=== PATIENT | male | born 1945 | race Caucasian/White ===

== ENCOUNTER 2017-07-20 17:23 | Inpatient (IN) ==
[2017-07-20 17:53] LABS: Hematocrit 38.8 % (37.5-50.1); Hemoglobin 13.5 g/dL (12.9-16.9); Lymphocytes # 0.9 K/mcL (0.6-4.6); Mean Corpuscular HGB Conc 34.8 g/dL (31.6-35.5); Mean Corpuscular Hemoglobin 33.2 pg (28.0-33.3); Mean Corpuscular Volume 95.3 fL (83.0-100.0); Mean Platelet Volume 10.9 fL (9.4-12.4); Platelet Count 260 K/mcL (140-400); Red Blood Count 4.07 M/mcL (4.19-5.50); Red Cell Distribution Width 14.1 % (11.5-14.5)
[2017-07-20 18:00] LABS: INR 1.2; Prothrombin Time 13.1 Seconds (9.4-12.1)
--- NOTE | 2017-07-20 18:00 | Emergency Department Note ---
Disposition Clinical Impression: Pleural effusion, Generalized weakness Altered mental status Qualifiers: Altered mental status type: unspecified Qualified Code(s): R41.82 - Altered mental status, unspecified Dyspnea Qualifiers: Dyspnea type: unspecified Qualified Code(s): R06.00 - Dyspnea, unspecified Metastatic lung cancer (metastasis from lung to other site) Qualifiers: Laterality: right Qualified Code(s): C34.91 - Malignant neoplasm of unspecified part of right bronchus or lung Disposition: Admitted As Inpatient Condition: Fair Time of Disposition: 22:16 Altered Mental Status HPI - General Chief Complaint: ED Fall Stated Complaint: fall, AMS Time Seen by Provider: 07/20/17 17:29 Source: EMS Mode of arrival: EMS Limitations: altered mental status Nursing Notes Reviewed: Yes Vital Signs Reviewed: Yes - History of Present Illness HPI Narrative: Patient is a 71-year-old male who presents to [facility] ED with concern for altered mental status and hypoxia. Family called EMS due to worsening altered mental status. They state he has been talking out of his head for the last 2 days. He is also been found after a fall down on the ground. Unknown how long QT was down for. His son and [id number] state that they check on him periodically but he lives at home by himself. Patient was diagnosed with lung cancer approximately one month ago and has underwent gamma knife radiation to the brain as well as started his first chemotherapy treatment on 07/16/2017. Patient is followed by the cancer center here Dr. Regalado. Patient continues to smoke every day. He is not on any home oxygen. Per EMS, upon their arrival, he was 71% on room air. They placed him on a nonrebreather. MD complaint: altered mental status, weakness Onset (ago): day(s) Timing confirmed by: family member Consistency of Symptoms: getting worse Context: cancer Associated symptoms: Reports: shortness of breath, other (weakness). Denies: chest pain, cough, fever, chills, nausea/vomiting, weakness - Related Data Home Medications Medication Instructions Recorded Confirmed Albuterol Sulfate [Proair Hfa] 2 puff IH QID 03/25/17 07/16/17 Aspirin Enteric Coated [Aspirin EC] 81 mg PO DAILY 03/25/17 07/16/17 Citalopram Hydrobromide [Celexa] 20 mg PO DAILY 03/25/17 07/16/17 Gabapentin [Neurontin] 300 mg PO TID 03/25/17 07/16/17 Insulin ASPART [Novolog Flexpen] 6 unit SQ AD PRN 03/25/17 07/16/17 Lisinopril [Zestril] 10 mg PO DAILY 03/25/17 07/16/17 Metformin HCl [Glucophage] 1,000 mg PO BID 03/25/17 07/16/17 Tiotropium [Spiriva] 18 mcg IH DAILY 03/25/17 07/16/17 Atorvastatin [Lipitor] 40 mg PO HS 05/08/17 07/16/17 Famotidine [Pepcid] 40 mg PO DAILY 05/08/17 07/16/17 Tramadol HCl [Ultram] 50 mg PO QID PRN 07/08/17 07/16/17 Previous Rx's Medication Instructions Recorded Dexamethasone [Decadron] 4 mg PO BID #36 tab 06/07/17 Ondansetron HCl [Zofran] 4 mg PO Q6H PRN #30 tablet 06/07/17 Prochlorperazine Maleate 10 mg PO Q6HR PRN #90 tablet 06/07/17 [Compazine] Megestrol Acetate [Megace] 800 mg PO DAILY #400 mls 07/08/17 Tetrahydrozoline HCl [Eye Drops] 15 ml OP BID #1 bottle 07/08/17 Allergies Allergy/AdvReac Type Severity Reaction Status Date / Time No Known Allergies Allergy Verified 07/16/17 11:03 All systems ED: reviewed and negative except as stated. Past Medical History - Past Medical History Attestation: Yes The following information was validated with the patient. Source: patient Medical history: Reports: cancer, diabetes, hyperlipidemia, hypertension Surgical history: Reports: orthopedic, other Psychiatric history: Reports: anxiety, depression - Social History Smoking Status: Current every day smoker Smokeless Tobacco Status: No Alcohol use: Reports: none Drug use: Reports: none Physical Exam - General Limitations: altered mental status General appearance: alert - Head Head exam: atraumatic, normocephalic, normal inspection - Eye Eye exam: Present: normal appearance, PERRL, EOMI - ENT ENT exam: normal exam, normal oropharynx, mucous membranes moist - Neck Neck exam: Present: normal inspection, full ROM, trachea midline - Chest Chest inspection: Present: normal inspection, symmetric chest wall rise - Respiratory Respiratory exam: Present: other (Wheezes present on the left lung; no breath sounds heard over the right lung) - Cardiovascular Cardiovascular exam: Present: normal rhythm, tachycardia, normal heart sounds - Abdominal Exam Abdominal exam: Present: soft, Non-Tender, other (Livedo reticularis present). Absent: tenderness, distention, guarding, rebound, rigidity - Extremities Exam Extremities exam: Present: normal inspection, full ROM, normal capillary refill. Absent: tenderness, pedal edema - Neurological Exam Neurological exam: Present: alert, other (Confused to date) - Psychiatric Psychiatric exam: Present: normal affect, normal mood - Skin Skin exam: Present: warm, dry, intact Course Course Narrative: Patient seen and examined. Complaint of altered mental status and report of hypoxemia with a pulse ox of 71% per EMS. Upon his arrival, we had difficulty obtaining an oxygen saturation. An ABG was obtained which was normal. Patient is on a nonrebreather. Denying any symptoms at this time. I discussed with the family who state he is a full code at this time. Critical care workup initiated. - Reevaluation(s) Reevaluation #1: Patient's lab work showed a mild leukocytosis. CT scans showed no acute traumatic injury. However he does have signs of metastatic disease in the retroperitoneal area as well as the adrenal glands. The chest x-ray showed white out of the right lung with mild midline shift of the mediastinal structures.. A thoracentesis was done with 2.5 L of fluid drained. There was more fluid that could have been drained. However, the catheter was removed to prevent possible reexpansion pulmonary edema. The fluid drained with serosanguineous appearing. Repeat chest x-ray showed improved aeration in the upper right lung frey. There was improvement in the mediastinal shift. Patient's blood pressure did drop to a systolic of 80s. 25 mg of albumin ordered to see if this would help his pressure since patient is likely protein calorie malnourished. I discussed with hospitalist Dr. Jackman who accepted patient for admission. Time: 22:15 Vital Signs Temperature 97.5 F L 07/20/17 17:25 Pulse Rate 99 07/20/17 17:25 Respiratory Rate 24 07/20/17 17:25 Blood Pressure 113/92 07/20/17 17:25 O2 Sat by Pulse Oximetry 0 07/20/17 17:25 Temperature 97.5 F L 07/20/17 17:25 Pulse Rate 97 07/20/17 21:28 Respiratory Rate 20 07/20/17 21:28 Blood Pressure 95/61 07/20/17 21:28 O2 Sat by Pulse Oximetry 99 07/20/17 21:28 Oxygen Delivery Oxygen Delivery Nasal Cannula Altered Mental Status - Medical Records Medical records reviewed: Yes I reviewed the patient's medical records. - Lab Data Lab results reviewed: Yes I reviewed the patient's lab results. Result diagrams: 07/20/17 17:43 07/20/17 17:43 Lab Results 07/20/17 07/20/17 07/20/17 Range/Units 17:43 17:43 17:43 WBC 14.5 H (4.3-11.1) K/mcL RBC 4.07 L (4.19-5.50) M/mcL Hgb 13.5 (12.9-16.9) g/dL Hct 38.8 (37.5-50.1) % MCV 95.3 (83.0-100.0) fL MCH 33.2 (28.0-33.3) pg MCHC 34.8 (31.6-35.5) g/dL RDW 14.1 (11.5-14.5) % Plt Count 260 (140-400) K/mcL MPV 10.9 (9.4-12.4) fL Seg Neutrophils % 82.0 % Lymphocytes % 6.0 % Monocytes % 10.0 % Eosinophils % 2.0 % Neutrophils # 11.9 H (1.6-8.9) K/mcL Lymphocytes # 0.9 (0.6-4.6) K/mcL Monocytes # 1.5 H (0.0-1.3) K/mcL Eosinophils # 0.3 (0.0-0.6) K/mcL Platelet Estimate Normal (Normal) Poikilocytosis 1+ A (Not Present) Anisocytosis 1+ A (Not Present) Daniel Cells 1+ A (Not Present) PT 13.1 H (9.4-12.1) Seconds INR 1.2 APTT 34.6 (26.0-36.0) Seconds Sample Site ABG pH (7.32-7.45) pH Units ABG pCO2 (35-45) mmHg ABG pO2 (85-104) mmHg ABG HCO3 (21-27) mEq/L ABG Total CO2 (20-26) mEq/L ABG O2 Saturation (95-98) % ABG Base Excess (-2 to 3) mEq/L Serafin Test Carboxyhemoglobin (0-5) % O2 Delivery Device Inspired O2 (1-15=lpm [id number]=%) Sodium 138 (136-145) mEq/L Potassium 4.5 (3.5-5.1) mEq/L Chloride 105 (98-107) mEq/L Carbon Dioxide 22 L (23-29) mEq/L BUN 36 H (8-23) mg/dL Creatinine 1.12 (0.70-1.30) mg/dL Est GFR ( Amer) > 60 (> 60) Est GFR (Non-Af Amer) > 60 (> 60) BUN/Creatinine Ratio 32 H (6-26) Glucose 237 H (70-105) mg/dL POC Glucose (70-99) mg/dL Calculated Osmolality 302 H (280-300) Calcium 8.6 (8.6-10.3) mg/dL Total Bilirubin 1.0 (0.3-1.0) mg/dL Direct Bilirubin 0.3 H (0.0-0.2) mg/dL Indirect Bilirubin 0.7 (0.0-1.2) mg/dL AST 10 L (13-39) Units/L ALT 18 (7-52) Units/L Alkaline Phosphatase 93 (34-104) Units/L Ammonia (16-53) mcmol/L Creatine Kinase 38 (30-223) Units/L Troponin I < 0.03 (< 0.04) ng/mL Serum Total Protein 5.5 L (6.4-8.9) g/dL Albumin 2.9 L (3.5-5.7) g/dL Globulin 2.6 (2.4-3.5) g/dL Albumin/Globulin Ratio 1.1 (1.1-2.2) TSH 1.648 (0.340-5.600) mcIU/mL Urine Color (Yellow) Urine Clarity (Clear) Urine pH (5.0-8.0) pH Units Ur Specific [place] (1.010-1.025) Urine Protein (Neg-Trace) mg/dL Urine Glucose (UA) (Normal) mg/dL Urine Ketones (Negative) mg/dL Urine Blood (Negative) Urine Nitrite (Negative) Urine Bilirubin (Negative) Urine Urobilinogen (Normal) mg/dL Ur Leukocyte Esterase (Negative) Ur Culture Indicated? (NO) Urine Opiates Screen (Hecmsc=176) ng/mL Ur Barbiturates Screen (Dhkkom=470) ng/mL Ur Phencyclidine Scrn (Cutoff=25) ng/mL Ur Amphetamines Screen (Vskerw=5678) ng/mL U Benzodiazepines Scrn (Mkfixi=771) ng/mL Urine Cocaine Screen (Cutoff= 300) ng/mL U Marijuana (THC) Screen (Cutoff = 50) ng/mL Ethyl Alcohol < 10 (Less than 10) mg/dL 07/20/17 07/20/17 07/20/17 Range/Units 17:43 17:52 17:53 WBC (4.3-11.1) K/mcL RBC (4.19-5.50) M/mcL Hgb (12.9-16.9) g/dL Hct (37.5-50.1) % MCV (83.0-100.0) fL MCH (28.0-33.3) pg MCHC (31.6-35.5) g/dL RDW (11.5-14.5) % Plt Count (140-400) K/mcL MPV (9.4-12.4) fL Seg Neutrophils % % Lymphocytes % % Monocytes % % Eosinophils % % Neutrophils # (1.6-8.9) K/mcL Lymphocytes # (0.6-4.6) K/mcL Monocytes # (0.0-1.3) K/mcL Eosinophils # (0.0-0.6) K/mcL Platelet Estimate (Normal) Poikilocytosis (Not Present) Anisocytosis (Not Present) Daniel Cells (Not Present) PT (9.4-12.1) Seconds INR APTT (26.0-36.0) Seconds Sample Site ABG pH (7.32-7.45) pH Units ABG pCO2 (35-45) mmHg ABG pO2 (85-104) mmHg ABG HCO3 (21-27) mEq/L ABG Total CO2 (20-26) mEq/L ABG O2 Saturation (95-98) % ABG Base Excess (-2 to 3) mEq/L Serafin Test Carboxyhemoglobin 4.6 (0-5) % O2 Delivery Device Inspired O2 (1-15=lpm [id number]=%) Sodium (136-145) mEq/L Potassium (3.5-5.1) mEq/L Chloride (98-107) mEq/L Carbon Dioxide (23-29) mEq/L BUN (8-23) mg/dL Creatinine (0.70-1.30) mg/dL Est GFR ( Amer) (> 60) Est GFR (Non-Af Amer) (> 60) BUN/Creatinine Ratio (6-26) Glucose (70-105) mg/dL POC Glucose 112 H (70-99) mg/dL Calculated Osmolality (280-300) Calcium (8.6-10.3) mg/dL Total Bilirubin (0.3-1.0) mg/dL Direct Bilirubin (0.0-0.2) mg/dL Indirect Bilirubin (0.0-1.2) mg/dL AST (13-39) Units/L ALT (7-52) Units/L Alkaline Phosphatase (34-104) Units/L Ammonia 31 (16-53) mcmol/L Creatine Kinase (30-223) Units/L Troponin I (< 0.04) ng/mL Serum Total Protein (6.4-8.9) g/dL Albumin (3.5-5.7) g/dL Globulin (2.4-3.5) g/dL Albumin/Globulin Ratio (1.1-2.2) TSH (0.340-5.600) mcIU/mL Urine Color (Yellow) Urine Clarity (Clear) Urine pH (5.0-8.0) pH Units Ur Specific [place] (1.010-1.025) Urine Protein (Neg-Trace) mg/dL Urine Glucose (UA) (Normal) mg/dL Urine Ketones (Negative) mg/dL Urine Blood (Negative) Urine Nitrite (Negative) Urine Bilirubin (Negative) Urine Urobilinogen (Normal) mg/dL Ur Leukocyte Esterase (Negative) Ur Culture Indicated? (NO) Urine Opiates Screen (Wkvewo=972) ng/mL Ur Barbiturates Screen (Qketaw=688) ng/mL Ur Phencyclidine Scrn (Cutoff=25) ng/mL Ur Amphetamines Screen (Whuhsa=4059) ng/mL U Benzodiazepines Scrn (Bylynb=878) ng/mL Urine Cocaine Screen (Cutoff= 300) ng/mL U Marijuana (THC) Screen (Cutoff = 50) ng/mL Ethyl Alcohol (Less than 10) mg/dL 07/20/17 07/20/17 07/20/17 Range/Units 17:57 18:02 18:02 WBC (4.3-11.1) K/mcL RBC (4.19-5.50) M/mcL Hgb (12.9-16.9) g/dL Hct (37.5-50.1) % MCV (83.0-100.0) fL MCH (28.0-33.3) pg MCHC (31.6-35.5) g/dL RDW (11.5-14.5) % Plt Count (140-400) K/mcL MPV (9.4-12.4) fL Seg Neutrophils % % Lymphocytes % % Monocytes % % Eosinophils % % Neutrophils # (1.6-8.9) K/mcL Lymphocytes # (0.6-4.6) K/mcL Monocytes # (0.0-1.3) K/mcL Eosinophils # (0.0-0.6) K/mcL Platelet Estimate (Normal) Poikilocytosis (Not Present) Anisocytosis (Not Present) Daniel Cells (Not Present) PT (9.4-12.1) Seconds INR APTT (26.0-36.0) Seconds Sample Site R Radial ABG pH 7.38 (7.32-7.45) pH Units ABG pCO2 40 (35-45) mmHg ABG pO2 372 H (85-104) mmHg ABG HCO3 24 (21-27) mEq/L ABG Total CO2 25 (20-26) mEq/L ABG O2 Saturation 100 H (95-98) % ABG Base Excess -1 (-2 to 3) mEq/L Serafin Test N/A Carboxyhemoglobin (0-5) % O2 Delivery Device NRB Inspired O2 15.0 (1-15=lpm [id number]=%) Sodium (136-145) mEq/L Potassium (3.5-5.1) mEq/L Chloride (98-107) mEq/L Carbon Dioxide (23-29) mEq/L BUN (8-23) mg/dL Creatinine (0.70-1.30) mg/dL Est GFR ( Amer) (> 60) Est GFR (Non-Af Amer) (> 60) BUN/Creatinine Ratio (6-26) Glucose (70-105) mg/dL POC Glucose (70-99) mg/dL Calculated Osmolality (280-300) Calcium (8.6-10.3) mg/dL Total Bilirubin (0.3-1.0) mg/dL Direct Bilirubin (0.0-0.2) mg/dL Indirect Bilirubin (0.0-1.2) mg/dL AST (13-39) Units/L ALT (7-52) Units/L Alkaline Phosphatase (34-104) Units/L Ammonia (16-53) mcmol/L Creatine Kinase (30-223) Units/L Troponin I (< 0.04) ng/mL Serum Total Protein (6.4-8.9) g/dL Albumin (3.5-5.7) g/dL Globulin (2.4-3.5) g/dL Albumin/Globulin Ratio (1.1-2.2) TSH (0.340-5.600) mcIU/mL Urine Color Dark Yellow (Yellow) Urine Clarity Clear (Clear) Urine pH 5.0 (5.0-8.0) pH Units Ur Specific [place] 1.027 H (1.010-1.025) Urine Protein Negative (Neg-Trace) mg/dL Urine Glucose (UA) Normal (Normal) mg/dL Urine Ketones Negative (Negative) mg/dL Urine Blood Negative (Negative) Urine Nitrite Negative (Negative) Urine Bilirubin Negative (Negative) Urine Urobilinogen Normal (Normal) mg/dL Ur Leukocyte Esterase Negative (Negative) Ur Culture Indicated? NO (NO) Urine Opiates Screen Negative (Gjytam=438) ng/mL Ur Barbiturates Screen Negative (Mrahju=129) ng/mL Ur Phencyclidine Scrn Negative (Cutoff=25) ng/mL Ur Amphetamines Screen Negative (Vhjipn=6025) ng/mL U Benzodiazepines Scrn Negative (Jaultk=747) ng/mL Urine Cocaine Screen Negative (Cutoff= 300) ng/mL U Marijuana (THC) Screen Negative (Cutoff = 50) ng/mL Ethyl Alcohol (Less than 10) mg/dL - Radiology Data Radiology results reviewed: Yes I reviewed the patient's radiology results. Chest X-Ray 07/20/17 17:29 IMPRESSION: 1. Interval development of complete white out right hemithorax presumably related to pleural effusion and consolidation. Underlying neoplasia cannot be excluded. 2. Underaeration left parahilar lung presumably related to expiratory phase of respiration during the radiograph. 3. No pneumothorax following right IJ catheter placement. D/ / Douglas Chamberlain / Douglas Chamberlain Interpreting Provider: Douglas Chamberlain - EKG Data EKG attestation: Yes I reviewed and interpreted this EKG. EKG results narrative: EKG done at 1743 shows normal sinus rhythm with a rate of [address] elevation. Mild depression noted in leads V 5 and V6. Normal axis. TPA Checklist - LKW: 3-4.5 hrs Add. Warnings/Precautions Patient/family understanding: The patient/family members have been counseled and understood the risk, benefit , and alternatives of treatment.
[2017-07-20 18:02] LABS: Activated Partial Thrombo Time 34.6 Seconds (26.0-36.0)
[2017-07-20 18:03] LABS: ABG Base Excess -1 mEq/L (-2 to 3); ABG HCO3 24 mEq/L (21-27); ABG Oxygen Saturation 100 % (95-98); ABG PCO2 40 mmHg (35-45); ABG PH 7.38 pH Units (7.32-7.45); ABG PO2 372 mmHg (85-104); ABG TCO2 25 mEq/L (20-26)
[2017-07-20] MEDS ORDERED: Ipratropium/Albuterol Neb 3 ML IH ONE (18:11)
[2017-07-20 18:17] LABS: Alanine Aminotransferase 18 Units/L (7-52); Albumin 2.9 g/dL (3.5-5.7); Albumin/Globulin Ratio 1.1 (1.1-2.2); Alkaline Phosphatase 93 Units/L (34-104); Aspartate Amino Transferase 10 Units/L (13-39); BUN/Creatinine Ratio 32 (6-26); Bilirubin,Direct 0.3 mg/dL (0.0-0.2); Bilirubin,Indirect 0.7 mg/dL (0.0-1.2); Blood Urea Nitrogen 36 mg/dL (8-23); Calcium 8.6 mg/dL (8.6-10.3); Carbon Dioxide 22 mEq/L (23-29); Chloride 105 mEq/L (98-107); Creatine Kinase 38 Units/L (30-223); Ethanol < 10 mg/dL (Less than 10); Globulin 2.6 g/dL (2.4-3.5); Glucose 237 mg/dL (70-105); Osmolality,Calculated 302 (280-300); Potassium 4.5 mEq/L (3.5-5.1); Sodium 138 mEq/L (136-145); Total Protein 5.5 g/dL (6.4-8.9); Troponin I < 0.03 ng/mL (< 0.04); eGFR For African Americans > 60 (> 60); eGFR For Non-African Americans > 60 (> 60)
[2017-07-20 18:17] LABS: Bilirubin,Urine Negative (Negative); Blood,Urine Negative (Negative); Clarity,Urine Clear (Clear); Color,Urine Dark Yellow (Yellow); Glucose,Urine (UA) Normal (Normal); Ketones,Urine Negative (Negative); Leukocyte Esterase,Urine Negative (Negative); Nitrite,Urine Negative (Negative); Protein,Urine Negative (Neg-Trace); Specific Gravity,Urine 1.027 (1.010-1.025); Urobilinogen,Urine Normal (Normal)
[2017-07-20 18:22] LABS: Eosinophils # 0.3 K/mcL (0.0-0.6); Monocytes # 1.5 K/mcL (0.0-1.3); Neutrophils # 11.9 K/mcL (1.6-8.9)
[2017-07-20 18:23] LABS: Anisocytosis 1+ (Not Present); Burr Cells 1+ (Not Present); Platelet Estimate Normal (Normal); Poikilocytosis 1+ (Not Present)
[2017-07-20 18:24] LABS: Amphetamine Screen,Urine Negative ng/mL (Cutoff=1000); Barbiturate Screen,Urine Negative ng/mL (Cutoff=200); Benzodiazepines Screen,Urine Negative ng/mL (Cutoff=200); Cannabinoid Screen,Urine Negative ng/mL (Cutoff = 50); Cocaine Screen,Urine Negative ng/mL (Cutoff= 300); Opiate Screen,Urine Negative ng/mL (Cutoff=300); Phencyclidine Screen,Urine Negative ng/mL (Cutoff=25)
[2017-07-20 18:29] LABS: Thyroid Stimulating Hormone 1.648 mcIU/mL (0.340-5.600)
[2017-07-20] MEDS ORDERED: Albumin 25% 25gram/100mL 25 GM/100 ML IV.SOLN IVPB ONE (20:56)
[2017-07-20] MEDS ORDERED: *HR* HYDROcodone/Acet 5/325 mg TABLET PO PRN (22:00)
[2017-07-20] MEDS ORDERED: Naloxone 0.4 MG/ML INJ IVP PRN (22:00)
[2017-07-20] MEDS ORDERED: D5% in Water 1,000 ML IVC PRN (22:05)
[2017-07-20] MEDS ORDERED: Dextrose Gel 15 GM/37.5 ML TUBE PO PRN ×2 (22:05)
[2017-07-20] MEDS ORDERED: *HR* Dextrose 50 % in Water (Syg) 50 ML SYRINGE IVP PRN (22:05)
[2017-07-20] MEDS ORDERED: Ondansetron ODT 4 MG TAB.RAPDIS PO PRN (22:09)
--- NOTE | 2017-07-20 22:09 | Internal Med History&Physical ---
<Jorge Sherwood - Last Filed: 07/20/17 23:18> Date of Encounter: 07/20/17 Time of Encounter: 22:09 Internal Medicine - H&P: HPI Chief complaint: AMS Admitted From: Home History of present illness: Mr. Izquierdo is a 71 year old male with past medical history of prostate cancer, type 2 diabetes, hypertension, prior CVA, recently diagnosed metastatic lung cancer presents to emergency room from home with complaint of altered mental status. At time of interview, patient does respond to questions however he he does appear confused and is not oriented to self, place or time. He is no family present at bedside and majority of history of present illness is obtained through chart review. Per chart review, family called EMS due to altered mental status for the last 2 days. He also reportedly experienced a fall with unknown down time. He reportedly lives at home by himself with his son and [id number] checking on him periodically. He had chemotherapy on 07/16/17 as well as gamma knife radiation to the brain for his metastatic lung cancer on 06/27/17. He also had a thoracentesis performed on 07/05 with 1.5L of fluid drained in [place] ED. Upon presentation to the emergency room, patient was reportedly hypoxic with oxygen saturation of 71% on room air. Respirations 24, pulse of 99. Labs were significant for a WBC of 14.5 ABG shows no evidence of hypoxia or hypercarbia. Remainder of labs significant only for a glucose of 237. Urine drug screen and urinalysis within normal limits. Imaging performed in the emergency room demonstrated right hemithorax filled pleural effusion and consolidation with heart and mediastinal shift, metastatic disease of the right adrenal gland and retroperitoneum, inferior right-sided prostate gland prominence likely malignancy, no evidence of acute trauma. Thoracentesis was performed emergency department with 2.5 L fluid obtained. His hypoxia did improve with this and oxygen administration, however his blood pressure did drop to a systolics of 80s. He was started on albumin in the emergency department. During time of this physicians interview, patient had no complaints and will was unsure of what brought him to the emergency department stating that "I just got here." Denies any symptoms shortness breath, chest pain, recent illness. Past Med Surg Social Fam HX - Past Medical History Medical history: cancer, diabetes, hyperlipidemia, hypertension Psychiatric history: anxiety, depression - Past Surgical History Surgical History: orthopedic, other - Social History Smoking Status: Current every day smoker Smokeless Tobacco Status: No Alcohol use: none Drug use: none Internal Medicine - H&P: Meds Albuterol Sulfate [Proair Hfa] 2 puff IH QID 03/25/17 [History] Aspirin Enteric Coated [Aspirin EC] 81 mg PO DAILY 03/25/17 [History] Citalopram Hydrobromide [Celexa] 20 mg PO DAILY 03/25/17 [History] Gabapentin [Neurontin] 300 mg PO TID 03/25/17 [History] Insulin ASPART [Novolog Flexpen] 6 unit SQ AD PRN 03/25/17 [History] Lisinopril [Zestril] 10 mg PO DAILY 03/25/17 [History] Metformin HCl [Glucophage] 1,000 mg PO BID 03/25/17 [History] Tiotropium [Spiriva] 18 mcg IH DAILY 03/25/17 [History] Atorvastatin [Lipitor] 40 mg PO HS 05/08/17 [History] Famotidine [Pepcid] 40 mg PO DAILY 05/08/17 [History] Dexamethasone [Decadron] 4 mg PO BID #36 tab 06/07/17 [Rx] Ondansetron HCl [Zofran] 4 mg PO Q6H PRN #30 tablet 06/07/17 [Rx] Prochlorperazine Maleate [Compazine] 10 mg PO Q6HR PRN #90 tablet 06/07/17 [Rx] Megestrol Acetate [Megace] 800 mg PO DAILY #400 mls 07/08/17 [Rx] Tetrahydrozoline HCl [Eye Drops] 15 ml OP BID #1 bottle 07/08/17 [Rx] Tramadol HCl [Ultram] 50 mg PO QID PRN 07/08/17 [History] 3 Allergy/AdvReac Type Severity Reaction Status Date / Time No Known Allergies Allergy Verified 07/16/17 11:03 ROS unobtainable: due to mental status All Systems PM: A 10-system review of systems was performed and is negative for pertinent findings except as documented above in the HPI. - Constitutional Vitals: Temp Pulse Resp BP Pulse Ox 97.5 F L 97 20 95/61 99 07/20/17 17:25 07/20/17 21:28 04/07/18 21:28 07/20/17 21:28 07/20/17 21:28 Exam: Gen.: Vitals noted. No acute distress. AAOx0. Resting comfortably in bed, no respiratory distress HEENT: PERRL/EOMI, oropharynx clear, Normocephalic, atraumatic. Dry mucous membranes Cardiac: Mildly tachycardic RRR, no murmur, +S1/S2 Pulmonary: Decreased breath sounds right greater than left, no wheezes, rales or rhonchi, equal chest expansion Abdomen: soft, nontender, BS noted, no guarding MSK: ROM intact, no joint swelling noted Extremities: no BLE edema, nontender calf, no cyanosis or clubbing. Abrasion on left pretibial region, well healing Neuro: Unable to assess secondary to mental status. No focal deficits noted during interview Internal Med - H&P Results - Labs CBC & Chem 7: 07/20/17 17:43 07/20/17 17:43 - Assessment and plan (1) Altered mental status Current Visit: Yes Status: Acute Assessment and plan: - Altered mental status per family possibly secondary to hypoxia versus metabolic - During time of interview, patient is alert and oriented 0 - Resting calmly as this time, will treat underlying illnesses as below Qualifiers: Altered mental status type: disorientation Qualified Code(s): R41.0 - Disorientation, unspecified (2) Pleural effusion Current Visit: Yes Status: Acute Assessment and plan: - Profusion demonstrated on both chest x-ray and chest CT performed emergency department - Status post thoracentesis with 2.5 L of fluid removed, serosanguineous in appearance - First episode of pleural effusion - Etiology is likely secondary to known malignancy. - Patient currently tolerating 2 L of oxygen via nasal cannula with saturation in the high 90s Plan - Status post thoracentesis with good oxygenation at this time - We will send fluid for analysis - Continue monitor for respiratory status (3) Metastatic lung cancer (metastasis from lung to other site) Current Visit: Yes Status: Acute Assessment and plan: Known history of right lung cancer, stage IV - Also with Dr. Lindsay at [facility] - Metastatic disease to right pelvic sidewall, bladder, right parietal region - On chemotherapy with last dose of taxotere on 4/3/18, [employer] - Likely contributing to complaints of weakness with possible altered mental status from drug side effects - We will continue treatment as outpatient Qualifiers: Laterality: right Qualified Code(s): C34.91 - Malignant neoplasm of unspecified part of right bronchus or lung (4) Prostate CA Current Visit: Yes Status: Chronic Assessment and plan: Known history of prostate cancer, demonstrated on abdominal CT Continue management as outpatient (5) Dyspnea Current Visit: Yes Status: Acute Assessment and plan: Secondary to pleural effusion as above Supplemental oxygen as needed Treat underlying illnesses as above Qualifiers: Dyspnea type: shortness of breath Qualified Code(s): R06.02 - Shortness of breath; R06.00 - Dyspnea, unspecified; R06.01 - Orthopnea (6) Diabetes Current Visit: Yes Status: Chronic Assessment and plan: - Type II DM - No A1c on record - BS in ED of 237 - SSI and A1c with morning labs. Qualifiers: Diabetes mellitus type: type 2 Diabetes mellitus terminal operator insulin use: unspecified halfway insulin use status Diabetes mellitus complication status : with unspecified complications Qualified Code(s): E11.8 - Type 2 diabetes mellitus with unspecified complications (7) Osteoarthritis Current Visit: Yes Status: Chronic Assessment and plan: - Pain management as needed. Qualifiers: Osteoarthritis location: unspecified site Osteoarthritis type: unspecified Qualified Code(s): M19.90 - Unspecified osteoarthritis, unspecified site (8) Hypertension Current Visit: Yes Status: Chronic Assessment and plan: -Borderline hypotension emergency room following thoracentesis - Currently receiving albumin infusions - We will continue to monitor closely and hold home medications as needed Qualifiers: Hypertension type: essential hypertension Qualified Code(s): I10 - Essential (primary) hypertension (9) Generalized weakness Current Visit: Yes Status: Acute Assessment and plan: - Likely related to known metastatic cancer, deconditioning, inadequate nutrition - Continue albumin, treat underlying illnesses - Reportedly lives at home and able to complete ADLs by himself - Would likely benefit from PT/OT while inpatient (10) Goals of care, counseling/discussion Current Visit: Yes Status: Acute Assessment and plan: Per ED documentation and they are discussion with patient's family, full CODE STATUS is desired. Family was not present at bedside during time of my interview. We will respect the family's wishes as patient is not capable of making his own decisions at this time. (11) DVT prophylaxis Current Visit: Yes Status: Acute Assessment and plan: Lovenox 40 mg Qday - Time Spent With Patient Total time spent is greater than 50% in coordination of care (as documented) at patient's floor/unit and/or counseling patient: less than 15 minutes <Phani Jackman - Last Filed: 07/21/17 02:10> Date of Encounter: 07/20/17 Internal Medicine - H&P: HPI History of present illness: Mr. Izquierdo is a 71 year old male All Systems PM: A 10-system review of systems was performed and is negative for pertinent findings except as documented above in the HPI. - Constitutional Vitals: Temp Pulse Resp BP Pulse Ox 100 F H 88 22 121/73 100 07/20/17 22:57 07/21/17 00:35 07/21/17 00:35 07/20/17 22:57 07/21/17 00:35 Internal Med - H&P Results - Labs CBC & Chem 7: 07/20/17 17:43 07/20/17 17:43 - Attending Attestation I examined this patient and my medical decision-making was reviewed with the Resident Physician. I agree with the documented findings, disposition and treatment plan as described except to the extent set forth below. Mr. Izquierdo is a 71 year old male with past medical history of prostate cancer, type 2 diabetes, hypertension, prior CVA, recently diagnosed metastatic lung cancer presents to emergency room from home with complaint of altered mental status. Pt is alert, awake and disoriented. Unable to provide me any history. Gen: A, A, Disoriented Chest : Diminishes BS b/l, more diminishes on Rt side.. mild wheezing. No crackles Heart: S1S2+ a/p 1. Acute hypoxic resp failure 2. Severe Rt pleural effusion 3. Metastatic lung cancer s/p thoracocentesis removed 2.5 lit fluid in the ER Pulm consult in AM cont close monitoring If BP allows will start him on Lasix 2 D Echo 4. SIRS - pt does meet SIRS criteria with fever 100,.0, mild tachycardia and source of inf as PNA 5. Rt side PNA reviewed CXR - diffuse pleural effuision on Rt side with possible infiltrates started on empirical abx Zosyn - Time Spent With Patient Total time spent is greater than 50% in coordination of care (as documented) at patient's floor/unit and/or counseling patient:
--- NOTE | 2017-07-20 22:19 | Emergency Department Note ---
Disposition Clinical Impression: Pleural effusion, Generalized weakness Altered mental status Qualifiers: Altered mental status type: unspecified Qualified Code(s): R41.82 - Altered mental status, unspecified Dyspnea Qualifiers: Dyspnea type: unspecified Qualified Code(s): R06.00 - Dyspnea, unspecified Disposition: Admitted As Inpatient Condition: Fair General Adult HPI - General Chief complaint: ED Fall Stated complaint: fall, AMS Time Seen by Provider: 07/20/17 17:29 Source: EMS Mode of arrival: EMS Limitations: altered mental status Nursing Notes Reviewed: Yes Vital Signs Reviewed: Yes - History of Present Illness Pain Scale: 0 - Related Data Home Medications Medication Instructions Recorded Confirmed Albuterol Sulfate [Proair Hfa] 2 puff IH QID 03/25/17 07/16/17 Aspirin Enteric Coated [Aspirin EC] 81 mg PO DAILY 03/25/17 07/16/17 Citalopram Hydrobromide [Celexa] 20 mg PO DAILY 03/25/17 07/16/17 Gabapentin [Neurontin] 300 mg PO TID 03/25/17 07/16/17 Insulin ASPART [Novolog Flexpen] 6 unit SQ AD PRN 03/25/17 07/16/17 Lisinopril [Zestril] 10 mg PO DAILY 03/25/17 07/16/17 Metformin HCl [Glucophage] 1,000 mg PO BID 03/25/17 07/16/17 Tiotropium [Spiriva] 18 mcg IH DAILY 03/25/17 07/16/17 Atorvastatin [Lipitor] 40 mg PO HS 05/08/17 07/16/17 Famotidine [Pepcid] 40 mg PO DAILY 05/08/17 07/16/17 Tramadol HCl [Ultram] 50 mg PO QID PRN 07/08/17 07/16/17 Previous Rx's Medication Instructions Recorded Dexamethasone [Decadron] 4 mg PO BID #36 tab 06/07/17 Ondansetron HCl [Zofran] 4 mg PO Q6H PRN #30 tablet 06/07/17 Prochlorperazine Maleate 10 mg PO Q6HR PRN #90 tablet 06/07/17 [Compazine] Megestrol Acetate [Megace] 800 mg PO DAILY #400 mls 07/08/17 Tetrahydrozoline HCl [Eye Drops] 15 ml OP BID #1 bottle 07/08/17 Allergies Allergy/AdvReac Type Severity Reaction Status Date / Time No Known Allergies Allergy Verified 07/16/17 11:03 Past Medical History - Past Medical History Medical history: Reports: cancer, diabetes, hyperlipidemia, hypertension Surgical history: Reports: orthopedic, other Psychiatric history: Reports: anxiety, depression - Social History Smoking Status: Current every day smoker Smokeless Tobacco Status: No Alcohol use: Reports: none Drug use: Reports: none Physical Exam - General Limitations: altered mental status General appearance: alert Course Vital Signs Temperature 97.5 F L 07/20/17 17:25 Pulse Rate 99 07/20/17 17:25 Respiratory Rate 24 07/20/17 17:25 Blood Pressure 113/92 07/20/17 17:25 O2 Sat by Pulse Oximetry 0 07/20/17 17:25 Temperature 97.5 F L 07/20/17 17:25 Pulse Rate 101 07/20/17 22:10 Respiratory Rate 20 07/20/17 21:28 Blood Pressure 100/56 07/20/17 22:10 O2 Sat by Pulse Oximetry 99 07/20/17 21:28 Oxygen Delivery Oxygen Delivery Nasal Cannula Medical Decision Making - Lab Data Result diagrams: 07/20/17 17:43 07/20/17 17:43 Lab Results 07/20/17 07/20/17 07/20/17 Range/Units 17:43 17:43 17:43 WBC 14.5 H (4.3-11.1) K/mcL RBC 4.07 L (4.19-5.50) M/mcL Hgb 13.5 (12.9-16.9) g/dL Hct 38.8 (37.5-50.1) % MCV 95.3 (83.0-100.0) fL MCH 33.2 (28.0-33.3) pg MCHC 34.8 (31.6-35.5) g/dL RDW 14.1 (11.5-14.5) % Plt Count 260 (140-400) K/mcL MPV 10.9 (9.4-12.4) fL Seg Neutrophils % 82.0 % Lymphocytes % 6.0 % Monocytes % 10.0 % Eosinophils % 2.0 % Neutrophils # 11.9 H (1.6-8.9) K/mcL Lymphocytes # 0.9 (0.6-4.6) K/mcL Monocytes # 1.5 H (0.0-1.3) K/mcL Eosinophils # 0.3 (0.0-0.6) K/mcL Platelet Estimate Normal (Normal) Poikilocytosis 1+ A (Not Present) Anisocytosis 1+ A (Not Present) Cromwell Cells 1+ A (Not Present) PT 13.1 H (9.4-12.1) Seconds INR 1.2 APTT 34.6 (26.0-36.0) Seconds Sample Site ABG pH (7.32-7.45) pH Units ABG pCO2 (35-45) mmHg ABG pO2 (85-104) mmHg ABG HCO3 (21-27) mEq/L ABG Total CO2 (20-26) mEq/L ABG O2 Saturation (95-98) % ABG Base Excess (-2 to 3) mEq/L Serafin Test Carboxyhemoglobin (0-5) % O2 Delivery Device Inspired O2 (1-15=lpm [id number]=%) Sodium 138 (136-145) mEq/L Potassium 4.5 (3.5-5.1) mEq/L Chloride 105 (98-107) mEq/L Carbon Dioxide 22 L (23-29) mEq/L BUN 36 H (8-23) mg/dL Creatinine 1.12 (0.70-1.30) mg/dL Est GFR ( Amer) > 60 (> 60) Est GFR (Non-Af Amer) > 60 (> 60) BUN/Creatinine Ratio 32 H (6-26) Glucose 237 H (70-105) mg/dL POC Glucose (70-99) mg/dL Calculated Osmolality 302 H (280-300) Calcium 8.6 (8.6-10.3) mg/dL Total Bilirubin 1.0 (0.3-1.0) mg/dL Direct Bilirubin 0.3 H (0.0-0.2) mg/dL Indirect Bilirubin 0.7 (0.0-1.2) mg/dL AST 10 L (13-39) Units/L ALT 18 (7-52) Units/L Alkaline Phosphatase 93 (34-104) Units/L Ammonia (16-53) mcmol/L Creatine Kinase 38 (30-223) Units/L Troponin I < 0.03 (< 0.04) ng/mL Serum Total Protein 5.5 L (6.4-8.9) g/dL Albumin 2.9 L (3.5-5.7) g/dL Globulin 2.6 (2.4-3.5) g/dL Albumin/Globulin Ratio 1.1 (1.1-2.2) TSH 1.648 (0.340-5.600) mcIU/mL Urine Color (Yellow) Urine Clarity (Clear) Urine pH (5.0-8.0) pH Units Ur Specific [place] (1.010-1.025) Urine Protein (Neg-Trace) mg/dL Urine Glucose (UA) (Normal) mg/dL Urine Ketones (Negative) mg/dL Urine Blood (Negative) Urine Nitrite (Negative) Urine Bilirubin (Negative) Urine Urobilinogen (Normal) mg/dL Ur Leukocyte Esterase (Negative) Ur Culture Indicated? (NO) Urine Opiates Screen (Zuxnbr=385) ng/mL Ur Barbiturates Screen (Pzincq=007) ng/mL Ur Phencyclidine Scrn (Cutoff=25) ng/mL Ur Amphetamines Screen (Nvsoom=7157) ng/mL U Benzodiazepines Scrn (Aiepuu=726) ng/mL Urine Cocaine Screen (Cutoff= 300) ng/mL U Marijuana (THC) Screen (Cutoff = 50) ng/mL Ethyl Alcohol < 10 (Less than 10) mg/dL 07/20/17 07/20/17 07/20/17 Range/Units 17:43 17:52 17:53 WBC (4.3-11.1) K/mcL RBC (4.19-5.50) M/mcL Hgb (12.9-16.9) g/dL Hct (37.5-50.1) % MCV (83.0-100.0) fL MCH (28.0-33.3) pg MCHC (31.6-35.5) g/dL RDW (11.5-14.5) % Plt Count (140-400) K/mcL MPV (9.4-12.4) fL Seg Neutrophils % % Lymphocytes % % Monocytes % % Eosinophils % % Neutrophils # (1.6-8.9) K/mcL Lymphocytes # (0.6-4.6) K/mcL Monocytes # (0.0-1.3) K/mcL Eosinophils # (0.0-0.6) K/mcL Platelet Estimate (Normal) Poikilocytosis (Not Present) Anisocytosis (Not Present) Cromwell Cells (Not Present) PT (9.4-12.1) Seconds INR APTT (26.0-36.0) Seconds Sample Site ABG pH (7.32-7.45) pH Units ABG pCO2 (35-45) mmHg ABG pO2 (85-104) mmHg ABG HCO3 (21-27) mEq/L ABG Total CO2 (20-26) mEq/L ABG O2 Saturation (95-98) % ABG Base Excess (-2 to 3) mEq/L Serafin Test Carboxyhemoglobin 4.6 (0-5) % O2 Delivery Device Inspired O2 (1-15=lpm [id number]=%) Sodium (136-145) mEq/L Potassium (3.5-5.1) mEq/L Chloride (98-107) mEq/L Carbon Dioxide (23-29) mEq/L BUN (8-23) mg/dL Creatinine (0.70-1.30) mg/dL Est GFR ( Amer) (> 60) Est GFR (Non-Af Amer) (> 60) BUN/Creatinine Ratio (6-26) Glucose (70-105) mg/dL POC Glucose 112 H (70-99) mg/dL Calculated Osmolality (280-300) Calcium (8.6-10.3) mg/dL Total Bilirubin (0.3-1.0) mg/dL Direct Bilirubin (0.0-0.2) mg/dL Indirect Bilirubin (0.0-1.2) mg/dL AST (13-39) Units/L ALT (7-52) Units/L Alkaline Phosphatase (34-104) Units/L Ammonia 31 (16-53) mcmol/L Creatine Kinase (30-223) Units/L Troponin I (< 0.04) ng/mL Serum Total Protein (6.4-8.9) g/dL Albumin (3.5-5.7) g/dL Globulin (2.4-3.5) g/dL Albumin/Globulin Ratio (1.1-2.2) TSH (0.340-5.600) mcIU/mL Urine Color (Yellow) Urine Clarity (Clear) Urine pH (5.0-8.0) pH Units Ur Specific [place] (1.010-1.025) Urine Protein (Neg-Trace) mg/dL Urine Glucose (UA) (Normal) mg/dL Urine Ketones (Negative) mg/dL Urine Blood (Negative) Urine Nitrite (Negative) Urine Bilirubin (Negative) Urine Urobilinogen (Normal) mg/dL Ur Leukocyte Esterase (Negative) Ur Culture Indicated? (NO) Urine Opiates Screen (Nzxsyi=875) ng/mL Ur Barbiturates Screen (Ygkqve=987) ng/mL Ur Phencyclidine Scrn (Cutoff=25) ng/mL Ur Amphetamines Screen ([place]=2173) ng/mL U Benzodiazepines Scrn (Onercg=763) ng/mL Urine Cocaine Screen (Cutoff= 300) ng/mL U Marijuana (THC) Screen (Cutoff = 50) ng/mL Ethyl Alcohol (Less than 10) mg/dL 07/20/17 07/20/17 07/20/17 Range/Units 17:57 18:02 18:02 WBC (4.3-11.1) K/mcL RBC (4.19-5.50) M/mcL Hgb (12.9-16.9) g/dL Hct (37.5-50.1) % MCV (83.0-100.0) fL MCH (28.0-33.3) pg MCHC (31.6-35.5) g/dL RDW (11.5-14.5) % Plt Count (140-400) K/mcL MPV (9.4-12.4) fL Seg Neutrophils % % Lymphocytes % % Monocytes % % Eosinophils % % Neutrophils # (1.6-8.9) K/mcL Lymphocytes # (0.6-4.6) K/mcL Monocytes # (0.0-1.3) K/mcL Eosinophils # (0.0-0.6) K/mcL Platelet Estimate (Normal) Poikilocytosis (Not Present) Anisocytosis (Not Present) Cromwell Cells (Not Present) PT (9.4-12.1) Seconds INR APTT (26.0-36.0) Seconds Sample Site R Radial ABG pH 7.38 (7.32-7.45) pH Units ABG pCO2 40 (35-45) mmHg ABG pO2 372 H (85-104) mmHg ABG HCO3 24 (21-27) mEq/L ABG Total CO2 25 (20-26) mEq/L ABG O2 Saturation 100 H (95-98) % ABG Base Excess -1 (-2 to 3) mEq/L Serafin Test N/A Carboxyhemoglobin (0-5) % O2 Delivery Device NRB Inspired O2 15.0 (1-15=lpm [id number]=%) Sodium (136-145) mEq/L Potassium (3.5-5.1) mEq/L Chloride (98-107) mEq/L Carbon Dioxide (23-29) mEq/L BUN (8-23) mg/dL Creatinine (0.70-1.30) mg/dL Est GFR ( Amer) (> 60) Est GFR (Non-Af Amer) (> 60) BUN/Creatinine Ratio (6-26) Glucose (70-105) mg/dL POC Glucose (70-99) mg/dL Calculated Osmolality (280-300) Calcium (8.6-10.3) mg/dL Total Bilirubin (0.3-1.0) mg/dL Direct Bilirubin (0.0-0.2) mg/dL Indirect Bilirubin (0.0-1.2) mg/dL AST (13-39) Units/L ALT (7-52) Units/L Alkaline Phosphatase (34-104) Units/L Ammonia (16-53) mcmol/L Creatine Kinase (30-223) Units/L Troponin I (< 0.04) ng/mL Serum Total Protein (6.4-8.9) g/dL Albumin (3.5-5.7) g/dL Globulin (2.4-3.5) g/dL Albumin/Globulin Ratio (1.1-2.2) TSH (0.340-5.600) mcIU/mL Urine Color Dark Yellow (Yellow) Urine Clarity Clear (Clear) Urine pH 5.0 (5.0-8.0) pH Units Ur Specific [place] 1.027 H (1.010-1.025) Urine Protein Negative (Neg-Trace) mg/dL Urine Glucose (UA) Normal (Normal) mg/dL Urine Ketones Negative (Negative) mg/dL Urine Blood Negative (Negative) Urine Nitrite Negative (Negative) Urine Bilirubin Negative (Negative) Urine Urobilinogen Normal (Normal) mg/dL Ur Leukocyte Esterase Negative (Negative) Ur Culture Indicated? NO (NO) Urine Opiates Screen Negative (Micicx=445) ng/mL Ur Barbiturates Screen Negative (Nnbwzs=920) ng/mL Ur Phencyclidine Scrn Negative (Cutoff=25) ng/mL Ur Amphetamines Screen Negative (Htcppt=4918) ng/mL U Benzodiazepines Scrn Negative (Huwbey=416) ng/mL Urine Cocaine Screen Negative (Cutoff= 300) ng/mL U Marijuana (THC) Screen Negative (Cutoff = 50) ng/mL Ethyl Alcohol (Less than 10) mg/dL Attestation Statement - Attestation Attestation: I examined this patient and my medical decision-making was reviewed with the Resident Physician. I agree with the documented findings, disposition and treatment plan as described except to the extent set forth below. Patient has history of lung cancer presents with dyspnea and reported hypoxia. Blood gas was obtained by the resident using ultrasound guidance. This shows no significant pH derangement. No evidence of hypoxia. Normal SaO2. Patient was of sclerae found to have large pleural effusion with some mediastinal compression. In an attempt to not enter the spiculated apical lesion we opted to do posterior right-sided thoracentesis and did perform this without difficulty removing approximately 2000 mL's of fluid. The patient tolerated the procedure without difficulty. I would expect that he would need further thoracentesis at some point however in the event to not compromise hemodynamics or causes too much reexpansion pain or edema we deferred further drainage inpatient management. Mediastinal shift was resolved. I spent greater than 35 minutes of critical care time resuscitating this acutely ill patient suffering from respiratory failure from large pleural effusion. Critical care time was excluding billable procedures.
[2017-07-20] MEDS: Acetaminophen 325 MG TABLET PO PRN (23:44)
[2017-07-21] MEDS ORDERED: Ipratropium/Albuterol Neb 3 ML IH PRN (01:55)
[2017-07-21] MEDS: Piperacillin/Tazobactam 3.375 GM in 0.9 % Sodium Chloride Mini Bag 100 ML IVPB SCH ×3 (02:42→19:54)
[2017-07-21 03:02] LABS: Hematocrit 33.9 % (37.5-50.1); Mean Corpuscular HGB Conc 34.8 g/dL (31.6-35.5); Mean Corpuscular Volume 94.7 fL (83.0-100.0); Mean Platelet Volume 11.5 fL (9.4-12.4); Platelet Count 227 K/mcL (140-400); Red Blood Count 3.58 M/mcL (4.19-5.50); Red Cell Distribution Width 14.2 % (11.5-14.5)
[2017-07-21 03:07] LABS: Hemoglobin 11.8 g/dL (12.9-16.9)
[2017-07-21 03:09] LABS: INR 1.3; Prothrombin Time 14.2 Seconds (9.4-12.1)
[2017-07-21 03:12] LABS: Activated Partial Thrombo Time 32.4 Seconds (26.0-36.0)
[2017-07-21 03:17] LABS: Alanine Aminotransferase 15 Units/L (7-52); Albumin 3.2 g/dL (3.5-5.7); Albumin/Globulin Ratio 1.5 (1.1-2.2); Alkaline Phosphatase 76 Units/L (34-104); Aspartate Amino Transferase 8 Units/L (13-39); BUN/Creatinine Ratio 30 (6-26); Bilirubin,Total 1.1 mg/dL (0.3-1.0); Blood Urea Nitrogen 42 mg/dL (8-23); Calcium 8.6 mg/dL (8.6-10.3); Carbon Dioxide 25 mEq/L (23-29); Chloride 104 mEq/L (98-107); Globulin 2.2 g/dL (2.4-3.5); Glucose 170 mg/dL (70-105); Lactate Dehydrogenase 152 Units/L (140-271); Magnesium 1.5 mg/dL (1.6-2.6); Osmolality,Calculated 296 (280-300); Potassium 4.3 mEq/L (3.5-5.1); Sodium 136 mEq/L (136-145); Total Protein 5.4 g/dL (6.4-8.9); eGFR For African Americans > 60 (> 60); eGFR For Non-African Americans 50 (> 60)
[2017-07-21 03:19] LABS: Lymphocytes # 1.9 K/mcL (0.6-4.6); Neutrophils # 6.4 K/mcL (1.6-8.9); Platelet Estimate Normal (Normal)
[2017-07-21 03:52] LABS: Adenovirus Not Detected (Not Detect); Bordetella Pertussis Not Detected (Not Detect); Chlamydophila pneumoniae Not Detected (Not Detect); Coronavirus 229E Not Detected (Not Detect); Coronavirus HKU1 Not Detected (Not Detect); Coronavirus NL63 Not Detected (Not Detect); Coronavirus OC43 Not Detected (Not Detect); Human Metapneumovirus Not Detected (Not Detect); Human Rhinovirus/Enterovirus Not Detected (Not Detect); Influenza A Subtype 2009 H1 Not Detected (Not Detect); Influenza A Untypeable Not Detected (Not Detect); Influenza B Not Detected (Not Detect); Mycoplasma pneumoniae Not Detected (Not Detect); Parainfluenza Virus 1 Not Detected (Not Detect); Parainfluenza Virus 2 Not Detected (Not Detect); Parainfluenza Virus 3 Not Detected (Not Detect); Parainfluenza Virus 4 Not Detected (Not Detect); Respiratory Syncytial Virus Not Detected (Not Detect)
[2017-07-21] MEDS: *HR* Enoxaparin 40 MG/0.4 ML SYRINGE SQ SCH (06:15)
--- NOTE | 2017-07-21 06:42 | Pulmonology Consult Note ---
Date of Encounter: 07/21/17 Time of Encounter: 06:41 Assessment and Plan (1) Sepsis Current Visit: Yes Status: Acute Sepsis of unclear etiology but concerning for pneumonia given altered mental status and possibility of aspiration although CT scan is not confirmatory of this it is not fully excluded. Recommend broadly culturing the patient if not already obtained he is on broad-spectrum antimicrobials ago for hospital associated organisms. With planned to de-escalate over the next 24-48 hours based on culture and sensitivities. Blood pressure has been low normal for which I recommend consideration of use of colloid such as 5% albumin for volume expansion if needed Qualifiers: Sepsis type: sepsis due to unspecified organism Qualified Code(s): A41.9 - Sepsis, unspecified organism (2) Altered mental status Current Visit: Yes Status: Acute This is multifactorial including advanced malignancy likely acute sepsis metabolic derangements etc. ABG performed last night was not show evidence of hypercarbia it would be reasonable to repeat ABG to make sure there is no worsening in PCO2 given hypoventilation related to both mental status as well as shortness of lung physiology from pleural effusion Qualifiers: Altered mental status type: disorientation Qualified Code(s): R41.0 - Disorientation, unspecified (3) Pleural effusion Current Visit: Yes Status: Acute This is likely malignant patient saturating well on 2 L) does not appear to be in any respiratory distress and do not think that urgent thoracentesis is necessary. I did discuss with the patient's POA his son regarding possible placement of Pleurx catheter for this which would ultimately be in the patient' s best interest even in a hospice type of situation and the family so they wanted take a watch and waiting attitude right now which I said is reasonable and I will have Dr Sanders follow-up over the next 24-48 hours to schedule this as necessary. (4) Metastatic lung cancer (metastasis from lung to other site) Current Visit: Yes Status: Acute Overall externally poor prognosis palliative care is following which is reasonable CODE STATUS is been changed from full to DNAR are with patient being okay for "short-term intubation" Qualifiers: Laterality: right Qualified Code(s): C34.91 - Malignant neoplasm of unspecified part of right bronchus or lung History of Present Illness Consult date: 07/21/17 Requesting physician: Phani Jackman Reason for consult: pleural effusion Chief complaint: Difficulty in Breathing History of present illness: This is a 71-year-old gentleman with a history of prostate cancer and now metastatic lung cancer who presented with altered mental status. The history was obtained entirely from the bedside nurse the medical record as the patient is delirious however the information was corroborated by the healthcare power of assistant city attorney his son Harrison. Family: EMS due to altered mental status and he reportedly had a fall he does live by himself but has not son and [id number] checking on him frequently chemotherapy was started for lung cancer on the third he also had gamma knife radiation to the brain for metastatic lung cancer on 06/27/17. He had a history of malignant pleural effusion and thoracentesis was last done on 323. Upon presentation to the emergency room was reportedly hypoxic with oxygen saturation of 71% however ABG was not consistent with any abnormality. He had extensive imaging of the head chest and spine which was negative for traumatic sequelae however he was noted to have a large right-sided pleural effusion which essentially encompassed the entire right hemithorax with mediastinal shift to the left. This led to performing a thoracentesis with 2.5 L of fluid removed. He said evidence of sepsis of unclear etiology and has been started on broad-spectrum antimicrobials blood pressure has been for the most part stable but on the lower side he continues to be delirious. Pulmonary was consulted to evaluate the patient for this large right-sided pleural effusion Past Med Surg Social Fam HX - Past Medical History Medical history: cancer, diabetes, hyperlipidemia, hypertension Psychiatric history: anxiety, depression - Past Surgical History Surgical History: orthopedic, other - Social History Smoking Status: Current every day smoker Smokeless Tobacco Status: No Alcohol use: none Drug use: none Medications and Allergies Albuterol Sulfate [Proair Hfa] 2 puff IH QID 03/25/17 [History] Aspirin Enteric Coated [Aspirin EC] 81 mg PO DAILY 03/25/17 [History] Citalopram Hydrobromide [Celexa] 20 mg PO DAILY 03/25/17 [History] Gabapentin [Neurontin] 300 mg PO TID 03/25/17 [History] Insulin ASPART [Novolog Flexpen] 6 unit SQ AD PRN 03/25/17 [History] Lisinopril [Zestril] 10 mg PO DAILY 03/25/17 [History] Metformin HCl [Glucophage] 1,000 mg PO BID 03/25/17 [History] Tiotropium [Spiriva] 18 mcg IH DAILY 03/25/17 [History] Atorvastatin [Lipitor] 40 mg PO HS 05/08/17 [History] Famotidine [Pepcid] 40 mg PO DAILY 05/08/17 [History] Dexamethasone [Decadron] 4 mg PO BID #36 tab 06/07/17 [Rx] Ondansetron HCl [Zofran] 4 mg PO Q6H PRN #30 tablet 06/07/17 [Rx] Prochlorperazine Maleate [Compazine] 10 mg PO Q6HR PRN #90 tablet 06/07/17 [Rx] Megestrol Acetate [Megace] 800 mg PO DAILY #400 mls 07/08/17 [Rx] Tetrahydrozoline HCl [Eye Drops] 15 ml OP BID #1 bottle 07/08/17 [Rx] Tramadol HCl [Ultram] 50 mg PO QID PRN 07/08/17 [History] 3 Allergy/AdvReac Type Severity Reaction Status Date / Time No Known Allergies Allergy Verified 07/16/17 11:03 All Systems: The remainder of the systems were reviewed and are negative Physical Examination Vital Signs: Vital Signs, Last 4 Hours Temp Pulse Resp BP Pulse Ox 07/21/17 05:05 93 24 99 07/21/17 04:47 20 100 07/21/17 04:20 100.4 F H 93 24 97/71 99 General appearance: no acute distress, other (Patient is confused unable to answer questions consistently or follow commands consistently) Eyes: nonicteric ENT: oropharynx moist Neck: supple Effort: normal Auscultation: left: rales, right: diminished breath sounds Cardiovascular: regular rate and rhythm Gastrointestinal: normoactive bowel sounds, soft, non-tender Integumentary: normal Extremities: edema (Trisler show any pitting edema) Musculoskeletal: no deformities pupils equal and round, other (Patient noted to move all extremities spontaneously without evidence of deficit however he is unable to follow my commands to test is motor and sensory strength) other (Delirious) Results - Laboratory Findings CBC and BMP: 07/21/17 02:47 07/21/17 02:47 ABG ABG pH 7.38 pH Units (7.32-7.45) 07/20/17 17:57 ABG pCO2 40 mmHg (35-45) 07/20/17 17:57 ABG pO2 372 mmHg (85-104) H 07/20/17 17:57 ABG O2 Saturation 100 % (95-98) H 07/20/17 17:57 PT/INR, D-dimer PT 14.2 Seconds (9.4-12.1) H 07/21/17 02:47 Abnormal lab findings: Abnormal lab results RBC 3.58 M/mcL (4.19-5.50) L 07/21/17 02:47 Hgb 11.8 g/dL (12.9-16.9) L D 07/21/17 02:47 Hct 33.9 % (37.5-50.1) L 07/21/17 02:47 Metamyelocytes % 4.0 % (0) H 07/21/17 02:47 Monocytes # 1.5 K/mcL (0.0-1.3) H 07/20/17 17:43 Poikilocytosis 1+ (Not Present) A 07/20/17 17:43 Anisocytosis 1+ (Not Present) A 07/20/17 17:43 Daniel Cells 1+ (Not Present) A 07/20/17 17:43 PT 14.2 Seconds (9.4-12.1) H 07/21/17 02:47 ABG pO2 372 mmHg (85-104) H 07/20/17 17:57 ABG O2 Saturation 100 % (95-98) H 07/20/17 17:57 BUN 42 mg/dL (8-23) H 07/21/17 02:47 Creatinine 1.40 mg/dL (0.70-1.30) H 07/21/17 02:47 Est GFR (Non-Af Amer) 50 (> 60) L 07/21/17 02:47 BUN/Creatinine Ratio 30 (6-26) H 07/21/17 02:47 Glucose 170 mg/dL (70-105) H 07/21/17 02:47 POC Glucose 100 mg/dL (70-99) H 07/21/17 00:31 Magnesium 1.5 mg/dL (1.6-2.6) L 07/21/17 02:47 Total Bilirubin 1.1 mg/dL (0.3-1.0) H 07/21/17 02:47 Direct Bilirubin 0.3 mg/dL (0.0-0.2) H 07/20/17 17:43 AST 8 Units/L (13-39) L 07/21/17 02:47 Serum Total Protein 5.4 g/dL (6.4-8.9) L 07/21/17 02:47 Albumin 3.2 g/dL (3.5-5.7) L 07/21/17 02:47 Globulin 2.2 g/dL (2.4-3.5) L 07/21/17 02:47 Ur Specific [place] 1.027 (1.010-1.025) H 07/20/17 18:02 - Diagnostic Findings Chest x-ray: report reviewed, image reviewed CT scan - chest: report reviewed, image reviewed - Clinical Findings Intake & Output: Intake & Output 07/20/17 07/20/17 07/21/17 15:59 23:59 07:59 Weight 82.5 kg Consult Discharge Plan - Plan Referrals: Andres Arevalo, FOOD STAND MANAGER [Primary Care Provider] -
--- NOTE | 2017-07-21 07:27 | Palliative - Consult Note ---
<Sergei Romo - Last Filed: 07/21/17 07:47> Date of Encounter: 07/21/17 Time of Encounter: 07:21 - Assessment and Plan (1) Goals of care, counseling/discussion Current Visit: Yes Status: Acute Assessment and plan: Had extensive conversation with patient's medical power of cement mason helper, which is his son Harrison Izquierdo. , Home: he was educated on patient's overall poor prognosis and metastatic cancer. Code status changed to DNR [id number] intubation is okay. Will continue to have goals of care conversations with family and keep them updated on patient's status. (2) Altered mental status Current Visit: Yes Status: Acute Qualifiers: Altered mental status type: disorientation Qualified Code(s): R41.0 - Disorientation, unspecified (3) Pleural effusion Current Visit: Yes Status: Acute Assessment and plan: Chest CT showed right ellie thorax filled with pleural effusion consolidation, presumably malignant with shift of mediastinal sructures, interval progression of metastatic disease (4) Prostate CA Current Visit: Yes Status: Chronic (5) Dyspnea Current Visit: Yes Status: Acute Qualifiers: Dyspnea type: shortness of breath Qualified Code(s): R06.02 - Shortness of breath; R06.00 - Dyspnea, unspecified; R06.01 - Orthopnea (6) Diabetes Current Visit: Yes Status: Chronic Qualifiers: Diabetes mellitus type: type 2 Diabetes mellitus snf insulin use: unspecified ferry terminal agent insulin use status Diabetes mellitus complication status : with unspecified complications Qualified Code(s): E11.8 - Type 2 diabetes mellitus with unspecified complications (7) Osteoarthritis Current Visit: Yes Status: Chronic Qualifiers: Osteoarthritis location: unspecified site Osteoarthritis type: unspecified Qualified Code(s): M19.90 - Unspecified osteoarthritis, unspecified site (8) Hypertension Current Visit: Yes Status: Chronic Qualifiers: Hypertension type: essential hypertension Qualified Code(s): I10 - Essential (primary) hypertension (9) Generalized weakness Current Visit: Yes Status: Acute (10) Metastatic lung cancer (metastasis from lung to other site) Current Visit: Yes Status: Acute Assessment and plan: Lung cancer with metastasis to the right adrenal gland and retroperitoneal, new metastasis to the soft tissues of the interior lower pelvis. management per primary service and oncology. Qualifiers: Laterality: right Qualified Code(s): C34.91 - Malignant neoplasm of unspecified part of right bronchus or lung Palliative-CN HPI - Data of Consult Patient: new to practice Consult date: 07/21/17 Requesting Physician: Harrison Olson Primary Care Provider: Andres Arevalo CNP - Consult Narrative Palliative Care/Comfort Measures: Palliative care Reason for consult: discuss goals of care History of present illness: Mr. Izquierdo is a 71 year old male with past medical history of stage IV prostate cancer, metastatic lung cancer, diabetes, frequent falls, lower extremity ulcers , dyslipidemia, hypertension, prior CVA. He arrived to the ED from home due to altered mental status. Family had called EMS due to altered mental status for 2 days. He had chemotherapy on 07/16/17 and gamma knife radiation to the brain on 06/27/17. He also had a thoracentesis on 07/05 with 1.5 L of fluid taken out at [facility]. she is laying a bet today and unable to answer any questions due to altered mental status. CC: Harrison Olson Past Med Surg Social Fam HX - Past Medical History Medical history: cancer, diabetes, hyperlipidemia, hypertension Psychiatric history: anxiety, depression - Past Surgical History Surgical History: orthopedic, other - Social History Smoking Status: Current every day smoker Smokeless Tobacco Status: No Alcohol use: none Drug use: none Medications and Allergies Albuterol Sulfate [Proair Hfa] 2 puff IH QID 03/25/17 [History] Aspirin Enteric Coated [Aspirin EC] 81 mg PO DAILY 03/25/17 [History] Citalopram Hydrobromide [Celexa] 20 mg PO DAILY 03/25/17 [History] Gabapentin [Neurontin] 300 mg PO TID 03/25/17 [History] Insulin ASPART [Novolog Flexpen] 6 unit SQ AD PRN 03/25/17 [History] Lisinopril [Zestril] 10 mg PO DAILY 03/25/17 [History] Metformin HCl [Glucophage] 1,000 mg PO BID 03/25/17 [History] Tiotropium [Spiriva] 18 mcg IH DAILY 03/25/17 [History] Atorvastatin [Lipitor] 40 mg PO HS 05/08/17 [History] Famotidine [Pepcid] 40 mg PO DAILY 05/08/17 [History] Dexamethasone [Decadron] 4 mg PO BID #36 tab 06/07/17 [Rx] Ondansetron HCl [Zofran] 4 mg PO Q6H PRN #30 tablet 06/07/17 [Rx] Prochlorperazine Maleate [Compazine] 10 mg PO Q6HR PRN #90 tablet 06/07/17 [Rx] Megestrol Acetate [Megace] 800 mg PO DAILY #400 mls 07/08/17 [Rx] Tetrahydrozoline HCl [Eye Drops] 15 ml OP BID #1 bottle 07/08/17 [Rx] Tramadol HCl [Ultram] 50 mg PO QID PRN 07/08/17 [History] 3 Allergy/AdvReac Type Severity Reaction Status Date / Time No Known Allergies Allergy Verified 07/16/17 11:03 ROS unobtainable: due to mental status Palliative Care-Exam - Constitutional Vitals: Temp Pulse Resp BP Pulse Ox 100.1 F H 93 25 95/61 100 07/21/17 06:51 07/21/17 06:51 07/21/17 06:51 07/21/17 06:51 07/21/17 06:51 General appearance: Present: average body habitus, no acute distress - Head Head Exam: Present: atraumatic, normocephalic - Respiratory Additional comments: Diminished breath sounds in right lung - Cardiovascular Cardiovascular exam: Present: RRR, +S1, +S2 - GI/Abdominal Exam GI/Abdominal exam: Present: diminished bowel sounds, distended, tenderness ( Tenderness present in the lower abdomen.). Absent: guarding - Extremities Exam Extremities exam: Present: normal inspection. Absent: pedal edema Internal Medicine - CN: Reslt - Labs CBC & Chem 7: 07/21/17 02:47 07/21/17 02:47 Labs: Short CBC 07/21/17 Range/Units 02:47 WBC 8.6 (4.3-11.1) K/mcL Hgb 11.8 L D (12.9-16.9) g/dL Hct 33.9 L (37.5-50.1) % Plt Count 227 (140-400) K/mcL Neutrophils # 6.4 (1.6-8.9) K/mcL BMP 07/21/17 02:47 Sodium 136 Potassium 4.3 Chloride 104 Carbon Dioxide 25 BUN 42 H Creatinine 1.40 H Glucose 170 H Calcium 8.6 Liver Function 07/21/17 Range/Units 02:47 Total Bilirubin 1.1 H (0.3-1.0) mg/dL AST 8 L (13-39) Units/L ALT 15 (7-52) Units/L Alkaline Phosphatase 76 (34-104) Units/L Albumin 3.2 L (3.5-5.7) g/dL - ABG Interpretation ABG results: ABG ABG pH 7.38 pH Units (7.32-7.45) 07/20/17 17:57 ABG pCO2 40 mmHg (35-45) 07/20/17 17:57 ABG pO2 372 mmHg (85-104) H 07/20/17 17:57 ABG O2 Saturation 100 % (95-98) H 07/20/17 17:57 PT/INR, D-dimer PT 14.2 Seconds (9.4-12.1) H 07/21/17 02:47 Consult Discharge Plan - Plan Referrals: Andres Arevalo CNP [Primary Care Provider] - Palliative Quality Palliative Quality: Screen for Code Status: Yes, Screen for Goals of Care: Yes, Screen for Pain: Yes, Screen for Nausea/Vomitting: Yes <Baljit Holbrook - Last Filed: 07/21/17 08:16> Date of Encounter: 07/21/17 Palliative-CN HPI - Data of Consult Requesting Physician: Harrison Olson Primary Care Provider: Andres Arevalo CNP - Consult Narrative History of present illness: Mr. Izquierdo is a 71 year old male CC: Harrison Olson Palliative Care-Exam - Constitutional Vitals: Temp Pulse Resp BP Pulse Ox 100.1 F H 93 25 95/61 100 07/21/17 06:51 07/21/17 06:51 07/21/17 06:51 07/21/17 06:51 07/21/17 06:51 Internal Medicine - CN: Reslt - Labs CBC & Chem 7: 07/21/17 02:47 07/21/17 02:47 Labs: Short CBC 07/21/17 Range/Units 02:47 WBC 8.6 (4.3-11.1) K/mcL Hgb 11.8 L D (12.9-16.9) g/dL Hct 33.9 L (37.5-50.1) % Plt Count 227 (140-400) K/mcL Neutrophils # 6.4 (1.6-8.9) K/mcL BMP 07/21/17 02:47 Sodium 136 Potassium 4.3 Chloride 104 Carbon Dioxide 25 BUN 42 H Creatinine 1.40 H Glucose 170 H Calcium 8.6 Liver Function 07/21/17 Range/Units 02:47 Total Bilirubin 1.1 H (0.3-1.0) mg/dL AST 8 L (13-39) Units/L ALT 15 (7-52) Units/L Alkaline Phosphatase 76 (34-104) Units/L Albumin 3.2 L (3.5-5.7) g/dL - ABG Interpretation ABG results: ABG ABG pH 7.38 pH Units (7.32-7.45) 07/20/17 17:57 ABG pCO2 40 mmHg (35-45) 07/20/17 17:57 ABG pO2 372 mmHg (85-104) H 07/20/17 17:57 ABG O2 Saturation 100 % (95-98) H 07/20/17 17:57 PT/INR, D-dimer PT 14.2 Seconds (9.4-12.1) H 07/21/17 02:47 - Attending Attestation I examined this patient and my medical decision-making was reviewed with the Resident Physician. I agree with the documented findings, disposition and treatment plan as described except to the extent set forth below. Palliative Quality Code Status: 07/21/17 08:03 DNR [Resuscitation Status: Active] [RES] Routine Comment: Resuscitation Status: DNR-Comfort Care-Arrest
[2017-07-21] MEDS: Gabapentin 300 MG CAPSULE PO SCH ×3 (08:22→17:49)
[2017-07-21] MEDS: Aspirin Enteric Coated 81 MG Tablet PO SCH (08:22)
[2017-07-21] MEDS: Acetaminophen 325 MG TABLET PO PRN (08:23)
[2017-07-21] MEDS: Insulin LISPRO 300 UNITS/3 ML VIAL SQ SCH ×3 (08:23→17:49)
[2017-07-21] MEDS: Megestrol Acetate 400 MG/10 ML UDC PO SCH (08:23)
[2017-07-21] MEDS: Famotidine 20 MG TABLET PO SCH (08:23)
[2017-07-21 08:29] LABS: Estimated Average Glucose 189 mg/dl; Hemoglobin A1C 8.2 %
[2017-07-21] MEDS ORDERED: Tiotropium 18 MCG inhalation IH SCH (10:00)
[2017-07-21] MEDS: Ipratropium/Albuterol Neb 3 ML IH SCH ×3 (10:14→23:12)
--- NOTE | 2017-07-21 17:41 | Internal Med Progress Note ---
Date of Encounter: 07/21/17 Time of Encounter: 17:35 - Time Spent With Patient - Assessment and plan (1) Altered mental status Current Visit: Yes Status: Acute Assessment and plan: - Altered mental status per family possibly secondary to hypoxia versus metabolic - During time of interview, patient is alert and oriented 0 - Resting calmly as this time, will treat underlying illnesses as below. 07/21: Family at bedside. minimal improvement. Overall prognosis poor. Qualifiers: Altered mental status type: disorientation Qualified Code(s): R41.0 - Disorientation, unspecified (2) Pleural effusion Current Visit: Yes Status: Acute Assessment and plan: - Profusion demonstrated on both chest x-ray and chest CT performed emergency department - Status post thoracentesis with 2.5 L of fluid removed, serosanguineous in appearance - First episode of pleural effusion - Etiology is likely secondary to known malignancy. - Patient currently tolerating 2 L of oxygen via nasal cannula with saturation in the high 90s Plan - Status post thoracentesis with good oxygenation at this time - We will send fluid for analysis - Continue monitor for respiratory status (3) Metastatic lung cancer (metastasis from lung to other site) Current Visit: Yes Status: Acute Assessment and plan: Known history of right lung cancer, stage IV - Also with Dr. Lindsay at [facility] - Metastatic disease to right pelvic sidewall, bladder, right parietal region - On chemotherapy with last dose of taxotere on 07/16/17, [employer] - Likely contributing to complaints of weakness with possible altered mental status from drug side effects - We will continue treatment as outpatient 07/21: Pt seen by palliative care, refer to consult. Code status changed to DNR CCA and family stated to palliative that short term intubation ok. Over all prognosis poor. Qualifiers: Laterality: right Qualified Code(s): C34.91 - Malignant neoplasm of unspecified part of right bronchus or lung (4) Prostate CA Current Visit: Yes Status: Chronic Assessment and plan: Known history of prostate cancer, demonstrated on abdominal CT Continue management as outpatient 07/21: Pt having some urinary retention today do [place] cath placed. Urine turbid and sent f or analysis. (5) Dyspnea Current Visit: Yes Status: Acute Assessment and plan: Secondary to pleural effusion as above Supplemental oxygen as needed Treat underlying illnesses as above Qualifiers: Dyspnea type: shortness of breath Qualified Code(s): R06.02 - Shortness of breath; R06.00 - Dyspnea, unspecified; R06.01 - Orthopnea (6) Diabetes Current Visit: Yes Status: Chronic Assessment and plan: - Type II DM - No A1c on record - BS in ED of 237 - SSI and A1c with morning labs. Qualifiers: Diabetes mellitus type: type 2 Diabetes mellitus [facility] insulin use: unspecified machine stemmer insulin use status Diabetes mellitus complication status : with unspecified complications Qualified Code(s): E11.8 - Type 2 diabetes mellitus with unspecified complications (7) Osteoarthritis Current Visit: Yes Status: Chronic Assessment and plan: - Pain management as needed. Qualifiers: Osteoarthritis location: unspecified site Osteoarthritis type: unspecified Qualified Code(s): M19.90 - Unspecified osteoarthritis, unspecified site (8) Hypertension Current Visit: Yes Status: Chronic Assessment and plan: -Borderline hypotension emergency room following thoracentesis - Currently receiving albumin infusions - We will continue to monitor closely and hold home medications as needed Qualifiers: Hypertension type: essential hypertension Qualified Code(s): I10 - Essential (primary) hypertension (9) Generalized weakness Current Visit: Yes Status: Acute Assessment and plan: - Likely related to known metastatic cancer, deconditioning, inadequate nutrition - Continue albumin, treat underlying illnesses - Reportedly lives at home and able to complete ADLs by himself - Would likely benefit from PT/OT while inpatient (10) Goals of care, counseling/discussion Current Visit: Yes Status: Acute Assessment and plan: Per ED documentation and they are discussion with patient's family, was full CODE STATUS, however family changed that to DNR CCa after discussin pt current status with palliative care service. (11) DVT prophylaxis Current Visit: Yes Status: Acute Assessment and plan: Lovenox 40 mg Qday - Time Spent With Patient Total time spent is greater than 50% in coordination of care (as documented) at patient's floor/unit and/or counseling patient: less than 15 minutes less than 15 minutes - Subjective Interval history: Son and daughter in law at bed side. Pt resting. Denies any pain at this time. Positive SOb but tolerating nasal cannula oxygen - Constitutional Vitals: Temp Pulse Resp BP Pulse Ox 99.5 F 88 15 90/34 94 07/21/17 16:58 07/21/17 16:58 04/08/18 16:58 07/21/17 17:33 07/21/17 16:58 - Head Head exam: Present: atraumatic, normocephalic - Eye Eye exam: Present: PERRL, conjuntiva pink, sclera anicteric Pupils: Present: PERRL - Neck Neck exam general surgery: Present: supple, trachea midline. Absent: lymphadenopathy - Respiratory Respiratory exam: Present: rhonchi. Absent: accessory muscle use, CTAB, rales, wheezes Additional comments: scattered rhonci B/L - Cardiovascular Cardiovascular exam: Present: RRR, +S1, +S2. Absent: diastolic murmur, gallop, rubs, systolic murmur - GI/Abdominal GI/Abdominal exam: Present: normal bowel sounds, soft, no peritoneal signs. Absent: distended, tenderness - Extremities Exam Extremities exam: Present: warm, radial pulses palpable and symmetrical. Absent : calf tenderness, cyanotic, pedal edema - Psychiatric Psychiatric exam: Present: flat affect - Skin Skin exam: Present: dry, intact Internal Medicine: Result - Labs CBC & Chem 7: 07/21/17 02:47 07/21/17 02:47 Labs: Short CBC 07/21/17 Range/Units 02:47 WBC 8.6 (4.3-11.1) K/mcL Hgb 11.8 L D (12.9-16.9) g/dL Hct 33.9 L (37.5-50.1) % Plt Count 227 (140-400) K/mcL Neutrophils # 6.4 (1.6-8.9) K/mcL BMP 07/21/17 02:47 Sodium 136 Potassium 4.3 Chloride 104 Carbon Dioxide 25 BUN 42 H Creatinine 1.40 H Glucose 170 H Calcium 8.6 Liver Function 07/21/17 Range/Units 02:47 Total Bilirubin 1.1 H (0.3-1.0) mg/dL AST 8 L (13-39) Units/L ALT 15 (7-52) Units/L Alkaline Phosphatase 76 (34-104) Units/L Albumin 3.2 L (3.5-5.7) g/dL - ABG Interpretation ABG results: ABG ABG pH 7.38 pH Units (7.32-7.45) 07/20/17 17:57 ABG pCO2 40 mmHg (35-45) 07/20/17 17:57 ABG pO2 372 mmHg (85-104) H 07/20/17 17:57 ABG O2 Saturation 100 % (95-98) H 07/20/17 17:57 PT/INR, D-dimer PT 14.2 Seconds (9.4-12.1) H 07/21/17 02:47 Consult Discharge Plan - Plan Referrals: Andres Arevalo, SENIOR INSPECTOR [Primary Care Provider] -
[2017-07-22] MEDS ORDERED: Piperacillin/Tazobactam 3.375 GM in 0.9 % Sodium Chloride Mini Bag 100 ML IVPB SCH (04:00)
[2017-07-22] MEDS: Ipratropium/Albuterol Neb 3 ML IH SCH ×4 (04:25→23:31)
[2017-07-22] MEDS: *HR* Enoxaparin 40 MG/0.4 ML SYRINGE SQ SCH (06:26)
[2017-07-22] MEDS: Piperacillin/Tazobactam 3.375 GM in 0.9 % Sodium Chloride Mini Bag 100 ML IVPB SCH ×3 (06:26→20:53)
[2017-07-22] MEDS: Insulin LISPRO 300 UNITS/3 ML VIAL SQ SCH ×3 (08:32→16:56)
--- NOTE | 2017-07-22 08:33 | Pulmonology Progress Note ---
Date of Encounter: 07/22/17 Time of Encounter: 08:00 Assessment and Plan (1) Pleural effusion Current Visit: Yes Status: Chronic Patient is not in any acute distress at this time and he might benefit from Pleurx pleural catheter which can even be done as outpatient. Patient has some mental status change which is difficult to explain to him the procedure and power of activities manager when his available will discuss procedure if they agree to have it done. Please call for any questions. (2) Altered mental status Current Visit: Yes Status: Acute There is some improvement patient is oriented to place and partially to time. Qualifiers: Altered mental status type: disorientation Qualified Code(s): R41.0 - Disorientation, unspecified (3) Metastatic lung cancer (metastasis from lung to other site) Current Visit: Yes Status: Chronic Qualifiers: Laterality: right Qualified Code(s): C34.91 - Malignant neoplasm of unspecified part of right bronchus or lung Subjective Principal diagnosis: Pleural effusion and altered mental status Interval history: Patient denies any complain and no respiratory distress Objective PUL Vital signs: Last Vital Signs Temp 97.5 F L 07/22/17 08:27 Pulse 93 07/22/17 08:27 Resp 20 07/22/17 08:27 BP 93/55 07/22/17 08:27 Pulse Ox 98 07/22/17 06:28 General appearance: no acute distress Eyes: nonicteric Neck: supple Effort: normal Auscultation: left: clear, right: diminished breath sounds Percussion: left: not dull, right: dull Cardiovascular: regular rate and rhythm Gastrointestinal: normoactive bowel sounds Extremities: no cyanosis non-focal exam Results - Laboratory Findings CBC and BMP: 07/21/17 02:47 07/21/17 02:47 ABG ABG pH 7.38 pH Units (7.32-7.45) 07/20/17 17:57 ABG pCO2 40 mmHg (35-45) 07/20/17 17:57 ABG pO2 372 mmHg (85-104) H 07/20/17 17:57 ABG O2 Saturation 100 % (95-98) H 07/20/17 17:57 PT/INR, D-dimer PT 14.2 Seconds (9.4-12.1) H 07/21/17 02:47 Abnormal lab findings: Abnormal lab results RBC 3.58 M/mcL (4.19-5.50) L 07/21/17 02:47 Hgb 11.8 g/dL (12.9-16.9) L D 07/21/17 02:47 Hct 33.9 % (37.5-50.1) L 07/21/17 02:47 Metamyelocytes % 4.0 % (0) H 07/21/17 02:47 Monocytes # 1.5 K/mcL (0.0-1.3) H 07/20/17 17:43 Poikilocytosis 1+ (Not Present) A 07/20/17 17:43 Anisocytosis 1+ (Not Present) A 07/20/17 17:43 [place] Cells 1+ (Not Present) A 07/20/17 17:43 PT 14.2 Seconds (9.4-12.1) H 07/21/17 02:47 ABG pO2 372 mmHg (85-104) H 07/20/17 17:57 ABG O2 Saturation 100 % (95-98) H 07/20/17 17:57 BUN 42 mg/dL (8-23) H 07/21/17 02:47 Creatinine 1.40 mg/dL (0.70-1.30) H 07/21/17 02:47 Est GFR (Non-Af Amer) 50 (> 60) L 07/21/17 02:47 BUN/Creatinine Ratio 30 (6-26) H 07/21/17 02:47 Glucose 170 mg/dL (70-105) H 07/21/17 02:47 POC Glucose 211 mg/dL (70-99) H 07/21/17 20:29 Hemoglobin A1c 8.2 % (-5.6) H 07/20/17 17:43 Magnesium 1.5 mg/dL (1.6-2.6) L 07/21/17 02:47 Total Bilirubin 1.1 mg/dL (0.3-1.0) H 07/21/17 02:47 Direct Bilirubin 0.3 mg/dL (0.0-0.2) H 07/20/17 17:43 AST 8 Units/L (13-39) L 07/21/17 02:47 Serum Total Protein 5.4 g/dL (6.4-8.9) L 07/21/17 02:47 Albumin 3.2 g/dL (3.5-5.7) L 07/21/17 02:47 Globulin 2.2 g/dL (2.4-3.5) L 07/21/17 02:47 Ur Specific [place] 1.027 (1.010-1.025) H 07/20/17 18:02 - Microbiology Findings Microbiology Findings: Microbiology, Last 48 Hours 07/21/17 12:46 Legionella Antigen - Final Urine,Clean Catch Streptococcus pneumoniae Antigen (M - Final - Diagnostic Findings Chest x-ray: report reviewed, image reviewed - Clinical Findings Intake & Output: Intake & Output 07/21/17 07/22/17 07/22/17 23:59 07:59 15:59 Intake Total 0 / 0 Output Total 450 / 450 400 / 400 Balance -450 / -450 -400 / -400 Weight 82.7 kg - VTE Documentation of Mechanical Device: Intermittent pneumatic compression device Consult Discharge Plan - Plan Referrals: Andres Arevalo, [employer] MARKET[employer] ANALYST [Primary Care Provider] -
--- NOTE | 2017-07-22 09:18 | Palliative Progress Note ---
Date of Encounter: 07/22/17 Time of Encounter: 08:45 - Assessment and plan (1) Prostate CA Current Visit: Yes Status: Chronic Assessment and plan: Patient of Dr. Mike. Continue to follow treatment plan per [facility]. (2) Altered mental status Current Visit: Yes Status: Acute Assessment and plan: Patient continues to be Alert to person only. Unsure of patient's baseline, no family present. Continue to treat underlying infection with IV antibiotics, will convene with family to evaluation for patient's normal mentation baseline. Qualifiers: Altered mental status type: disorientation Qualified Code(s): R41.0 - Disorientation, unspecified (3) Dyspnea Current Visit: Yes Status: Acute Assessment and plan: Patient's Oxygen 98% on 2L this am. Not wearing oxygen during assessment, reapplied and reinforced to patient the need for continued oxygen therapy. Continue Oxygen and Duonebs. Qualifiers: Dyspnea type: shortness of breath Qualified Code(s): R06.02 - Shortness of breath; R06.00 - Dyspnea, unspecified; R06.01 - Orthopnea (4) Pleural effusion Current Visit: Yes Status: Chronic Assessment and plan: Pulmonary following. Per Pulmonary note patient is a candidate for Pleural drain outpatient, family to be notified. (5) Generalized weakness Current Visit: Yes Status: Acute Assessment and plan: Patient has equal strength of arms and legs during assessment. Patient brought in for a fall. Will order PT/OT for consultation for recommendations at discharge. (6) Metastatic lung cancer (metastasis from lung to other site) Current Visit: Yes Status: Chronic Qualifiers: Laterality: right Qualified Code(s): C34.91 - Malignant neoplasm of unspecified part of right bronchus or lung (7) Goals of care, counseling/discussion Current Visit: Yes Status: Acute Assessment and plan: No family present at bedside. Will attempt to meet with them later today to evaluate for continue plans of care and discharge planning conversation. SW following. (8) Sepsis Current Visit: Yes Status: Acute Assessment and plan: Continue IV Zosyn to treat infection. WBC improved to 8.6. Vital signs stable. Qualifiers: Sepsis type: sepsis due to unspecified organism Qualified Code(s): A41.9 - Sepsis, unspecified organism (9) Dysphagia Current Visit: Yes Status: Acute Assessment and plan: Per notes and MAR, patient is having difficulty swallowing/choking with PO intake. Patient has been made NPO. Will order ST to evaluate and treat. Qualifiers: Dysphagia type: unspecified Qualified Code(s): R13.10 - Dysphagia, unspecified - Time Spent With Patient Total time spent is greater than 50% in coordination of care (as documented) at patient's floor/unit and/or counseling patient: - Subjective Interval history: Patient resting quietly in bed with no s/s of acute distress noted; no family at bedside. Patient easily awakens when spoken to. Patient is alert to person, disoriented to time at place. Patient reports being in "this building to pick someone up and leaving." Denies pain and anxiety during time of assessment. Reports some nausea, but feels it would improve "if you people would just let me eat, your starving me." Explained risk of aspiration as patient had difficulty swallowing yesterday evening, needs reinforcement. Reports feeling dry, oral mucous membrane quite dry. Patient has taken 0 doses of Zofran or [place] in the last 24 hours; 1 dose of Tylenol. Upon assessment, patient noted to have removed oxygen nasal cannula, assisted with reapplication and encouraged patient to leave in nose. Patient able to follow simple commands and assist some with turning. Brownish red urine noted to be in catheter bag. - Constitutional Vitals: Abnormal lab results RBC 3.58 M/mcL (4.19-5.50) L 07/21/17 02:47 Hgb 11.8 g/dL (12.9-16.9) L D 07/21/17 02:47 Hct 33.9 % (37.5-50.1) L 07/21/17 02:47 Metamyelocytes % 4.0 % (0) H 07/21/17 02:47 Monocytes # 1.5 K/mcL (0.0-1.3) H 07/20/17 17:43 Poikilocytosis 1+ (Not Present) A 07/20/17 17:43 Anisocytosis 1+ (Not Present) A 07/20/17 17:43 [place] Cells 1+ (Not Present) A 07/20/17 17:43 PT 14.2 Seconds (9.4-12.1) H 07/21/17 02:47 ABG pO2 372 mmHg (85-104) H 07/20/17 17:57 ABG O2 Saturation 100 % (95-98) H 07/20/17 17:57 BUN 42 mg/dL (8-23) H 07/21/17 02:47 Creatinine 1.40 mg/dL (0.70-1.30) H 07/21/17 02:47 Est GFR (Non-Af Amer) 50 (> 60) L 07/21/17 02:47 BUN/Creatinine Ratio 30 (6-26) H 07/21/17 02:47 Glucose 170 mg/dL (70-105) H 07/21/17 02:47 POC Glucose 211 mg/dL (70-99) H 07/21/17 20:29 Hemoglobin A1c 8.2 % (-5.6) H 07/20/17 17:43 Magnesium 1.5 mg/dL (1.6-2.6) L 07/21/17 02:47 Total Bilirubin 1.1 mg/dL (0.3-1.0) H 07/21/17 02:47 Direct Bilirubin 0.3 mg/dL (0.0-0.2) H 07/20/17 17:43 AST 8 Units/L (13-39) L 07/21/17 02:47 Serum Total Protein 5.4 g/dL (6.4-8.9) L 07/21/17 02:47 Albumin 3.2 g/dL (3.5-5.7) L 07/21/17 02:47 Globulin 2.2 g/dL (2.4-3.5) L 07/21/17 02:47 Ur Specific [place] 1.027 (1.010-1.025) H 07/20/17 18:02 General appearance: Present: cooperative, no acute distress - Head Head exam: Present: atraumatic, normal inspection - Eye Eye exam: Present: normal appearance, PERRL, conjuntiva pink. Absent: nystagmus , periorbital swelling, periorbital tenderness Pupils: Present: normal accommodation, PERRL - Expanded Eye Exam Eyelids: bilateral: normal inspection Pupils: reactive: Bilateral, regular, round: Bilateral - ENT ENT exam: Present: mucous membranes dry, normal external ear exam. Absent: normal oropharynx Additional comments: Oral mucosa is dry with dryed food noted to tongue. - Expanded ENT Exam Ear exam: Absent: external canal tenderness Mouth exam: Present: dry mucosa, normal external inspection. Absent: drooling, tongue normal Throat exam: Present: normal inspection - Neck Neck exam: Present: full ROM, normal inspection. Absent: tenderness - Respiratory Respiratory exam: Present: CTAB, wheezes. Absent: accessory muscle use Additional comments: to left lung - Expanded Respiratory Exam Location: wheezes: Right, Upper, Lower - Cardiovascular Cardiovascular exam: Present: +S1, +S2. Absent: irregular rhythm - GI/Abdominal GI/Abdominal exam: Present: hyperactive bowel sounds, soft. Absent: guarding, tenderness - Rectal Rectal exam: Present: deferred - Extremities Exam Extremities exam: Present: full ROM, normal inspection. Absent: calf tenderness , pedal edema - Expanded Lower Extremity Exam Lower leg exam: Present: abrasion, full ROM. Absent: swelling, tenderness Ankle exam: Absent: swelling - Back Exam Back exam: Present: normal inspection. Absent: tenderness - Neurological Exam Neurological exam: Present: alert, altered, strengths equal and symetr throughout. Absent: facial droop - Psychiatric Psychiatric exam: Present: normal affect, normal mood - Skin Skin exam: Present: dry, warm Palliative Quality Palliative Quality: Screen for Code Status: Yes, Screen for Goals of Care: Yes, Screen for Pain: Yes, If Pain Regimen Started, Initiate Bowel Regimen: NA, Screen for Nausea/Vomitting: Yes Code Status: 07/21/17 08:03 DNR [Resuscitation Status: Active] [RES] Routine Comment: Resuscitation Status: DNR-Comfort Care-Arrest - Labs CBC & Chem 7: 07/21/17 02:47 07/21/17 02:47 Labs: Laboratory Results - last 24 hr 07/21/17 07/21/17 07/21/17 06:56 11:59 17:07 POC Glucose 138 H 211 H 210 H 07/21/17 20:29 POC Glucose 211 H - ABG Interpretation ABG results: ABG ABG pH 7.38 pH Units (7.32-7.45) 07/20/17 17:57 ABG pCO2 40 mmHg (35-45) 07/20/17 17:57 ABG pO2 372 mmHg (85-104) H 07/20/17 17:57 ABG O2 Saturation 100 % (95-98) H 07/20/17 17:57 PT/INR, D-dimer PT 14.2 Seconds (9.4-12.1) H 07/21/17 02:47 Consult Discharge Plan - Plan Referrals: Andres Arevalo CNP [Primary Care Provider] - 07/30/17 11:00 am
[2017-07-22] MEDS: Gabapentin 300 MG CAPSULE PO SCH ×3 (09:53→20:52)
[2017-07-22] MEDS: Aspirin Enteric Coated 81 MG Tablet PO SCH (09:53)
[2017-07-22] MEDS: Famotidine 20 MG TABLET PO SCH (09:54)
[2017-07-22] MEDS: Megestrol Acetate 400 MG/10 ML UDC PO SCH (09:58)
[2017-07-22] MEDS: Nicotine 21 MG PATCH.TD24 TD SCH (09:59)
--- NOTE | 2017-07-22 16:18 | Internal Med Progress Note ---
Date of Encounter: 07/22/17 Time of Encounter: 09:40 - Assessment and plan (1) Pleural effusion Current Visit: Yes Status: Chronic Assessment and plan: Massive right-sided pleural effusion status post thoracentesis in the emergency room with 1 L of serosanguineous fluid aspiration. Fluid analysis was not sent , but effusion likely thought to be malignant. Pulmonology was consulted, patient may require Pleurx catheter in the future for recurrent pleural effusion with lung malignancy. Continue supportive care and supplemental oxygen. (2) Pneumonia Current Visit: Yes Status: Suspected Assessment and plan: Imaging not clear but antibiotics recommended per Pulmonology for suspected aspiration; Continue IV Zosyn. 2 sets of blood cultures remain negative. Respiratory infection panel, urine Legionella and strep pneumoniae antigens negative. Continue supportive care and supplemental oxygen. Speech Therapy was consulted, bedside swallow evaluation completed, patient cleared for soft diet and thin liquids. Qualifiers: Pneumonia type: aspiration pneumonia Aspiration pneumonia type: unspecified Laterality: right Lung location: lower lobe of lung Qualified Code(s): J69.0 - Pneumonitis due to inhalation of food and vomit (3) Sepsis Current Visit: Yes Status: Acute Assessment and plan: Presented with leukocytosis and tachycardia, likely due to pneumonia. Plan as above. Qualifiers: Sepsis type: sepsis due to unspecified organism Qualified Code(s): A41.9 - Sepsis, unspecified organism (4) Dysphagia Current Visit: Yes Status: Resolved Assessment and plan: Mental status improved, speech therapy evaluation as above. Qualifiers: Dysphagia type: unspecified Qualified Code(s): R13.10 - Dysphagia, unspecified (5) Generalized weakness Current Visit: Yes Status: Chronic Assessment and plan: Likely due to underlying medical problems. Physical and occupational therapy evaluation requested. (6) Goals of care, counseling/discussion Current Visit: Yes Status: Chronic Assessment and plan: Patient has DPOA-his son. Discussed with patient's son at bedside, confirmed patient's CODE STATUS as DNR comfort care arrest, patient is agreeable to short- term intubation. (7) Diabetes Current Visit: Yes Status: Chronic Assessment and plan: Blood sugars noted to be somewhat elevated. Continue Accu-Chek blood glucose monitoring with sliding scale insulin. Diabetic diet. 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 We will hold lisinopril for now. Qualifiers: Hypertension type: essential hypertension Qualified Code(s): I10 - Essential (primary) hypertension (9) Metastatic lung cancer (metastasis from lung to other site) Current Visit: Yes Status: Chronic Assessment and plan: Follows with oncology as outpatient. Recently started on chemotherapy per his son. Continue outpatient follow-up. Qualifiers: Laterality: right Qualified Code(s): C34.91 - Malignant neoplasm of unspecified part of right bronchus or lung (10) Prostate CA Current Visit: Yes Status: Chronic - Time Spent With Patient Total time spent is greater than 50% in coordination of care (as documented) at patient's floor/unit and/or counseling patient: - Subjective Interval history: Unable to provide any history; he answers his name but does not know where he is or why he is here; denies chest pain, dyspnea, vomiting, diarrhea, abdominal pain; - Constitutional Vitals: Temp Pulse Resp BP Pulse Ox 98.9 F 86 18 93/55 96 07/22/17 11:39 07/22/17 11:39 07/22/17 11:39 07/22/17 08:27 07/22/17 10:04 General appearance: Present: A&O X 3, answers questions appropriately - Respiratory Respiratory exam: Present: decreased breath sounds (at right base), CTAB. Absent: accessory muscle use, rales, rhonchi, wheezes - Cardiovascular Cardiovascular exam: Present: RRR, +S1, +S2. Absent: diastolic murmur, gallop, rubs, systolic murmur - GI/Abdominal GI/Abdominal exam: Present: normal bowel sounds, soft, no peritoneal signs. Absent: distended, tenderness - Extremities Exam Extremities exam: Present: warm, radial pulses palpable and symmetrical. Absent : calf tenderness, cyanotic, pedal edema - Neurological Exam Neurological exam: Present: altered, CN II-XII intact, no focal deficits. Absent: pronater drift, facial droop, speech deficit Internal Medicine: Result - Labs CBC & Chem 7: 07/21/17 02:47 07/21/17 02:47 - ABG Interpretation ABG results: ABG ABG pH 7.38 pH Units (7.32-7.45) 07/20/17 17:57 ABG pCO2 40 mmHg (35-45) 07/20/17 17:57 ABG pO2 372 mmHg (85-104) H 07/20/17 17:57 ABG O2 Saturation 100 % (95-98) H 07/20/17 17:57 PT/INR, D-dimer PT 14.2 Seconds (9.4-12.1) H 07/21/17 02:47 - VTE Documentation of Mechanical Device: Intermittent pneumatic compression device Consult Discharge Plan - Plan Referrals: Andres Arevalo CNP [Primary Care Provider] - 07/30/17 11:00 am
[2017-07-22] MEDS ORDERED: 0.9 % Sodium Chloride 250 ML IVC PRN (17:08)
[2017-07-23] MEDS: Ipratropium/Albuterol Neb 3 ML IH SCH ×4 (04:13→22:22)
[2017-07-23] MEDS: *HR* Enoxaparin 40 MG/0.4 ML SYRINGE SQ SCH (05:18)
[2017-07-23] MEDS: Piperacillin/Tazobactam 3.375 GM in 0.9 % Sodium Chloride Mini Bag 100 ML IVPB SCH ×3 (05:18→20:41)
[2017-07-23 06:06] LABS: Eosinophils % 0.5 %; Hematocrit 32.4 % (37.5-50.1); Hemoglobin 10.9 g/dL (12.9-16.9); Immature Granulocytes % 8.4 % (0-4); Immature Platelets 6.3 % (1.1-6.1); Lymphocytes # 0.6 K/mcL (0.6-4.6); Lymphocytes % 15.2 %; Mean Corpuscular HGB Conc 33.6 g/dL (31.6-35.5); Mean Corpuscular Hemoglobin 32.3 pg (28.0-33.3); Mean Corpuscular Volume 96.1 fL (83.0-100.0); Mean Platelet Volume 11.7 fL (9.4-12.4); Monocytes # 0.3 K/mcL (0.0-1.3); Monocytes % 7.4 %; Platelet Count 201 K/mcL (140-400); Red Blood Count 3.37 M/mcL (4.19-5.50); Red Cell Distribution Width 14.3 % (11.5-14.5); Segmented Neutrophils % 67.5 %
[2017-07-23 06:11] LABS: Neutrophils # 2.6 K/mcL (1.6-8.9)
[2017-07-23 06:50] LABS: Large Platelets Present (Not Present); Platelet Estimate Normal (Normal); Reactive Lymphocytes Present (Not Present); Toxic Granulation Present (Not Present)
[2017-07-23 06:51] LABS: BUN/Creatinine Ratio 41 (6-26); Blood Urea Nitrogen 43 mg/dL (8-23); Calcium 8.5 mg/dL (8.6-10.3); Carbon Dioxide 25 mEq/L (23-29); Chloride 112 mEq/L (98-107); Glucose 195 mg/dL (70-105); Magnesium 2.2 mg/dL (1.6-2.6); Osmolality,Calculated 316 (280-300); Potassium 3.9 mEq/L (3.5-5.1); Sodium 145 mEq/L (136-145); eGFR For African Americans > 60 (> 60); eGFR For Non-African Americans > 60 (> 60)
[2017-07-23] MEDS: Insulin LISPRO 300 UNITS/3 ML VIAL SQ SCH ×3 (07:45→16:54)
[2017-07-23] MEDS: Megestrol Acetate 400 MG/10 ML UDC PO SCH (08:53)
[2017-07-23] MEDS: Gabapentin 300 MG CAPSULE PO SCH ×2 (08:54→20:41)
[2017-07-23] MEDS: Nicotine 21 MG PATCH.TD24 TD SCH (08:54)
[2017-07-23] MEDS: Aspirin Enteric Coated 81 MG Tablet PO SCH (08:54)
[2017-07-23] MEDS: Famotidine 20 MG TABLET PO SCH (08:54)
[2017-07-23] MEDS: Acetaminophen 325 MG TABLET PO PRN (10:14)
--- NOTE | 2017-07-23 10:46 | Palliative Progress Note ---
Date of Encounter: 07/23/17 Time of Encounter: 10:00 - Assessment and plan (1) Prostate CA Current Visit: Yes Status: Chronic Assessment and plan: Go receiving chemotherapy per oncology, patient and son his medical power of trust and estates attorney continue to receive chemotherapy for his long as it is available to them. (2) Altered mental status Current Visit: Yes Status: Acute Assessment and plan: This appears to be clearing very well. Patient is awake and alert this morning has no recall of having seen me on Saturday, however this is not surprising. He is much improved since Saturday Qualifiers: Altered mental status type: disorientation Qualified Code(s): R41.0 - Disorientation, unspecified (3) Dyspnea Current Visit: Yes Status: Acute Assessment and plan: Much improved Qualifiers: Dyspnea type: shortness of breath Qualified Code(s): R06.02 - Shortness of breath; R06.00 - Dyspnea, unspecified; R06.01 - Orthopnea (4) Metastatic lung cancer (metastasis from lung to other site) Current Visit: Yes Status: Chronic Qualifiers: Laterality: right Qualified Code(s): C34.91 - Malignant neoplasm of unspecified part of right bronchus or lung (5) Goals of care, counseling/discussion Current Visit: Yes Status: Chronic Assessment and plan: CODE STATUS has been established and confirmed by the patient and the patient's son who is his medical power of trust and estates attorney is DNR CCA the patient is okay. Goals are to go out and get rehabilitation and then return home and continue getting chemotherapy. He does understand Cynthia as does his family that since the chemotherapy appears to be palliative in nature hospice is available whenever they wish to have it. - Time Spent With Patient Total time spent is greater than 50% in coordination of care (as documented) at patient's floor/unit and/or counseling patient: - Subjective Interval history: Awake alert and eating breakfast without any difficulty. States his breathing is better and no pain. He has no recall of having seen me or my team over the weekend. - Constitutional Vitals: Abnormal lab results WBC 3.9 K/mcL (4.3-11.1) L D 07/23/17 05:23 RBC 3.37 M/mcL (4.19-5.50) L 07/23/17 05:23 Hgb 10.9 g/dL (12.9-16.9) L 07/23/17 05:23 Hct 32.4 % (37.5-50.1) L 07/23/17 05:23 Immature Gran % 8.4 % (0-4) H 07/23/17 05:23 Metamyelocytes % 4.0 % (0) H 07/21/17 02:47 Reactive Lymphocytes Present (Not Present) A 07/23/17 05:23 Toxic Granulation Present (Not Present) A 07/23/17 05:23 Large Platelets Present (Not Present) A 07/23/17 05:23 Immature Plt Fraction 6.3 % (1.1-6.1) H 07/23/17 05:23 Poikilocytosis 1+ (Not Present) A 07/20/17 17:43 Anisocytosis 1+ (Not Present) A 07/20/17 17:43 Daniel Cells 1+ (Not Present) A 07/20/17 17:43 PT 14.2 Seconds (9.4-12.1) H 07/21/17 02:47 ABG pO2 372 mmHg (85-104) H 07/20/17 17:57 ABG O2 Saturation 100 % (95-98) H 07/20/17 17:57 Chloride 112 mEq/L (98-107) H 07/23/17 05:20 BUN 43 mg/dL (8-23) H 07/23/17 05:20 BUN/Creatinine Ratio 41 (6-26) H 07/23/17 05:20 Glucose 195 mg/dL (70-105) H 07/23/17 05:20 POC Glucose 204 mg/dL (70-99) H 07/23/17 07:29 Hemoglobin A1c 8.2 % (-5.6) H 07/20/17 17:43 Calculated Osmolality 316 (280-300) H 07/23/17 05:20 Calcium 8.5 mg/dL (8.6-10.3) L 07/23/17 05:20 Total Bilirubin 1.1 mg/dL (0.3-1.0) H 07/21/17 02:47 Direct Bilirubin 0.3 mg/dL (0.0-0.2) H 07/20/17 17:43 AST 8 Units/L (13-39) L 07/21/17 02:47 Serum Total Protein 5.4 g/dL (6.4-8.9) L 07/21/17 02:47 Albumin 3.2 g/dL (3.5-5.7) L 07/21/17 02:47 Globulin 2.2 g/dL (2.4-3.5) L 07/21/17 02:47 Ur Specific [place] 1.027 (1.010-1.025) H 07/20/17 18:02 General appearance: Present: no acute distress - Head Head exam: Present: atraumatic, normal inspection - ENT ENT exam: Present: mucous membranes moist - Respiratory Respiratory exam: Present: decreased breath sounds - Cardiovascular Cardiovascular exam: Present: RRR - GI/Abdominal GI/Abdominal exam: Present: normal bowel sounds, soft. Absent: tenderness - Extremities Exam Extremities exam: Absent: tenderness - Neurological Exam Neurological exam: Present: alert, oriented X3 - Psychiatric Psychiatric exam: Absent: agitated, anxious - Skin Skin exam: Present: dry, warm Palliative Quality Palliative Quality: Screen for Code Status: Yes, Screen for Goals of Care: Yes, Screen for Pain: Yes, If Pain Regimen Started, Initiate Bowel Regimen: NA, Screen for Nausea/Vomitting: Yes Code Status: 07/21/17 08:03 DNR [Resuscitation Status: Active] [RES] Routine Comment: Resuscitation Status: DNR-Comfort Care-Arrest - Labs CBC & Chem 7: 07/23/17 05:23 07/23/17 05:20 Labs: Laboratory Results - last 24 hr 07/22/17 07/22/17 07/22/17 08:02 11:35 16:46 WBC RBC Hgb Hct MCV MCH MCHC RDW Plt Count MPV Immature Gran % Seg Neutrophils % Lymphocytes % Monocytes % Eosinophils % Basophils % Neutrophils # Lymphocytes # Monocytes # Eosinophils # Basophils # Reactive Lymphocytes Toxic Granulation Platelet Estimate Large Platelets Immature Plt Fraction Sodium Potassium Chloride Carbon Dioxide BUN Creatinine Est GFR ( Amer) Est GFR (Non-Af Amer) BUN/Creatinine Ratio Glucose POC Glucose 136 H 231 H 260 H Calculated Osmolality Calcium Magnesium 07/22/17 07/23/17 07/23/17 21:30 05:20 05:23 WBC 3.9 L D RBC 3.37 L Hgb 10.9 L Hct 32.4 L MCV 96.1 MCH 32.3 MCHC 33.6 RDW 14.3 Plt Count 201 MPV 11.7 Immature Gran % 8.4 H Seg Neutrophils % 67.5 Lymphocytes % 15.2 Monocytes % 7.4 Eosinophils % 0.5 Basophils % 1.0 Neutrophils # 2.6 Lymphocytes # 0.6 Monocytes # 0.3 Eosinophils # 0.0 Basophils # 0.0 Reactive Lymphocytes Present A Toxic Granulation Present A Platelet Estimate Normal Large Platelets Present A Immature Plt Fraction 6.3 H Sodium 145 Potassium 3.9 Chloride 112 H Carbon Dioxide 25 BUN 43 H Creatinine 1.05 Est GFR ( Amer) > 60 Est GFR (Non-Af Amer) > 60 BUN/Creatinine Ratio 41 H Glucose 195 H POC Glucose 321 H Calculated Osmolality 316 H Calcium 8.5 L Magnesium 2.2 07/23/17 07:29 WBC RBC Hgb Hct MCV MCH MCHC RDW Plt Count MPV Immature Gran % Seg Neutrophils % Lymphocytes % Monocytes % Eosinophils % Basophils % Neutrophils # Lymphocytes # Monocytes # Eosinophils # Basophils # Reactive Lymphocytes Toxic Granulation Platelet Estimate Large Platelets Immature Plt Fraction Sodium Potassium Chloride Carbon Dioxide BUN Creatinine Est GFR ( Amer) Est GFR (Non-Af Amer) BUN/Creatinine Ratio Glucose POC Glucose 204 H Calculated Osmolality Calcium Magnesium - ABG Interpretation ABG results: ABG ABG pH 7.38 pH Units (7.32-7.45) 07/20/17 17:57 ABG pCO2 40 mmHg (35-45) 07/20/17 17:57 ABG pO2 372 mmHg (85-104) H 07/20/17 17:57 ABG O2 Saturation 100 % (95-98) H 07/20/17 17:57 PT/INR, D-dimer PT 14.2 Seconds (9.4-12.1) H 07/21/17 02:47 Consult Discharge Plan - Plan Referrals: Andres Arevalo CNP [Primary Care Provider] - 07/30/17 11:00 am
[2017-07-23] MEDS ORDERED: 0.9 % Sodium Chloride 1,000 ML ONE (16:58)
--- NOTE | 2017-07-23 17:54 | Internal Med Progress Note ---
Date of Encounter: 07/23/17 Time of Encounter: 17:54 - Assessment and plan (1) Hypotension Current Visit: Yes Status: Acute Assessment and plan: Continues to have baseline low blood pressure, noted to have severe hypertension with systolic in 70s this evening, associated with lethargy. Lactic acid noted to be slightly elevated. Will give 250 mL normal saline bolus , continue maintenance fluids. Urine is noted to be concentrated, check urine dipstick and culture. Blood cultures during this admission remained negative. TSH noted to be normal. Check random cortisol level. High risk for complications, monitor vital signs closely; Qualifiers: Hypotension type: idiopathic hypotension Qualified Code(s): I95.0 - Idiopathic hypotension (2) Generalized weakness Current Visit: Yes Status: Chronic Assessment and plan: Likely due to underlying medical problems. Physical and occupational therapy evaluation noted, recommend ECF placement. rehab services aide on board, discussing with family. (3) Pleural effusion Current Visit: Yes Status: Chronic Assessment and plan: Massive right-sided pleural effusion status post thoracentesis in the emergency room with 1 L of serosanguineous fluid aspiration. Fluid analysis was not sent , but effusion likely thought to be malignant. Pulmonology was consulted, patient may require Pleurx catheter in the future for recurrent pleural effusion with lung malignancy. patient's family has declined this at this time. Continue supportive care and supplemental oxygen. Repeat chest x-ray today. (4) Pneumonia Current Visit: Yes Status: Suspected Assessment and plan: Imaging not clear but antibiotics recommended per Pulmonology for suspected aspiration; Continue IV Zosyn. 2 sets of blood cultures remain negative. Respiratory infection panel, urine Legionella and strep pneumoniae antigens negative. Continue supportive care and supplemental oxygen. Speech Therapy was consulted, bedside swallow evaluation completed, patient cleared for soft diet and thin liquids. Qualifiers: Pneumonia type: aspiration pneumonia Aspiration pneumonia type: unspecified Laterality: right Lung location: lower lobe of lung Qualified Code(s): J69.0 - Pneumonitis due to inhalation of food and vomit (5) Sepsis Current Visit: Yes Status: Acute Assessment and plan: Presented with leukocytosis and tachycardia, likely due to pneumonia. Plan as above. Blood pressure continues to be low, unlikely related to sepsis. Continue IV fluids as above; Qualifiers: Sepsis type: sepsis due to unspecified organism Qualified Code(s): A41.9 - Sepsis, unspecified organism (6) Dysphagia Current Visit: Yes Status: Resolved Qualifiers: Dysphagia type: unspecified Qualified Code(s): R13.10 - Dysphagia, unspecified (7) Goals of care, counseling/discussion Current Visit: Yes Status: Chronic Assessment and plan: Patient has DPOA-his son. Discussed with patient's son at bedside, confirmed patient's CODE STATUS as DNR comfort care arrest, patient is agreeable to short- term intubation. (8) Diabetes Current Visit: Yes Status: Chronic Assessment and plan: Blood sugars better controlled. Continue Accu-Chek blood glucose monitoring with sliding scale insulin. Diabetic diet. Qualifiers: Diabetes mellitus type: type 2 Diabetes mellitus rn long term care insulin use: with longterm use Diabetes mellitus complication status: with unspecified complications Qualified Code(s): E11.8 - Type 2 diabetes mellitus with unspecified complications; Z79.4 - half-way (current) use of insulin; Z79.4 - supervisor intermediates (current) use of insulin; Z79.4 - half-way (current) use of insulin; Z79.4 - supervisor intermediates (current) use of insulin (9) Hypertension Current Visit: Yes Status: Chronic Qualifiers: Hypertension type: essential hypertension Qualified Code(s): I10 - Essential (primary) hypertension (10) Metastatic lung cancer (metastasis from lung to other site) Current Visit: Yes Status: Chronic Assessment and plan: Follows with oncology as outpatient. Recently started on chemotherapy. Continue outpatient follow-up. Qualifiers: Laterality: right Qualified Code(s): C34.91 - Malignant neoplasm of unspecified part of right bronchus or lung (11) Prostate CA Current Visit: Yes Status: Chronic Assessment and plan: Follows with oncology as outpatient, on Lupron. - Time Spent With Patient Total time spent is greater than 50% in coordination of care (as documented) at patient's floor/unit and/or counseling patient: - Subjective Interval history: Noted to be alert in the morning, but got drowsy and lethargic towards evening; has poor oral intake and poor appetite; BP continues to be low normal with episodes of very low readings plan of care d/w family at beside; awaiting rehab placement; - Constitutional Vitals: Temp Pulse Resp BP Pulse Ox 97.4 F L 76 16 72/51 98 07/23/17 15:00 07/23/17 15:00 07/23/17 16:31 07/23/17 15:00 07/23/17 16:31 General appearance: Present: A&O X 3, answers questions appropriately - Respiratory Respiratory exam: Present: decreased breath sounds (on the right side), CTAB. Absent: accessory muscle use, rales, rhonchi, wheezes - Cardiovascular Cardiovascular exam: Present: RRR, +S1, +S2. Absent: diastolic murmur, gallop, rubs, systolic murmur - GI/Abdominal GI/Abdominal exam: Present: normal bowel sounds, soft, no peritoneal signs. Absent: distended, tenderness - Extremities Exam Extremities exam: Present: full ROM, pedal edema (trace), warm, radial pulses palpable and symmetrical. Absent: calf tenderness, cyanotic - Neurological Exam Neurological exam: Present: altered (poor cognition and poor insight into current medical condition), CN II-XII intact, no focal deficits. Absent: pronater drift, facial droop, speech deficit Internal Medicine: Result - Labs CBC & Chem 7: 07/24/17 04:00 07/24/17 04:00 Labs: Short CBC 07/23/17 Range/Units 05:23 WBC 3.9 L D (4.3-11.1) K/mcL Hgb 10.9 L (12.9-16.9) g/dL Hct 32.4 L (37.5-50.1) % Plt Count 201 (140-400) K/mcL Neutrophils # 2.6 (1.6-8.9) K/mcL BMP 07/23/17 05:20 Sodium 145 Potassium 3.9 Chloride 112 H Carbon Dioxide 25 BUN 43 H Creatinine 1.05 Glucose 195 H Calcium 8.5 L - ABG Interpretation ABG results: ABG ABG pH 7.38 pH Units (7.32-7.45) 07/20/17 17:57 ABG pCO2 40 mmHg (35-45) 07/20/17 17:57 ABG pO2 372 mmHg (85-104) H 07/20/17 17:57 ABG O2 Saturation 100 % (95-98) H 07/20/17 17:57 PT/INR, D-dimer PT 14.2 Seconds (9.4-12.1) H 07/21/17 02:47 - VTE Documentation of Mechanical Device: Intermittent pneumatic compression device Consult Discharge Plan - Plan Referrals: Andres Arevalo CNP [Primary Care Provider] - 07/30/17 11:00 am
[2017-07-23] MEDS: 0.9 % Sodium Chloride 1,000 ML IVC SCH (19:51)
--- NOTE | 2017-07-24 00:27 | Electrocardiograph Report ---
[place] [id number] Test Date: 2017-07-20 Pat Name: Harrison Izquierdo Department: 103 Room: 05 Gender: M Tamper Operator: EKP : [id number] Requested By: Ángel Pisano Order Number: [id number] Reading MD: Sun Soni Measurements Intervals Lawson Rate: 98 P: 164 GA: 161 QRS: 42 QRSD: 79 T: 70 QT: 346 QTc: 401 Interpretive Statements SINUS RHYTHM Electronically Signed On 07-24-2017 0:25:46 EDT by Sun Soni
[2017-07-24] MEDS: Piperacillin/Tazobactam 3.375 GM in 0.9 % Sodium Chloride Mini Bag 100 ML IVPB SCH ×3 (04:23→20:49)
[2017-07-24] MEDS: *HR* Enoxaparin 40 MG/0.4 ML SYRINGE SQ SCH (04:25)
[2017-07-24 04:46] LABS: Basophils % 0.6 %; Eosinophils # 0.2 K/mcL (0.0-0.6); Eosinophils % 3.8 %; Hematocrit 31.1 % (37.5-50.1); Hemoglobin 10.3 g/dL (12.9-16.9); Immature Granulocytes % 1.3 % (0-4); Lymphocytes # 1.1 K/mcL (0.6-4.6); Lymphocytes % 22.7 %; Mean Corpuscular HGB Conc 33.1 g/dL (31.6-35.5); Mean Corpuscular Volume 96.6 fL (83.0-100.0); Mean Platelet Volume 11.7 fL (9.4-12.4); Monocytes # 0.4 K/mcL (0.0-1.3); Monocytes % 8.9 %; Platelet Count 209 K/mcL (140-400); Red Blood Count 3.22 M/mcL (4.19-5.50); Red Cell Distribution Width 14.6 % (11.5-14.5); Segmented Neutrophils % 62.7 %
[2017-07-24] MEDS: Ipratropium/Albuterol Neb 3 ML IH SCH ×4 (04:53→22:52)
[2017-07-24 05:04] LABS: BUN/Creatinine Ratio 41 (6-26); Blood Urea Nitrogen 46 mg/dL (8-23); Calcium 8.1 mg/dL (8.6-10.3); Carbon Dioxide 25 mEq/L (23-29); Chloride 115 mEq/L (98-107); Glucose 142 mg/dL (70-105); Osmolality,Calculated 314 (280-300); Potassium 3.6 mEq/L (3.5-5.1); Sodium 145 mEq/L (136-145); eGFR For African Americans > 60 (> 60); eGFR For Non-African Americans > 60 (> 60)
[2017-07-24 05:35] LABS: Platelet Estimate Normal (Normal); Reactive Lymphocytes Present (Not Present)
[2017-07-24] MEDS: 0.9 % Sodium Chloride 1,000 ML IVC SCH (07:17)
--- NOTE | 2017-07-24 08:14 | Palliative Progress Note ---
Date of Encounter: 07/24/17 Time of Encounter: 07:10 - Assessment and plan (1) Prostate CA Current Visit: Yes Status: Chronic Assessment and plan: Go receiving chemotherapy per oncology, patient and son his medical power of deputy attorney general continue to receive chemotherapy for his long as it is available to them. No changes today (2) Altered mental status Current Visit: Yes Status: Acute Assessment and plan: This appears to be clearing very well. Patient is awake and alert this morning has no recall of having seen me on Saturday, however this is not surprising. He is much improved since Saturday Awake and alert this morning, did have a rough night with low blood pressures. In being "out of it" per the nursing staff. Qualifiers: Altered mental status type: disorientation Qualified Code(s): R41.0 - Disorientation, unspecified (3) Dyspnea Current Visit: Yes Status: Acute Assessment and plan: Much improved No complaints of this morning per the patient. Qualifiers: Dyspnea type: shortness of breath Qualified Code(s): R06.02 - Shortness of breath; R06.00 - Dyspnea, unspecified; R06.01 - Orthopnea (4) Metastatic lung cancer (metastasis from lung to other site) Current Visit: Yes Status: Chronic Assessment and plan: Still interested in pursuing aggressive treatment per discussion with patient and son yesterday. We did not discussed today. Qualifiers: Laterality: right Qualified Code(s): C34.91 - Malignant neoplasm of unspecified part of right bronchus or lung (5) Goals of care, counseling/discussion Current Visit: Yes Status: Chronic Assessment and plan: CODE STATUS has been established and confirmed by the patient and the patient's son who is his medical power of deputy attorney general is DNR CCA the patient is okay. Goals are to go out and get rehabilitation and then return home and continue getting chemotherapy. He does understand Cynthia as does his family that since the chemotherapy appears to be palliative in nature hospice is available whenever they wish to have it. No changes this morning. The patient has no symptoms the palliative is currently working on, patient states his breathing is doing fairly well, no pain in his bowels are moving. Goals of care are well-established in that the patient wishes to continue to get aggressive chemotherapy if this is available to him and his CODE STATUS has been well defined and DNR CCA with short-term intubation okay. When following at a distance to the fact the patient is having periods of hypotension will not completely sign off. - Time Spent With Patient Total time spent is greater than 50% in coordination of care (as documented) at patient's floor/unit and/or counseling patient: - Subjective Interval history: Awake alert he has no complaints of at this time, however discussing acing staff overnight the patient had several episodes of retention and altered mental status. This appears largely resolved at least in terms of his altered mental status, his blood pressure does remain on the low side - Constitutional Vitals: Abnormal lab results RBC 3.22 M/mcL (4.19-5.50) L 07/24/17 04:00 Hgb 10.3 g/dL (12.9-16.9) L 07/24/17 04:00 Hct 31.1 % (37.5-50.1) L 07/24/17 04:00 RDW 14.6 % (11.5-14.5) H 07/24/17 04:00 Metamyelocytes % 4.0 % (0) H 07/21/17 02:47 Reactive Lymphocytes Present (Not Present) A 07/24/17 04:00 Toxic Granulation Present (Not Present) A 07/23/17 05:23 Large Platelets Present (Not Present) A 07/23/17 05:23 Immature Plt Fraction 6.3 % (1.1-6.1) H 07/23/17 05:23 Poikilocytosis 1+ (Not Present) A 07/20/17 17:43 Anisocytosis 1+ (Not Present) A 07/20/17 17:43 [place] Cells 1+ (Not Present) A 07/20/17 17:43 PT 14.2 Seconds (9.4-12.1) H 07/21/17 02:47 ABG pO2 372 mmHg (85-104) H 07/20/17 17:57 ABG O2 Saturation 100 % (95-98) H 07/20/17 17:57 Chloride 115 mEq/L (98-107) H 07/24/17 04:00 BUN 46 mg/dL (8-23) H 07/24/17 04:00 BUN/Creatinine Ratio 41 (6-26) H 07/24/17 04:00 Glucose 142 mg/dL (70-105) H 07/24/17 04:00 POC Glucose 139 mg/dL (70-99) H 07/23/17 19:24 Hemoglobin A1c 8.2 % (-5.6) H 07/20/17 17:43 Calculated Osmolality 314 (280-300) H 07/24/17 04:00 Calcium 8.1 mg/dL (8.6-10.3) L 07/24/17 04:00 Total Bilirubin 1.1 mg/dL (0.3-1.0) H 07/21/17 02:47 Direct Bilirubin 0.3 mg/dL (0.0-0.2) H 07/20/17 17:43 AST 8 Units/L (13-39) L 07/21/17 02:47 Serum Total Protein 5.4 g/dL (6.4-8.9) L 07/21/17 02:47 Albumin 3.2 g/dL (3.5-5.7) L 07/21/17 02:47 Globulin 2.2 g/dL (2.4-3.5) L 07/21/17 02:47 Ur Specific [place] 1.027 (1.010-1.025) H 07/20/17 18:02 General appearance: Present: no acute distress - Eye Eye exam: Present: normal appearance - Neck Neck exam: Present: normal inspection - Respiratory Respiratory exam: Present: decreased breath sounds - Cardiovascular Cardiovascular exam: Present: RRR - GI/Abdominal GI/Abdominal exam: Present: normal bowel sounds, soft. Absent: tenderness - Extremities Exam Extremities exam: Absent: tenderness - Neurological Exam Neurological exam: Present: alert - Psychiatric Psychiatric exam: Absent: agitated, anxious - Skin Skin exam: Present: dry, warm Palliative Quality Palliative Quality: Screen for Code Status: Yes, Screen for Goals of Care: Yes, Screen for Pain: Yes, If Pain Regimen Started, Initiate Bowel Regimen: NA, Screen for Nausea/Vomitting: Yes Code Status: 07/21/17 08:03 DNR [Resuscitation Status: Active] [RES] Routine Comment: Resuscitation Status: DNR-Comfort Care-Arrest - Labs CBC & Chem 7: 07/24/17 04:00 07/24/17 04:00 Labs: Laboratory Results - last 24 hr 07/23/17 07/23/17 07/23/17 07:29 10:51 10:55 WBC RBC Hgb Hct MCV MCH MCHC RDW Plt Count MPV Immature Gran % Seg Neutrophils % Lymphocytes % Monocytes % Eosinophils % Basophils % Neutrophils # Lymphocytes # Monocytes # Eosinophils # Basophils # Reactive Lymphocytes Platelet Estimate Sodium Potassium Chloride Carbon Dioxide BUN Creatinine Est GFR ( Amer) Est GFR (Non-Af Amer) BUN/Creatinine Ratio Glucose POC Glucose 204 H 268 H Calculated Osmolality Lactic Acid 3.8 H Calcium Magnesium 07/23/17 07/23/17 07/24/17 15:32 19:24 04:00 WBC 4.7 RBC 3.22 L Hgb 10.3 L Hct 31.1 L MCV 96.6 MCH 32.0 MCHC 33.1 RDW 14.6 H Plt Count 209 MPV 11.7 Immature Gran % 1.3 Seg Neutrophils % 62.7 Lymphocytes % 22.7 Monocytes % 8.9 Eosinophils % 3.8 Basophils % 0.6 Neutrophils # 3.0 Lymphocytes # 1.1 Monocytes # 0.4 Eosinophils # 0.2 Basophils # 0.0 Reactive Lymphocytes Present A Platelet Estimate Normal Sodium Potassium Chloride Carbon Dioxide BUN Creatinine Est GFR ( Amer) Est GFR (Non-Af Amer) BUN/Creatinine Ratio Glucose POC Glucose 177 H 139 H Calculated Osmolality Lactic Acid Calcium Magnesium 07/24/17 07/24/17 04:00 04:08 WBC RBC Hgb Hct MCV MCH MCHC RDW Plt Count MPV Immature Gran % Seg Neutrophils % Lymphocytes % Monocytes % Eosinophils % Basophils % Neutrophils # Lymphocytes # Monocytes # Eosinophils # Basophils # Reactive Lymphocytes Platelet Estimate Sodium 145 Potassium 3.6 Chloride 115 H Carbon Dioxide 25 BUN 46 H Creatinine 1.11 Est GFR ( Amer) > 60 Est GFR (Non-Af Amer) > 60 BUN/Creatinine Ratio 41 H Glucose 142 H POC Glucose Calculated Osmolality 314 H Lactic Acid 1.0 Calcium 8.1 L Magnesium 2.0 - Impressions Impressions Chest X-Ray 07/23/17 17:20 IMPRESSION: Large right pleural effusion with right lung airspace disease, atelectasis or pneumonia. The effusion has slightly increased in size since prior study D/ / Eula Mello Cha, MD / Eula Mello Cha, MD Interpreting Provider: Eula Mello Cha, MD - ABG Interpretation ABG results: ABG ABG pH 7.38 pH Units (7.32-7.45) 07/20/17 17:57 ABG pCO2 40 mmHg (35-45) 07/20/17 17:57 ABG pO2 372 mmHg (85-104) H 07/20/17 17:57 ABG O2 Saturation 100 % (95-98) H 07/20/17 17:57 PT/INR, D-dimer PT 14.2 Seconds (9.4-12.1) H 07/21/17 02:47 Consult Discharge Plan - Plan Referrals: Andres Arevalo CNP [Primary Care Provider] - 07/30/17 11:00 am
[2017-07-24] MEDS: Insulin LISPRO 300 UNITS/3 ML VIAL SQ SCH ×3 (08:35→17:42)
[2017-07-24] MEDS: Aspirin Enteric Coated 81 MG Tablet PO SCH (08:48)
[2017-07-24] MEDS: Megestrol Acetate 400 MG/10 ML UDC PO SCH (08:48)
[2017-07-24] MEDS: Famotidine 20 MG TABLET PO SCH (08:48)
[2017-07-24] MEDS: Gabapentin 300 MG CAPSULE PO SCH ×2 (08:48→20:49)
[2017-07-24] MEDS: Nicotine 21 MG PATCH.TD24 TD SCH (08:48)
--- NOTE | 2017-07-24 18:11 | Internal Med Progress Note ---
Date of Encounter: 07/24/17 Time of Encounter: 11:00 - Assessment and plan (1) Hypotension Current Visit: Yes Status: Acute Assessment and plan: Continues to have baseline low blood pressure, but blood pressure is improving better than yesterday. Lactic acid normalized. Continue maintenance IV hydration. High risk for complications, monitor vital signs closely; Qualifiers: Hypotension type: idiopathic hypotension Qualified Code(s): I95.0 - Idiopathic hypotension (2) Generalized weakness Current Visit: Yes Status: Chronic Assessment and plan: Likely due to underlying medical problems. Physical and occupational therapy evaluation noted, recommend ECF placement. cargo and ramp services manager on board, discussing with family. (3) Pleural effusion Current Visit: Yes Status: Chronic Assessment and plan: Massive right-sided pleural effusion status post thoracentesis in the emergency room with 1 L of serosanguineous fluid aspiration. Fluid analysis was not sent , but effusion likely thought to be malignant. Pulmonology was consulted, patient may require Pleurx catheter in the future for recurrent pleural effusion with lung malignancy. patient's family has declined this at the time. Continue supportive care and supplemental oxygen. Repeat chest x-ray shows large right pleural effusion with atelectasis, slightly worse. Patient does not appear to be in respiratory distress, not hypoxic for the most part. Case again discussed with pulmonology, encourage outpatient follow-up if patient's family desires Pleurx catheter. (4) Pneumonia Current Visit: Yes Status: Suspected Assessment and plan: Imaging not clear but antibiotics recommended per Pulmonology for suspected aspiration; Continue IV Zosyn. 2 sets of blood cultures remain negative. Respiratory infection panel, urine Legionella and strep pneumoniae antigens negative. Continue supportive care and supplemental oxygen. Speech Therapy was consulted, bedside swallow evaluation completed, patient cleared for soft diet and thin liquids. Qualifiers: Pneumonia type: aspiration pneumonia Aspiration pneumonia type: unspecified Laterality: right Lung location: lower lobe of lung Qualified Code(s): J69.0 - Pneumonitis due to inhalation of food and vomit (5) Sepsis Current Visit: Yes Status: Resolved Assessment and plan: Presented with leukocytosis and tachycardia, likely due to pneumonia. Plan as above. Blood pressure continues to be low, unlikely related to sepsis. Continue IV fluids as above; Qualifiers: Sepsis type: sepsis due to unspecified organism Qualified Code(s): A41.9 - Sepsis, unspecified organism (6) Dysphagia Current Visit: Yes Status: Resolved Qualifiers: Dysphagia type: unspecified Qualified Code(s): R13.10 - Dysphagia, unspecified (7) Goals of care, counseling/discussion Current Visit: Yes Status: Chronic Assessment and plan: Patient has DPOA-his son. Discussed with patient's son at bedside, confirmed patient's CODE STATUS as DNR comfort care arrest, patient is agreeable to short- term intubation. Plan of care discussed in great detail with patient's family. [id number] had multiple questions regarding cancer prognosis and spread. Will consult oncology for further discussion regarding continued chemotherapy. Patient does not seem to be tolerating quite well due to ongoing mental status changes, lethargy, anorexia and hypotension. (8) Diabetes Current Visit: Yes Status: Chronic Assessment and plan: Blood sugars better controlled. Continue Accu-Chek blood glucose monitoring with sliding scale insulin. Diabetic diet. Qualifiers: Diabetes mellitus type: type 2 Diabetes mellitus mcfp insulin use: with mcfp use Diabetes mellitus complication status: with unspecified complications Qualified Code(s): E11.8 - Type 2 diabetes mellitus with unspecified complications; Z79.4 - custodial (current) use of insulin; Z79.4 - terminal supervisor (current) use of insulin; Z79.4 - terminal supervisor (current) use of insulin; Z79.4 - custodial (current) use of insulin (9) Hypertension Current Visit: Yes Status: Chronic Qualifiers: Hypertension type: essential hypertension Qualified Code(s): I10 - Essential (primary) hypertension (10) Metastatic lung cancer (metastasis from lung to other site) Current Visit: Yes Status: Chronic Qualifiers: Laterality: right Qualified Code(s): C34.91 - Malignant neoplasm of unspecified part of right bronchus or lung (11) Prostate CA Current Visit: Yes Status: Chronic - Time Spent With Patient Total time spent is greater than 50% in coordination of care (as documented) at patient's floor/unit and/or counseling patient: - Subjective Interval history: Reports feeling much better today. Denies chest pain, shortness of breath, cough. Noted to be more alert and oriented today. Plan of care discussed with patient's son and [id number] at bedside. - Constitutional Vitals: Temp Pulse Resp BP Pulse Ox 98.2 F 86 14 95/73 95 07/24/17 16:45 04/11/18 16:45 07/24/17 16:45 07/24/17 16:45 07/24/17 16:45 General appearance: Present: A&O X 3, answers questions appropriately - Respiratory Respiratory exam: Present: decreased breath sounds (On the right side), CTAB. Absent: accessory muscle use, rales, rhonchi, wheezes - Cardiovascular Cardiovascular exam: Present: RRR, +S1, +S2. Absent: diastolic murmur, gallop, rubs, systolic murmur - GI/Abdominal GI/Abdominal exam: Present: normal bowel sounds, soft, no peritoneal signs. Absent: distended, tenderness - Extremities Exam Extremities exam: Present: full ROM, warm, radial pulses palpable and symmetrical. Absent: calf tenderness, cyanotic, pedal edema Internal Medicine: Result - Labs CBC & Chem 7: 07/24/17 04:00 07/24/17 04:00 Labs: Short CBC 07/24/17 Range/Units 04:00 WBC 4.7 (4.3-11.1) K/mcL Hgb 10.3 L (12.9-16.9) g/dL Hct 31.1 L (37.5-50.1) % Plt Count 209 (140-400) K/mcL Neutrophils # 3.0 (1.6-8.9) K/mcL BMP 07/24/17 04:00 Sodium 145 Potassium 3.6 Chloride 115 H Carbon Dioxide 25 BUN 46 H Creatinine 1.11 Glucose 142 H Calcium 8.1 L - ABG Interpretation ABG results: ABG ABG pH 7.38 pH Units (7.32-7.45) 07/20/17 17:57 ABG pCO2 40 mmHg (35-45) 07/20/17 17:57 ABG pO2 372 mmHg (85-104) H 07/20/17 17:57 ABG O2 Saturation 100 % (95-98) H 07/20/17 17:57 PT/INR, D-dimer PT 14.2 Seconds (9.4-12.1) H 07/21/17 02:47 - VTE Documentation of Mechanical Device: Intermittent pneumatic compression device Consult Discharge Plan - Plan Referrals: Andres Arevalo PATENTED HOGSHEAD ASSEMBLER [Primary Care Provider] - 07/30/17 11:00 am
[2017-07-25] MEDS: Piperacillin/Tazobactam 3.375 GM in 0.9 % Sodium Chloride Mini Bag 100 ML IVPB SCH ×3 (03:40→19:58)
[2017-07-25] MEDS: Ipratropium/Albuterol Neb 3 ML IH SCH ×4 (04:56→22:25)
[2017-07-25] MEDS: *HR* Enoxaparin 40 MG/0.4 ML SYRINGE SQ SCH (05:16)
[2017-07-25] MEDS: 0.9 % Sodium Chloride 1,000 ML IVC SCH (07:02)
[2017-07-25] MEDS: Insulin LISPRO 300 UNITS/3 ML VIAL SQ SCH ×4 (10:08→23:56)
[2017-07-25] MEDS: Nicotine 21 MG PATCH.TD24 TD SCH (10:17)
[2017-07-25] MEDS: Megestrol Acetate 400 MG/10 ML UDC PO SCH (10:17)
[2017-07-25] MEDS: Famotidine 20 MG TABLET PO SCH (10:18)
[2017-07-25] MEDS: Gabapentin 300 MG CAPSULE PO SCH ×2 (10:18→19:59)
[2017-07-25] MEDS: Aspirin Enteric Coated 81 MG Tablet PO SCH (10:18)
[2017-07-25] MEDS: D5% in 0.45% NACL 1,000 ML IVC SCH (12:58)
[2017-07-25] MEDS: Acetaminophen 325 MG TABLET PO PRN (12:58)
--- NOTE | 2017-07-25 18:56 | Internal Med Progress Note ---
Date of Encounter: 07/25/17 Time of Encounter: 11:00 - Assessment and plan (1) Generalized weakness Current Visit: Yes Status: Chronic Assessment and plan: Likely due to metastatic cancer Physical and occupational therapy evaluation noted, recommend ECF placement. shared services and outsourcing manager on board, discussing with family. (2) Prostate CA Current Visit: Yes Status: Chronic Assessment and plan: Follows with oncology as outpatient, on Lupron. (3) Metastatic lung cancer (metastasis from lung to other site) Current Visit: Yes Status: Chronic Assessment and plan: Follows with oncology as outpatient. Recently started on chemotherapy. Will consult hematology oncology for recommendations of treatment/prognosis Qualifiers: Laterality: unspecified laterality Qualified Code(s): C34.90 - Malignant neoplasm of unspecified part of unspecified bronchus or lung (4) Pleural effusion Current Visit: Yes Status: Chronic Assessment and plan: Massive right-sided pleural effusion status post thoracentesis in the emergency room with 1 L of serosanguineous fluid aspiration. Fluid analysis was not sent , but effusion likely thought to be malignant. Pulmonology was consulted, patient may require Pleurx catheter in the future for recurrent pleural effusion with lung malignancy. Continue supportive care and supplemental oxygen. (5) Sepsis Current Visit: Yes Status: Resolved Assessment and plan: Resolved; continue to monitor Qualifiers: Sepsis type: sepsis due to unspecified organism Qualified Code(s): A41.9 - Sepsis, unspecified organism (6) Pneumonia Current Visit: Yes Status: Suspected Assessment and plan: Imaging not clear but antibiotics recommended per Pulmonology for suspected aspiration; Continue IV Zosyn. 2 sets of blood cultures remain negative. Respiratory infection panel, urine Legionella and strep pneumoniae antigens negative. Continue supportive care and supplemental oxygen. Qualifiers: Pneumonia type: aspiration pneumonia Aspiration pneumonia type: unspecified Laterality: right Lung location: lower lobe of lung Qualified Code(s): J69.0 - Pneumonitis due to inhalation of food and vomit (7) Goals of care, counseling/discussion Current Visit: Yes Status: Chronic Assessment and plan: Family would like to discuss prognosis with hematology oncology to guide goals of care - Time Spent With Patient Total time spent is greater than 50% in coordination of care (as documented) at patient's floor/unit and/or counseling patient: - Subjective Interval history: Patient altered this morning Family unsure about goals of care and family wanting hematology oncology recommendations for prognosis of cancer - Constitutional Vitals: Temp Pulse Resp BP Pulse Ox 98.2 F 81 18 93/67 100 07/25/17 15:45 07/25/17 15:45 07/25/17 16:14 07/25/17 15:45 07/25/17 16:14 General appearance: Present: A&O X 0, A&O X 3, no acute distress, answers questions appropriately - Respiratory Respiratory exam: Present: CTAB. Absent: accessory muscle use, rales, rhonchi, wheezes - Cardiovascular Cardiovascular exam: Present: RRR, +S1, +S2. Absent: diastolic murmur, gallop, rubs, systolic murmur Internal Medicine: Result - Labs CBC & Chem 7: 07/24/17 04:00 07/24/17 04:00 - ABG Interpretation ABG results: ABG ABG pH 7.38 pH Units (7.32-7.45) 07/20/17 17:57 ABG pCO2 40 mmHg (35-45) 07/20/17 17:57 ABG pO2 372 mmHg (85-104) H 07/20/17 17:57 ABG O2 Saturation 100 % (95-98) H 07/20/17 17:57 PT/INR, D-dimer PT 14.2 Seconds (9.4-12.1) H 07/21/17 02:47 - VTE Documentation of Mechanical Device: Intermittent pneumatic compression device Consult Discharge Plan - Plan Referrals: Andres Arevalo COMPENSATION SUPERVISOR [Primary Care Provider] - 07/30/17 11:00 am
[2017-07-26] MEDS: Ipratropium/Albuterol Neb 3 ML IH SCH ×4 (04:08→22:19)
[2017-07-26] MEDS: Insulin LISPRO 300 UNITS/3 ML VIAL SQ SCH ×3 (05:00→11:37)
[2017-07-26] MEDS: Piperacillin/Tazobactam 3.375 GM in 0.9 % Sodium Chloride Mini Bag 100 ML IVPB SCH ×3 (05:11→21:23)
[2017-07-26] MEDS: *HR* Enoxaparin 40 MG/0.4 ML SYRINGE SQ SCH (05:11)
[2017-07-26] MEDS: Gabapentin 300 MG CAPSULE PO SCH ×2 (07:45→21:24)
[2017-07-26] MEDS: Aspirin Enteric Coated 81 MG Tablet PO SCH (07:45)
[2017-07-26] MEDS: Megestrol Acetate 400 MG/10 ML UDC PO SCH (07:45)
[2017-07-26] MEDS: Famotidine 20 MG TABLET PO SCH (07:45)
--- NOTE | 2017-07-26 07:46 | Palliative Progress Note ---
Date of Encounter: 07/26/17 Time of Encounter: 07:30 - Assessment and plan (1) Prostate CA Current Visit: Yes Status: Chronic Assessment and plan: Go receiving chemotherapy per oncology, patient and son his medical power of criminal attorney continue to receive chemotherapy for his long as it is available to them Was patient's Sinemet a couple of days ago, last I spoke with he and his son. His mental status has changed since then and family history requested to speak to oncology that supposed to happen today. Patient is obviously hospice eligible if he wishes to pursue it. Plan is to get PT and OT involved and get him out [place] a [place] [facility] [place] for rehabilitation, however his orthostatic hypotension may make that impossible. Which case the patient would have to go out out skill need, and that means the [place] will not be paid for by Medicare. (2) Altered mental status Current Visit: Yes Status: Acute Assessment and plan: This appears to be waxing and waning. Today's clearly altered. Other days when I am seeing him he has not been, I did not see him yesterday as we are following from a distance. May represent a downward trend.. Qualifiers: Altered mental status type: disorientation Qualified Code(s): R41.0 - Disorientation, unspecified (3) Dyspnea Current Visit: Yes Status: Acute Assessment and plan: He is moving air well and speaking easily, although his speech is garbled at times. He does not complain of being short of breath. Qualifiers: Dyspnea type: shortness of breath Qualified Code(s): R06.02 - Shortness of breath; R06.00 - Dyspnea, unspecified; R06.01 - Orthopnea (4) Metastatic lung cancer (metastasis from lung to other site) Current Visit: Yes Status: Chronic Assessment and plan: Awaiting consultation from oncology regarding further treatment for this. Qualifiers: Laterality: unspecified laterality Qualified Code(s): C34.90 - Malignant neoplasm of unspecified part of unspecified bronchus or lung (5) Goals of care, counseling/discussion Current Visit: Yes Status: Chronic Assessment and plan: CODE STATUS has been established and confirmed by the patient and the patient's son who is his medical power of criminal attorney is DNR CCA the patient is okay. Goals are to go out and get rehabilitation and then return home and continue getting chemotherapy. He does understand Cynthia as does his family that since the chemotherapy appears to be palliative in nature hospice is available whenever they wish to have it. No changes this morning. The patient has no symptoms the palliative is currently working on, patient states his breathing is doing fairly well, no pain in his bowels are moving. Goals of care are well-established in that the patient wishes to continue to get aggressive chemotherapy if this is available to him and his CODE STATUS has been well defined and DNR CCA with short-term intubation okay. When following at a distance to the fact the patient is having periods of hypotension will not completely sign off. Day the patient is much more altered than I have seen him previously, goals of care were established and the patient was more lucid and son was present. Son is his medical power of criminal attorney. Family requesting to talk to oncology before deciding further what course to follow. Mental with the nursing staff oncology plans to see some time today I hope to be able to discuss with family or with her shortly thereafter from oncology. Discussion with patient and family patient wished to have whenever oncology had to offer, liver with the orthostatic hypotension the patient has been experiencing per the nursing staff I am unsure if he will be old offer anything. Patient is certainly hospice eligible if he desires it. I also think the patient's probably reaccumulating fluid on the right hand side and a Pleurx catheter placement may be called for. - Time Spent With Patient Total time spent is greater than 50% in coordination of care (as documented) at patient's floor/unit and/or counseling patient: - Subjective Interval history: Awake alert speech is at times unintelligible, he is not oriented at this time. I told by the nursing staff that he has been severely static hypotensive in the day yesterday pressures okay as long as he stay supine. College he is supposed to see him today. - Constitutional Vitals: Abnormal lab results RBC 3.22 M/mcL (4.19-5.50) L 07/24/17 04:00 Hgb 10.3 g/dL (12.9-16.9) L 07/24/17 04:00 Hct 31.1 % (37.5-50.1) L 07/24/17 04:00 RDW 14.6 % (11.5-14.5) H 07/24/17 04:00 Metamyelocytes % 4.0 % (0) H 07/21/17 02:47 Reactive Lymphocytes Present (Not Present) A 07/24/17 04:00 Toxic Granulation Present (Not Present) A 07/23/17 05:23 Large Platelets Present (Not Present) A 07/23/17 05:23 Immature Plt Fraction 6.3 % (1.1-6.1) H 07/23/17 05:23 Poikilocytosis 1+ (Not Present) A 07/20/17 17:43 Anisocytosis 1+ (Not Present) A 07/20/17 17:43 Daniel Cells 1+ (Not Present) A 07/20/17 17:43 PT 14.2 Seconds (9.4-12.1) H 07/21/17 02:47 ABG pO2 372 mmHg (85-104) H 07/20/17 17:57 ABG O2 Saturation 100 % (95-98) H 07/20/17 17:57 Chloride 115 mEq/L (98-107) H 07/24/17 04:00 BUN 46 mg/dL (8-23) H 07/24/17 04:00 BUN/Creatinine Ratio 41 (6-26) H 07/24/17 04:00 Glucose 142 mg/dL (70-105) H 07/24/17 04:00 POC Glucose 65 mg/dL (70-99) L 07/25/17 23:37 Hemoglobin A1c 8.2 % (-5.6) H 07/20/17 17:43 Calculated Osmolality 314 (280-300) H 07/24/17 04:00 Calcium 8.1 mg/dL (8.6-10.3) L 07/24/17 04:00 Total Bilirubin 1.1 mg/dL (0.3-1.0) H 07/21/17 02:47 Direct Bilirubin 0.3 mg/dL (0.0-0.2) H 07/20/17 17:43 AST 8 Units/L (13-39) L 07/21/17 02:47 Serum Total Protein 5.4 g/dL (6.4-8.9) L 07/21/17 02:47 Albumin 3.2 g/dL (3.5-5.7) L 07/21/17 02:47 Globulin 2.2 g/dL (2.4-3.5) L 07/21/17 02:47 Ur Specific [place] 1.027 (1.010-1.025) H 07/20/17 18:02 General appearance: Present: no acute distress - Head Head exam: Present: atraumatic, normal inspection - Respiratory Respiratory exam: Present: decreased breath sounds (Right for more decreased than left) - Cardiovascular Cardiovascular exam: Present: RRR - GI/Abdominal GI/Abdominal exam: Present: normal bowel sounds, soft. Absent: tenderness - Extremities Exam Extremities exam: Absent: tenderness - Neurological Exam Neurological exam: Present: alert, altered - Psychiatric Psychiatric exam: Absent: agitated, anxious - Skin Skin exam: Present: dry, warm Palliative Quality Palliative Quality: Screen for Code Status: Yes, Screen for Goals of Care: Yes, Screen for Pain: Yes, If Pain Regimen Started, Initiate Bowel Regimen: NA, Screen for Nausea/Vomitting: Yes Code Status: 07/21/17 08:03 DNR [Resuscitation Status: Active] [RES] Routine Comment: Resuscitation Status: DNR-Comfort Care-Arrest - Labs CBC & Chem 7: 07/24/17 04:00 07/24/17 04:00 Labs: Laboratory Results - last 24 hr 07/25/17 07/25/17 07/25/17 07:21 07:26 07:35 POC Glucose 39 L* 77 53 L 07/25/17 07/25/17 07/25/17 09:21 11:19 15:45 POC Glucose 61 L 137 H 160 H 07/25/17 07/25/17 19:19 23:37 POC Glucose 163 H 65 L - ABG Interpretation ABG results: ABG ABG pH 7.38 pH Units (7.32-7.45) 07/20/17 17:57 ABG pCO2 40 mmHg (35-45) 07/20/17 17:57 ABG pO2 372 mmHg (85-104) H 07/20/17 17:57 ABG O2 Saturation 100 % (95-98) H 07/20/17 17:57 PT/INR, D-dimer PT 14.2 Seconds (9.4-12.1) H 07/21/17 02:47 Consult Discharge Plan - Plan Referrals: Andres Arevalo, TRAVOGRAPH OPERATOR [Primary Care Provider] - 07/30/17 11:00 am
[2017-07-26] MEDS: Nicotine 21 MG PATCH.TD24 TD SCH (08:02)
[2017-07-26] MEDS: D5% in 0.45% NACL 1,000 ML IVC SCH (11:36)
[2017-07-26] MEDS ORDERED: Lidocaine -MPF 2% 5 ML VIAL ONE (12:30)
[2017-07-26] MEDS: Haloperidol Lactate 5 MG/ML VIAL IVP PRN ×2 (12:47→17:59)
[2017-07-26] MEDS ORDERED: Haloperidol Lactate 5 MG/ML VIAL IVP ONE (13:09)
--- NOTE | 2017-07-26 15:52 | Pulmonology Progress Note ---
Date of Encounter: 07/26/17 Time of Encounter: 12:45 Assessment and Plan (1) Pleural effusion Current Visit: Yes Status: Chronic Patient is not in any acute distress at this time and he might benefit from Pleurx pleural catheter which can even be done as outpatient. Patient has some mental status change which is difficult to explain to him the procedure and power of rear admiral when his available will discuss procedure if they agree to have it done. Please call for any questions. 07/26 after discussing the case with Dr. Holbrook on the palliative care, I did talk to the family at the bedside regarding placement of Pleurx pleural catheter and explained to them all the risks, alternative, benefits of the procedure and they agree to have it done. Procedure subsequently was done successfully without immediate complications. When patient discharged and if there is any questions then can follow-up as outpatient. (2) Altered mental status Current Visit: Yes Status: Acute There is some improvement patient is oriented to place and partially to time. Qualifiers: Altered mental status type: disorientation Qualified Code(s): R41.0 - Disorientation, unspecified (3) Metastatic lung cancer (metastasis from lung to other site) Current Visit: Yes Status: Chronic Qualifiers: Laterality: unspecified laterality Qualified Code(s): C34.90 - Malignant neoplasm of unspecified part of unspecified bronchus or lung Subjective Principal diagnosis: Pleural effusion and altered mental status Interval history: Patient is not able to communicate due to mental status change but is having respiratory distress Objective PUL Vital signs: Last Vital Signs Temp 98.0 F 07/26/17 15:35 Pulse 90 07/26/17 15:35 Resp 20 07/26/17 15:35 BP 105/70 07/26/17 15:35 Pulse Ox 91 07/26/17 15:35 General appearance: appears uncomfortable Neck: supple Effort: mildly labored Auscultation: bilateral: diminished breath sounds Percussion: left: not dull, right: dull Cardiovascular: regular rate and rhythm Gastrointestinal: normoactive bowel sounds unable to assess due to mental status anxious Results - Laboratory Findings CBC and BMP: 07/24/17 04:00 07/24/17 04:00 ABG ABG pH 7.38 pH Units (7.32-7.45) 07/20/17 17:57 ABG pCO2 40 mmHg (35-45) 07/20/17 17:57 ABG pO2 372 mmHg (85-104) H 07/20/17 17:57 ABG O2 Saturation 100 % (95-98) H 07/20/17 17:57 PT/INR, D-dimer PT 14.2 Seconds (9.4-12.1) H 07/21/17 02:47 Abnormal lab findings: Abnormal lab results RBC 3.22 M/mcL (4.19-5.50) L 07/24/17 04:00 Hgb 10.3 g/dL (12.9-16.9) L 07/24/17 04:00 Hct 31.1 % (37.5-50.1) L 07/24/17 04:00 RDW 14.6 % (11.5-14.5) H 07/24/17 04:00 Metamyelocytes % 4.0 % (0) H 07/21/17 02:47 Reactive Lymphocytes Present (Not Present) A 07/24/17 04:00 Toxic Granulation Present (Not Present) A 07/23/17 05:23 Large Platelets Present (Not Present) A 07/23/17 05:23 Immature Plt Fraction 6.3 % (1.1-6.1) H 07/23/17 05:23 Poikilocytosis 1+ (Not Present) A 07/20/17 17:43 Anisocytosis 1+ (Not Present) A 07/20/17 17:43 Daniel Cells 1+ (Not Present) A 07/20/17 17:43 PT 14.2 Seconds (9.4-12.1) H 07/21/17 02:47 ABG pO2 372 mmHg (85-104) H 07/20/17 17:57 ABG O2 Saturation 100 % (95-98) H 07/20/17 17:57 Chloride 115 mEq/L (98-107) H 07/24/17 04:00 BUN 46 mg/dL (8-23) H 07/24/17 04:00 BUN/Creatinine Ratio 41 (6-26) H 07/24/17 04:00 Glucose 142 mg/dL (70-105) H 07/24/17 04:00 POC Glucose 123 mg/dL (70-99) H 07/26/17 10:57 Hemoglobin A1c 8.2 % (-5.6) H 07/20/17 17:43 Calculated Osmolality 314 (280-300) H 07/24/17 04:00 Calcium 8.1 mg/dL (8.6-10.3) L 07/24/17 04:00 Total Bilirubin 1.1 mg/dL (0.3-1.0) H 07/21/17 02:47 Direct Bilirubin 0.3 mg/dL (0.0-0.2) H 07/20/17 17:43 AST 8 Units/L (13-39) L 07/21/17 02:47 Serum Total Protein 5.4 g/dL (6.4-8.9) L 07/21/17 02:47 Albumin 3.2 g/dL (3.5-5.7) L 07/21/17 02:47 Globulin 2.2 g/dL (2.4-3.5) L 07/21/17 02:47 Ur Specific [place] 1.027 (1.010-1.025) H 07/20/17 18:02 - Microbiology Findings Microbiology Findings: Microbiology, Last 48 Hours 07/21/17 02:47 Blood Culture - Final Peripheral Venipuncture No growth. 07/21/17 02:47 Blood Culture - Final Peripheral Venipuncture No growth. - Clinical Findings Intake & Output: Intake & Output 07/25/17 07/26/17 07/26/17 23:59 07:59 15:59 Intake Total 200 / 200 1100 / 1100 Output Total 0 / 0 600 / 600 Balance 200 / 200 -600 / -600 1100 / 1100 Weight 85.1 kg - VTE Documentation of Mechanical Device: Intermittent pneumatic compression device Consult Discharge Plan - Plan Referrals: Andres Arevalo, PACKAGING MANAGER [Primary Care Provider] -
--- NOTE | 2017-07-26 16:22 | Oncology Inp Consult Note ---
Date of Encounter: 07/26/17 Time of Encounter: 17:00 Assessment and Plan (1) Altered mental status Status: Acute Assessment and plan: Patient with history of brain metastatic disease, history of lung cancer, metastatic high-grade prostate cancer, status post CyberKnife treatment to brain lesion June 2017, status post first cycle of chemotherapy in June 2017, hospitalized with the altered mental status, delirium likely due to progressive malignancy. No obvious metabolic or infectious etiology We discussed his overall prognosis due to widespread metastatic disease, recurrent pleural effusion, brain metastatic disease palliative nature of treatments with patient and family. At this point it appears that patient is tolerating chemotherapy poorly. He has had poor quality of life with history of falls, recurrent pleural effusions needing thoracentesis, confusion episodes dependent on family for activities of daily living. We discussed pursuing no further chemotherapy given his overall prognosis. Family is agreeable with this plan. We also discussed palliative care option, symptomatic management of pleural effusion, pulmonary has been consulted and patient has a Pleurx catheter. He does not appear to be in pain but has confusion episodes no obvious source of infection. Agreeable to obtaining brain imaging study. Palliative care on board discussed starting Haldol for delirium, pain control measures. We will follow up with the results of above testing and discussed with patient' s family. Qualifiers: Altered mental status type: disorientation Qualified Code(s): R41.0 - Disorientation, unspecified - Data of Consult Requesting Physician: Carl Perales Primary Care Provider: Andres Arevalo CNP - Consult Narrative Reason for consult: Altered mental status, prostate cancer and lung cancer History of present illness: 71 year old male who is being seen in onc clinic for for prostate cancer/lung cancer stage IV. He has a medical history significant for diabetes, frequent falls late due to his uncontrolled sugar, lower extremity ulcers, dyslipidemia, patient had increased frequency of urination, as result of which he was evaluated with lab works PSA came back elevated? Around 20s. Patient does not recollect or tell me if he had a biopsy of the prostate. He follows up with local urology. MRI 11/29--- 7.5 cm x 2.9 cm x 5.3 cm PI-RADS 5 lesion involving much of the prostate and extending into the right seminal vesicle, anterior mesorectal fascia, right pelvic sidewall, and urinary bladder base near the trigone. Resultant moderate right hydroureter. Metastatic bilateral common iliac and external iliac lymphadenopathy. No findings of osseous metastatic disease in the pelvis. Initial PSA around 60s. He had received lupron injections at that time. Bx per [facility] Records--[place] 5+4,4+5,4+4, T3bN+ Further restaging with MRI was recommended prior to XRT He had Ct abd 03/01 for symptoms of diarrhea--non contrast that showed 1-1.5cm adenopathy in the pelvis Bone scan showed uptake along 7th rib--X rays and CT chest was obtained 03/31-- Enlarged right hilar lymph nodes concerning for neoplasm, spiculated masslike opacity seen within the Bronch 05/02 CK7+, CK5,6 focally postive, Ki67 focally positive 06/14/17 MRI brain metastatic rt parietal lesion s/p thoracentesis rt side. Patient had a single fraction of 22 perkins targeting right parietal lobe metastatic lesion, CyberKnife treatment to, 06/27/2017. Past Med Surg Social Fam HX - Past Medical History Medical history: cancer, diabetes, hyperlipidemia, hypertension Psychiatric history: anxiety, depression - Past Surgical History Surgical History: orthopedic, other - Social History Smoking Status: Current every day smoker Smokeless Tobacco Status: No Alcohol use: none Drug use: none Medications and Allergies Albuterol Sulfate [Proair Hfa] 2 puff IH QID 03/25/17 [History] Aspirin Enteric Coated [Aspirin EC] 81 mg PO DAILY 03/25/17 [History] Citalopram Hydrobromide [Celexa] 20 mg PO DAILY 03/25/17 [History] Gabapentin [Neurontin] 300 mg PO TID 03/25/17 [History] Insulin ASPART [Novolog Flexpen] 6 unit SQ AD PRN 03/25/17 [History] Lisinopril [Zestril] 10 mg PO DAILY 03/25/17 [History] Metformin HCl [Glucophage] 1,000 mg PO BID 03/25/17 [History] Tiotropium [Spiriva] 18 mcg IH DAILY 03/25/17 [History] Atorvastatin [Lipitor] 40 mg PO HS 05/08/17 [History] Famotidine [Pepcid] 40 mg PO DAILY 05/08/17 [History] Dexamethasone [Decadron] 4 mg PO BID #36 tab 06/07/17 [Rx] Ondansetron HCl [Zofran] 4 mg PO Q6H PRN #30 tablet 06/07/17 [Rx] Prochlorperazine Maleate [Compazine] 10 mg PO Q6HR PRN #90 tablet 06/07/17 [Rx] Megestrol Acetate [Megace] 800 mg PO DAILY #400 mls 07/08/17 [Rx] Tramadol HCl [Ultram] 50 mg PO BID PRN 07/08/17 [History] Tetrahydrozoline HCl [Eye Drops] 1 drop OP BID 07/21/17 [History] 3 Allergy/AdvReac Type Severity Reaction Status Date / Time No Known Allergies Allergy Verified 07/16/17 11:03 Oncology - Exam - Constitutional Vitals: Temp Pulse Resp BP Pulse Ox 98.0 F 90 18 105/70 97 07/26/17 15:35 07/26/17 15:35 07/26/17 16:09 07/26/17 15:35 07/26/17 16:09 General appearance: disheveled - Head Head exam: Present: atraumatic, normal inspection - Eye Eye exam: Present: conjuntiva pink - ENT ENT exam: Present: mucous membranes dry - Respiratory Respiratory exam: Present: CTAB - Cardiovascular Cardiovascular exam: Present: +S1, +S2 - GI/Abdominal GI/Abdominal exam: Present: normal bowel sounds, soft - Extremities Exam Extremities exam: Present: pedal edema - Neurological Exam Additional comments: awake and disoriented Consult Discharge Plan - Plan Referrals: Andres Arevalo, POT ROOM TAPPER [Primary Care Provider] -
[2017-07-26] MEDS ORDERED: *HR* LORazepam 2 MG/ML VIAL IVP ONE (17:50)
--- NOTE | 2017-07-26 19:37 | Internal Med Progress Note ---
Date of Encounter: 07/26/17 Time of Encounter: 13:00 - Assessment and plan (1) Generalized weakness Current Visit: Yes Status: Chronic Assessment and plan: Likely due to metastatic cancer Goals of care discussed with family for palliative and possibly hospice (2) Prostate CA Current Visit: Yes Status: Chronic Assessment and plan: Patient had been followed with oncology as outpatient, on Lupron. (3) Metastatic lung cancer (metastasis from lung to other site) Current Visit: Yes Status: Chronic Assessment and plan: Patient had been followed by oncology as outpatient. Suspect recurrent pleural effusions secondary to this Qualifiers: Laterality: unspecified laterality Qualified Code(s): C34.90 - Malignant neoplasm of unspecified part of unspecified bronchus or lung (4) Pleural effusion Current Visit: Yes Status: Chronic Assessment and plan: Massive right-sided pleural effusion status post thoracentesis in the emergency room with 1 L of serosanguineous fluid aspiration. Fluid analysis was not sent , but effusion likely thought to be malignant. Pulmonology was consulted, for Pleurx catheter in the future for recurrent pleural effusion with lung malignancy. Continue supportive care and supplemental oxygen. (5) Sepsis Current Visit: Yes Status: Resolved Assessment and plan: Suspect patient was never septic or with pneumonia but her mental status related to malignancy and possibly brain metastases Qualifiers: Sepsis type: sepsis due to unspecified organism Qualified Code(s): A41.9 - Sepsis, unspecified organism (6) Pneumonia Current Visit: Yes Status: Suspected Assessment and plan: Imaging not clear but antibiotics recommended per Pulmonology for suspected aspiration; Continue IV Zosyn. 2 sets of blood cultures remain negative. Respiratory infection panel, urine Legionella and strep pneumoniae antigens negative. Continue supportive care and supplemental oxygen. Qualifiers: Pneumonia type: aspiration pneumonia Aspiration pneumonia type: unspecified Laterality: right Lung location: lower lobe of lung Qualified Code(s): J69.0 - Pneumonitis due to inhalation of food and vomit (7) Goals of care, counseling/discussion Current Visit: Yes Status: Chronic Assessment and plan: Family would like to discuss prognosis with hematology oncology to guide goals of care - Time Spent With Patient Total time spent is greater than 50% in coordination of care (as documented) at patient's floor/unit and/or counseling patient: - Subjective Interval history: Patient without any improvement in altered mental status this morning; MRI of brain pending Pleurx pleural catheter placed today due to recurrent pleural effusions suspected secondary to malignant process - Constitutional Vitals: Temp Pulse Resp BP Pulse Ox 98.0 F 90 18 105/70 97 07/26/17 15:35 07/26/17 15:35 07/26/17 16:09 07/26/17 15:35 07/26/17 16:09 General appearance: Present: A&O X 0, no acute distress - Cardiovascular Cardiovascular exam: Present: RRR, +S1, +S2. Absent: diastolic murmur, gallop, rubs, systolic murmur Internal Medicine: Result - Labs CBC & Chem 7: 07/24/17 04:00 07/24/17 04:00 - ABG Interpretation ABG results: ABG ABG pH 7.38 pH Units (7.32-7.45) 07/20/17 17:57 ABG pCO2 40 mmHg (35-45) 07/20/17 17:57 ABG pO2 372 mmHg (85-104) H 07/20/17 17:57 ABG O2 Saturation 100 % (95-98) H 07/20/17 17:57 PT/INR, D-dimer PT 14.2 Seconds (9.4-12.1) H 07/21/17 02:47 - Impressions Impressions Chest X-Ray 07/26/17 13:25 IMPRESSION: Interval placement of right-sided chest tube. No pneumothorax. Stable appearance to right lung with significant opacification likely relating to large right pleural effusion and associated atelectasis. Other underlying pathology not excluded. Continued follow-up suggested. D/ / 07/26/2017 14:25:21 Michael Bautista MD / [place] Alarcon Interpreting Provider: Michael Bautista MD - VTE Documentation of Mechanical Device: Intermittent pneumatic compression device Consult Discharge Plan - Plan Referrals: Andres Arevalo, OUTSOLE COMPRESSOR [Primary Care Provider] -
[2017-07-27] MEDS: Piperacillin/Tazobactam 3.375 GM in 0.9 % Sodium Chloride Mini Bag 100 ML IVPB SCH ×3 (03:21→22:19)
[2017-07-27] MEDS: Ipratropium/Albuterol Neb 3 ML IH SCH ×4 (03:36→22:11)
--- NOTE | 2017-07-27 08:39 | Palliative Progress Note ---
Date of Encounter: 07/27/17 Time of Encounter: 08:40 - Assessment and plan (1) Restlessness and agitation Current Visit: Yes Status: Acute Assessment and plan: Haloperidol has been administered x2 las 24 hours. Continue and monitor (2) Goals of care, counseling/discussion Current Visit: Yes Status: Chronic Assessment and plan: No family present at my visit. Asked staff to have son call me when he arrives. (3) Dysphagia Current Visit: Yes Status: Resolved Assessment and plan: NPO at present r/t mental status. High risk for aspiration if fed in current state Qualifiers: Dysphagia type: unspecified Qualified Code(s): R13.10 - Dysphagia, unspecified (4) Prostate CA Current Visit: Yes Status: Chronic - Time Spent With Patient Total time spent is greater than 50% in coordination of care (as documented) at patient's floor/unit and/or counseling patient: - Subjective Interval history: Patient alert but restless and disoriented. Chart reviewed, pleurx cath placed yesterday. Still appears dyspneic some at rest, but staff reports improved from yesterday. - Constitutional Vitals: Abnormal lab results RBC 3.22 M/mcL (4.19-5.50) L 07/24/17 04:00 Hgb 10.3 g/dL (12.9-16.9) L 07/24/17 04:00 Hct 31.1 % (37.5-50.1) L 07/24/17 04:00 RDW 14.6 % (11.5-14.5) H 07/24/17 04:00 Metamyelocytes % 4.0 % (0) H 07/21/17 02:47 Reactive Lymphocytes Present (Not Present) A 07/24/17 04:00 Toxic Granulation Present (Not Present) A 07/23/17 05:23 Large Platelets Present (Not Present) A 07/23/17 05:23 Immature Plt Fraction 6.3 % (1.1-6.1) H 07/23/17 05:23 Poikilocytosis 1+ (Not Present) A 07/20/17 17:43 Anisocytosis 1+ (Not Present) A 07/20/17 17:43 Daniel Cells 1+ (Not Present) A 07/20/17 17:43 PT 14.2 Seconds (9.4-12.1) H 07/21/17 02:47 ABG pO2 372 mmHg (85-104) H 07/20/17 17:57 ABG O2 Saturation 100 % (95-98) H 07/20/17 17:57 Chloride 115 mEq/L (98-107) H 07/24/17 04:00 BUN 46 mg/dL (8-23) H 07/24/17 04:00 BUN/Creatinine Ratio 41 (6-26) H 07/24/17 04:00 Glucose 142 mg/dL (70-105) H 07/24/17 04:00 POC Glucose 129 mg/dL (70-99) H 07/26/17 23:11 Hemoglobin A1c 8.2 % (-5.6) H 07/20/17 17:43 Calculated Osmolality 314 (280-300) H 07/24/17 04:00 Calcium 8.1 mg/dL (8.6-10.3) L 07/24/17 04:00 Total Bilirubin 1.1 mg/dL (0.3-1.0) H 07/21/17 02:47 Direct Bilirubin 0.3 mg/dL (0.0-0.2) H 07/20/17 17:43 AST 8 Units/L (13-39) L 07/21/17 02:47 Serum Total Protein 5.4 g/dL (6.4-8.9) L 07/21/17 02:47 Albumin 3.2 g/dL (3.5-5.7) L 07/21/17 02:47 Globulin 2.2 g/dL (2.4-3.5) L 07/21/17 02:47 Ur Specific [place] 1.027 (1.010-1.025) H 07/20/17 18:02 General appearance: Present: mild distress - Respiratory Respiratory exam: Present: decreased breath sounds, CTAB Additional comments: Pleurx cath intact with dressing - Cardiovascular Cardiovascular exam: Present: +S1, +S2 - GI/Abdominal GI/Abdominal exam: Present: normal bowel sounds, soft - Additional comments: [place] with dk dona urine - Extremities Exam Additional comments: Some purplish discoloration to knees and small scabbed areas from previous fall - Neurological Exam Neurological exam: Present: alert Additional comments: Disoriented x3. Does shake head "yes/no" to some questions, some speech not understandable. Does not follow commands Palliative Quality Palliative Quality: Screen for Code Status: Yes, Screen for Goals of Care: Yes, Screen for Pain: Yes, If Pain Regimen Started, Initiate Bowel Regimen: NA, Screen for Nausea/Vomitting: Yes Code Status: 07/21/17 08:03 DNR [Resuscitation Status: Active] [RES] Routine Comment: Resuscitation Status: DNR-Comfort Care-Arrest - Labs CBC & Chem 7: 07/24/17 04:00 07/24/17 04:00 Labs: Laboratory Results - last 24 hr 07/26/17 07/26/17 07/26/17 03:46 07:16 10:57 POC Glucose 121 H 121 H 123 H 07/26/17 07/26/17 19:25 23:11 POC Glucose 105 H 129 H - Impressions Impressions Chest X-Ray 07/26/17 13:25 IMPRESSION: Interval placement of right-sided chest tube. No pneumothorax. Stable appearance to right lung with significant opacification likely relating to large right pleural effusion and associated atelectasis. Other underlying pathology not excluded. Continued follow-up suggested. D/ / 07/26/2017 14:25:21 Michael Bautista MD / [place] Alarcon Interpreting Provider: Michael Bautista MD Brain MRI 07/26/17 16:29 IMPRESSION: Severely motion degraded examination without obvious acute abnormal or large new brain mass. Contrast was not administered. D/ / 07/26/2017 19:37:51 Jose Salas MD / shanel Interpreting Provider: Jose Salas MD - ABG Interpretation ABG results: ABG ABG pH 7.38 pH Units (7.32-7.45) 07/20/17 17:57 ABG pCO2 40 mmHg (35-45) 07/20/17 17:57 ABG pO2 372 mmHg (85-104) H 07/20/17 17:57 ABG O2 Saturation 100 % (95-98) H 07/20/17 17:57 PT/INR, D-dimer PT 14.2 Seconds (9.4-12.1) H 07/21/17 02:47 Consult Discharge Plan - Plan Referrals: Andres Arevalo, MANAGER PROGRAMMING [Primary Care Provider] -
[2017-07-27] MEDS: D5% in 0.45% NACL 1,000 ML IVC SCH (08:51)
[2017-07-27] MEDS: Nicotine 21 MG PATCH.TD24 TD SCH (08:52)
[2017-07-27] MEDS: *HR* Enoxaparin 40 MG/0.4 ML SYRINGE SQ SCH (08:52)
[2017-07-27] MEDS: Aspirin Enteric Coated 81 MG Tablet PO SCH (08:55)
[2017-07-27] MEDS: Megestrol Acetate 400 MG/10 ML UDC PO SCH (08:55)
[2017-07-27] MEDS: Famotidine 20 MG TABLET PO SCH (08:55)
[2017-07-27] MEDS: Gabapentin 300 MG CAPSULE PO SCH (08:55)
--- NOTE | 2017-07-27 09:24 | Pulmonology Progress Note ---
Date of Encounter: 07/27/17 Time of Encounter: 08:40 Assessment and Plan (1) Pleural effusion Current Visit: Yes Status: Chronic Patient is not in any acute distress at this time and he might benefit from Pleurx pleural catheter which can even be done as outpatient. Patient has some mental status change which is difficult to explain to him the procedure and power of immigration attorney when his available will discuss procedure if they agree to have it done. Please call for any questions. 07/26 after discussing the case with Dr. Holbrook on the palliative care, I did talk to the family at the bedside regarding placement of Pleurx pleural catheter and explained to them all the risks, alternative, benefits of the procedure and they agree to have it done. Procedure subsequently was done successfully without immediate complications. When patient discharged and if there is any questions then can follow-up as outpatient. 07/27 status post Pleurx catheter placement and he seems to breathe better after draining the fluid. Will follow-up when necessary and any questions please call. He can follow-up as outpatient regarding case catheter. (2) Altered mental status Current Visit: Yes Status: Acute There is some improvement patient is oriented to place and partially to time. Qualifiers: Altered mental status type: disorientation Qualified Code(s): R41.0 - Disorientation, unspecified (3) Metastatic lung cancer (metastasis from lung to other site) Current Visit: Yes Status: Chronic Qualifiers: Laterality: unspecified laterality Qualified Code(s): C34.90 - Malignant neoplasm of unspecified part of unspecified bronchus or lung Subjective Principal diagnosis: Pleural effusion and altered mental status Interval history: Status post Pleurx pleural catheter and patient denies any complain and he seems to breathe better Objective PUL Vital signs: Last Vital Signs Temp 97.5 F L 07/27/17 08:10 Pulse 93 07/27/17 08:10 Resp 20 07/27/17 08:10 BP 93/71 07/27/17 08:10 Pulse Ox 95 07/27/17 08:10 General appearance: no acute distress Neck: supple Effort: normal Auscultation: left: clear, right: diminished breath sounds Percussion: right: dull (Pleurx catheter in the right side) Cardiovascular: regular rate and rhythm Gastrointestinal: normoactive bowel sounds Extremities: no cyanosis unable to assess due to mental status Results - Laboratory Findings CBC and BMP: 07/24/17 04:00 07/24/17 04:00 ABG ABG pH 7.38 pH Units (7.32-7.45) 07/20/17 17:57 ABG pCO2 40 mmHg (35-45) 07/20/17 17:57 ABG pO2 372 mmHg (85-104) H 07/20/17 17:57 ABG O2 Saturation 100 % (95-98) H 07/20/17 17:57 PT/INR, D-dimer PT 14.2 Seconds (9.4-12.1) H 07/21/17 02:47 Abnormal lab findings: Abnormal lab results RBC 3.22 M/mcL (4.19-5.50) L 07/24/17 04:00 Hgb 10.3 g/dL (12.9-16.9) L 07/24/17 04:00 Hct 31.1 % (37.5-50.1) L 07/24/17 04:00 RDW 14.6 % (11.5-14.5) H 07/24/17 04:00 Metamyelocytes % 4.0 % (0) H 07/21/17 02:47 Reactive Lymphocytes Present (Not Present) A 07/24/17 04:00 Toxic Granulation Present (Not Present) A 07/23/17 05:23 Large Platelets Present (Not Present) A 07/23/17 05:23 Immature Plt Fraction 6.3 % (1.1-6.1) H 07/23/17 05:23 Poikilocytosis 1+ (Not Present) A 07/20/17 17:43 Anisocytosis 1+ (Not Present) A 07/20/17 17:43 [place] Cells 1+ (Not Present) A 07/20/17 17:43 PT 14.2 Seconds (9.4-12.1) H 07/21/17 02:47 ABG pO2 372 mmHg (85-104) H 07/20/17 17:57 ABG O2 Saturation 100 % (95-98) H 07/20/17 17:57 Chloride 115 mEq/L (98-107) H 07/24/17 04:00 BUN 46 mg/dL (8-23) H 07/24/17 04:00 BUN/Creatinine Ratio 41 (6-26) H 07/24/17 04:00 Glucose 142 mg/dL (70-105) H 07/24/17 04:00 POC Glucose 129 mg/dL (70-99) H 07/26/17 23:11 Hemoglobin A1c 8.2 % (-5.6) H 07/20/17 17:43 Calculated Osmolality 314 (280-300) H 07/24/17 04:00 Calcium 8.1 mg/dL (8.6-10.3) L 07/24/17 04:00 Total Bilirubin 1.1 mg/dL (0.3-1.0) H 07/21/17 02:47 Direct Bilirubin 0.3 mg/dL (0.0-0.2) H 07/20/17 17:43 AST 8 Units/L (13-39) L 07/21/17 02:47 Serum Total Protein 5.4 g/dL (6.4-8.9) L 07/21/17 02:47 Albumin 3.2 g/dL (3.5-5.7) L 07/21/17 02:47 Globulin 2.2 g/dL (2.4-3.5) L 07/21/17 02:47 Ur Specific [place] 1.027 (1.010-1.025) H 07/20/17 18:02 - Microbiology Findings Microbiology Findings: Microbiology, Last 48 Hours 07/21/17 02:47 Blood Culture - Final Peripheral Venipuncture No growth. 07/21/17 02:47 Blood Culture - Final Peripheral Venipuncture No growth. - Clinical Findings Intake & Output: Intake & Output 07/26/17 07/27/17 07/27/17 23:59 07:59 15:59 Intake Total 1100 / 1100 0 / 0 Output Total 300 / 300 Balance 800 / 800 0 / 0 Weight 82.8 kg - VTE Documentation of Mechanical Device: Intermittent pneumatic compression device Consult Discharge Plan - Plan Referrals: Andres Arevalo, BOTTOM CRANE OPERATOR [Primary Care Provider] -
--- NOTE | 2017-07-27 09:35 | Oncology Inp Progress Note ---
Date of Encounter: 07/27/17 Time of Encounter: 16:00 (1) Altered mental status Current Visit: Yes Status: Acute Assessment and plan: Patient with history of brain metastatic disease, history of lung cancer, metastatic high-grade prostate cancer, status post CyberKnife treatment to brain lesion June 2017, status post first cycle of chemotherapy in June 2017, hospitalized with the altered mental status, delirium likely due to progressive malignancy. No obvious metabolic or infectious etiology MRI brain done without contrast, findings/report reviewed with patient's son. He was on steroids before which has been withdrawn, has not restarted steroids as he tolerated it anyways poorly with confusion and hyperglycemia. Status post Pleurx catheter. He does not appear to be in pain. Family meeting yesterday, non aggressive measures preferred by family. Palliative care recommendations appreciated. Goals d/w patient's son today. Qualifiers: Altered mental status type: disorientation Qualified Code(s): R41.0 - Disorientation, unspecified Oncology: Subj Interval history: Patient is confused, on oxygen mild distress. - Constitutional Vitals: Vital Signs Temp Pulse Resp BP Pulse Ox 07/27/17 08:10 97.5 F L 93 20 93/71 95 07/27/17 03:44 98.3 F 93 20 104/74 94 07/27/17 03:38 16 94 07/27/17 03:23 92 07/26/17 23:08 98.2 F 111 22 103/41 07/26/17 22:21 16 96 07/26/17 19:24 97.9 F 99 20 97/70 07/26/17 16:09 18 97 07/26/17 15:35 98.0 F 90 20 105/70 91 07/26/17 10:40 98 F 90 18 95/70 98 07/26/17 10:17 20 98 Intake and Output 07/26/17 07/27/17 07/27/17 23:59 07:59 15:59 Intake Total 1100 / 1100 0 / 0 Output Total 300 / 300 Balance 800 / 800 0 / 0 Intake: IV Fluids 1100 / 1100 D5% And 0.45% Nacl 1000 Ml Bag 1000 / 1000 1,000 ML @ 50 mls/hr IVC .Q20H [facility] Rx#:[id number] Zosyn 3.375 GM In 0.9 % Sodium 100 / 100 Chloride (Mini-Bag +) 100 ML @ 25 mls/hr IVPB Q8H [facility] Rx#: [id number] Oral 0 / 0 Output: Catheter 300 / 300 Other: Meal Breakfast Percent of Meal Consumed 0% Weight 82.8 kg Blood Glucose* 129 156 126 Patient Weight 07/27/17 23:59 Weight 82.8 kg General appearance: mild distress - Head Head exam: Present: atraumatic - Eye Eye exam: Present: sclera anicteric - ENT ENT exam: Present: mucous membranes dry - Respiratory Respiratory exam: Present: CTAB - Cardiovascular Cardiovascular exam: Present: +S1, +S2 - Extremities Exam Extremities exam: Present: normal inspection - Neurological Exam Neurological exam: Present: altered Oncology: Obj Data - Labs CBC & Chem 7: 07/24/17 04:00 07/24/17 04:00 Labs: Laboratory Results - last 24 hr 07/26/17 07/26/17 07/26/17 03:46 07:16 10:57 POC Glucose 121 H 121 H 123 H 07/26/17 07/26/17 19:25 23:11 POC Glucose 105 H 129 H - Impressions Impressions Chest X-Ray 07/26/17 13:25 IMPRESSION: Interval placement of right-sided chest tube. No pneumothorax. Stable appearance to right lung with significant opacification likely relating to large right pleural effusion and associated atelectasis. Other underlying pathology not excluded. Continued follow-up suggested. D/ / 07/26/2017 14:25:21 Michael Bautista MD / [place] Interpreting Provider: Michael Bautista MD Brain MRI 07/26/17 16:29 IMPRESSION: Severely motion degraded examination without obvious acute abnormal or large new brain mass. Contrast was not administered. D/ / 07/26/2017 19:37:51 Jose Salas MD / shanel Interpreting Provider: Jose Salas MD - ABG Interpretation ABG results: ABG ABG pH 7.38 pH Units (7.32-7.45) 07/20/17 17:57 ABG pCO2 40 mmHg (35-45) 07/20/17 17:57 ABG pO2 372 mmHg (85-104) H 07/20/17 17:57 ABG O2 Saturation 100 % (95-98) H 07/20/17 17:57 PT/INR, D-dimer PT 14.2 Seconds (9.4-12.1) H 07/21/17 02:47 Consult Discharge Plan - Plan Referrals: Andres Arevalo, VASCULAR RADIOLOGIST [Primary Care Provider] -
[2017-07-27 09:41] LABS: Hematocrit 33.7 % (37.5-50.1); Hemoglobin 11.2 g/dL (12.9-16.9); Mean Corpuscular HGB Conc 33.2 g/dL (31.6-35.5); Mean Corpuscular Volume 96.3 fL (83.0-100.0); Mean Platelet Volume 11.6 fL (9.4-12.4); Nucleated Red Blood Cells 0.2 /100 WBC (0); Platelet Count 258 K/mcL (140-400); Red Cell Distribution Width 15.3 % (11.5-14.5)
[2017-07-27 10:01] LABS: Alanine Aminotransferase 21 Units/L (7-52); Albumin 2.4 g/dL (3.5-5.7); Alkaline Phosphatase 75 Units/L (34-104); Aspartate Amino Transferase 9 Units/L (13-39); BUN/Creatinine Ratio 31 (6-26); Bilirubin,Total 0.6 mg/dL (0.3-1.0); Blood Urea Nitrogen 28 mg/dL (8-23); Calcium 8.2 mg/dL (8.6-10.3); Carbon Dioxide 24 mEq/L (23-29); Chloride 116 mEq/L (98-107); Globulin 2.3 g/dL (2.4-3.5); Glucose 241 mg/dL (70-105); Osmolality,Calculated 315 (280-300); Potassium 3.4 mEq/L (3.5-5.1); Sodium 146 mEq/L (136-145); Total Protein 4.7 g/dL (6.4-8.9); eGFR For African Americans > 60 (> 60); eGFR For Non-African Americans > 60 (> 60)
[2017-07-27 10:12] LABS: Lymphocytes # 2.3 K/mcL (0.6-4.6); Monocytes # 0.5 K/mcL (0.0-1.3); Neutrophils # 10.1 K/mcL (1.6-8.9); Platelet Estimate Normal (Normal)
[2017-07-27] MEDS ORDERED: *HR* Metoprolol 5 MG/5 ML VIAL IVP ONE ×2 (12:33→12:36)
[2017-07-27] MEDS ORDERED: Haloperidol Lactate 5 MG/ML VIAL IM ONE (13:24)
--- NOTE | 2017-07-27 19:08 | Internal Med Progress Note ---
Date of Encounter: 07/27/17 Time of Encounter: 11:00 - Assessment and plan (1) Metastatic lung cancer (metastasis from lung to other site) Current Visit: Yes Status: Chronic Assessment and plan: MRI of brain without contrast showed known parietal brain metastasis which has not significantly enlarged Pleurx pleural catheter placed today due to recurrent pleural effusions suspected secondary to malignant process Hematology oncology in addition to the pelvis care following and appreciate recommendations Qualifiers: Laterality: unspecified laterality Qualified Code(s): C34.90 - Malignant neoplasm of unspecified part of unspecified bronchus or lung (2) Generalized weakness Current Visit: Yes Status: Chronic Assessment and plan: Likely due to metastatic cancer Goals of care discussed with family for palliative and possibly hospice (3) Prostate CA Current Visit: Yes Status: Chronic Assessment and plan: Patient had been followed with oncology as outpatient, on Lupron. (4) Pleural effusion Current Visit: Yes Status: Chronic Assessment and plan: Massive right-sided pleural effusion status post thoracentesis in the emergency room with 1 L of serosanguineous fluid aspiration. Fluid analysis was not sent , but effusion likely thought to be malignant. Pulmonology was consulted, for Pleurx catheter in the future for recurrent pleural effusion with lung malignancy. Continue supportive care and supplemental oxygen. (5) Sepsis Current Visit: Yes Status: Resolved Assessment and plan: Suspect patient was never septic or with pneumonia but her mental status related to malignancy and possibly brain metastases Qualifiers: Sepsis type: sepsis due to unspecified organism Qualified Code(s): A41.9 - Sepsis, unspecified organism (6) Pneumonia Current Visit: Yes Status: Suspected Assessment and plan: Imaging not clear but antibiotics recommended per Pulmonology for suspected aspiration; Continue IV Zosyn. 2 sets of blood cultures remain negative. Respiratory infection panel, urine Legionella and strep pneumoniae antigens negative. Continue supportive care and supplemental oxygen. Qualifiers: Pneumonia type: aspiration pneumonia Aspiration pneumonia type: unspecified Laterality: right Lung location: lower lobe of lung Qualified Code(s): J69.0 - Pneumonitis due to inhalation of food and vomit (7) Goals of care, counseling/discussion Current Visit: Yes Status: Chronic Assessment and plan: Family would like to discuss prognosis with hematology oncology to guide goals of care - Time Spent With Patient Total time spent is greater than 50% in coordination of care (as documented) at patient's floor/unit and/or counseling patient: - Subjective Interval history: Patient without any improvement in altered mental status this morning MRI of brain without contrast showed known parietal brain metastasis which has not significantly enlarged Pleurx pleural catheter placed today due to recurrent pleural effusions suspected secondary to malignant process - Constitutional Vitals: Temp Pulse Resp BP Pulse Ox 97.2 F L 77 22 92/46 99 07/27/17 19:04 07/27/17 19:04 07/27/17 19:04 07/27/17 19:04 07/27/17 19:04 General appearance: Present: A&O X 0, no acute distress - Respiratory Respiratory exam: Present: CTAB. Absent: accessory muscle use, rales, rhonchi, wheezes - Cardiovascular Cardiovascular exam: Present: RRR, +S1, +S2. Absent: diastolic murmur, gallop, rubs, systolic murmur Internal Medicine: Result - Labs CBC & Chem 7: 07/27/17 04:00 07/27/17 04:00 Labs: Short CBC 07/27/17 Range/Units 04:00 WBC 12.9 H D (4.3-11.1) K/mcL Hgb 11.2 L (12.9-16.9) g/dL Hct 33.7 L (37.5-50.1) % Plt Count 258 (140-400) K/mcL Neutrophils # 10.1 H (1.6-8.9) K/mcL BMP 07/27/17 04:00 Sodium 146 H Potassium 3.4 L Chloride 116 H Carbon Dioxide 24 BUN 28 H Creatinine 0.90 Glucose 241 H Calcium 8.2 L Liver Function 07/27/17 Range/Units 04:00 Total Bilirubin 0.6 (0.3-1.0) mg/dL AST 9 L (13-39) Units/L ALT 21 (7-52) Units/L Alkaline Phosphatase 75 (34-104) Units/L Albumin 2.4 L (3.5-5.7) g/dL - ABG Interpretation ABG results: ABG ABG pH 7.38 pH Units (7.32-7.45) 07/20/17 17:57 ABG pCO2 40 mmHg (35-45) 07/20/17 17:57 ABG pO2 372 mmHg (85-104) H 07/20/17 17:57 ABG O2 Saturation 100 % (95-98) H 07/20/17 17:57 PT/INR, D-dimer PT 14.2 Seconds (9.4-12.1) H 07/21/17 02:47 - Impressions Impressions Brain MRI 07/26/17 16:29 IMPRESSION: Severely motion degraded examination without obvious acute abnormal or large new brain mass. Contrast was not administered. D/ / 07/26/2017 19:37:51 Jose Salas MD / shanel Interpreting Provider: Jose Salas MD - VTE Documentation of Mechanical Device: Intermittent pneumatic compression device Consult Discharge Plan - Plan Referrals: Andres Arevalo, PLASMA CENTER NURSE [Primary Care Provider] -
[2017-07-28] MEDS: Gabapentin 300 MG CAPSULE PO SCH ×3 (03:36→20:20)
[2017-07-28] MEDS: *HR* Enoxaparin 40 MG/0.4 ML SYRINGE SQ SCH (03:43)
[2017-07-28] MEDS: Ipratropium/Albuterol Neb 3 ML IH SCH ×4 (04:11→22:25)
[2017-07-28] MEDS: Nicotine 21 MG PATCH.TD24 TD SCH (08:26)
[2017-07-28] MEDS: D5% in 0.45% NACL 1,000 ML IVC SCH (08:27)
[2017-07-28 09:39] LABS: Basophils # 0.1 K/mcL (0.0-0.2); Basophils % 0.4 %; Eosinophils # 0.1 K/mcL (0.0-0.6); Eosinophils % 0.4 %; Hematocrit 32.9 % (37.5-50.1); Hemoglobin 11.1 g/dL (12.9-16.9); Immature Granulocytes % 2.9 % (0-4); Lymphocytes # 1.8 K/mcL (0.6-4.6); Lymphocytes % 9.8 %; Mean Corpuscular HGB Conc 33.7 g/dL (31.6-35.5); Mean Corpuscular Hemoglobin 32.7 pg (28.0-33.3); Mean Corpuscular Volume 97.1 fL (83.0-100.0); Mean Platelet Volume 11.3 fL (9.4-12.4); Monocytes # 0.7 K/mcL (0.0-1.3); Neutrophils # 15.4 K/mcL (1.6-8.9); Nucleated Red Blood Cells 0.1 /100 WBC (0); Platelet Count 255 K/mcL (140-400); Red Blood Count 3.39 M/mcL (4.19-5.50); Red Cell Distribution Width 15.1 % (11.5-14.5); Segmented Neutrophils % 82.5 %
[2017-07-28 09:58] LABS: BUN/Creatinine Ratio 29 (6-26); Blood Urea Nitrogen 22 mg/dL (8-23); Calcium 8.1 mg/dL (8.6-10.3); Carbon Dioxide 24 mEq/L (23-29); Chloride 119 mEq/L (98-107); Glucose 215 mg/dL (70-105); Osmolality,Calculated 314 (280-300); Potassium 3.1 mEq/L (3.5-5.1); Sodium 147 mEq/L (136-145); eGFR For African Americans > 60 (> 60); eGFR For Non-African Americans > 60 (> 60)
[2017-07-28 10:12] LABS: Platelet Estimate Normal (Normal)
[2017-07-28 10:13] LABS: Anisocytosis 1+ (Not Present)
[2017-07-28] MEDS: Aspirin Enteric Coated 81 MG Tablet PO SCH (10:13)
[2017-07-28] MEDS: Megestrol Acetate 400 MG/10 ML UDC PO SCH (10:14)
[2017-07-28] MEDS: Famotidine 20 MG TABLET PO SCH (10:14)
--- NOTE | 2017-07-28 18:17 | Internal Med Progress Note ---
Date of Encounter: 07/28/17 Time of Encounter: 11:00 - Assessment and plan (1) Metastatic lung cancer (metastasis from lung to other site) Current Visit: Yes Status: Chronic Assessment and plan: MRI of brain without contrast showed known parietal brain metastasis which has not significantly enlarged Family meeting held with plans for consideration of home hospice versus ECF with hospice; case management to assist on 07/29/17 Qualifiers: Laterality: unspecified laterality Qualified Code(s): C34.90 - Malignant neoplasm of unspecified part of unspecified bronchus or lung (2) Generalized weakness Current Visit: Yes Status: Chronic Assessment and plan: Likely due to metastatic cancer Goals of care discussed with family for palliative and hospice as above (3) Prostate CA Current Visit: Yes Status: Chronic Assessment and plan: Patient had been followed with oncology as outpatient, on Lupron. (4) Pleural effusion Current Visit: Yes Status: Chronic Assessment and plan: Massive right-sided pleural effusion status post thoracentesis in the emergency room with 1 L of serosanguineous fluid aspiration. Fluid analysis was not sent, but effusion likely thought to be malignant. Pulmonology was consulted, for Pleurx catheter in the future for recurrent pleural effusion with lung malignancy. Continue supportive care and supplemental oxygen. (5) Sepsis Current Visit: Yes Status: Resolved Assessment and plan: Suspect patient was never septic or with pneumonia but her mental status related to malignancy and possibly brain metastases Qualifiers: Sepsis type: sepsis due to unspecified organism Qualified Code(s): A41.9 - Sepsis, unspecified organism (6) Pneumonia Current Visit: Yes Status: Suspected Assessment and plan: Imaging not clear but antibiotics recommended per Pulmonology for suspected aspiration; Continue IV Zosyn. 2 sets of blood cultures remain negative. Respiratory infection panel, urine Legionella and strep pneumoniae antigens negative. Continue supportive care and supplemental oxygen. Qualifiers: Pneumonia type: aspiration pneumonia Aspiration pneumonia type: unspecified Laterality: right Lung location: lower lobe of lung Qualified Code(s): J69.0 - Pneumonitis due to inhalation of food and vomit (7) Goals of care, counseling/discussion Current Visit: Yes Status: Chronic Assessment and plan: Home hospice versus ECF with hospice - Time Spent With Patient Total time spent is greater than 50% in coordination of care (as documented) at patient's floor/unit and/or counseling patient: - Subjective Interval history: Patient without any improvement in altered mental status this morning MRI of brain without contrast showed known parietal brain metastasis which has not significantly enlarged Family meeting held with plans for consideration of home hospice versus ECF with hospice; case management to assist on 07/29/17 - Constitutional Vitals: Temp Pulse Resp BP Pulse Ox 97.8 F 82 16 137/67 91 07/28/17 15:21 07/28/17 15:58 07/28/17 16:10 07/28/17 16:10 07/28/17 16:10 General appearance: Present: A&O X 0, no acute distress - Respiratory Respiratory exam: Present: CTAB. Absent: accessory muscle use, rales, rhonchi, wheezes Internal Medicine: Result - Labs CBC & Chem 7: 07/28/17 09:20 07/28/17 09:20 Labs: Short CBC 07/28/17 Range/Units 09:20 WBC 18.6 H (4.3-11.1) K/mcL Hgb 11.1 L (12.9-16.9) g/dL Hct 32.9 L (37.5-50.1) % Plt Count 255 (140-400) K/mcL Neutrophils # 15.4 H (1.6-8.9) K/mcL BMP 07/28/17 09:20 Sodium 147 H Potassium 3.1 L Chloride 119 H Carbon Dioxide 24 BUN 22 Creatinine 0.75 Glucose 215 H Calcium 8.1 L - ABG Interpretation ABG results: ABG ABG pH 7.38 pH Units (7.32-7.45) 07/20/17 17:57 ABG pCO2 40 mmHg (35-45) 07/20/17 17:57 ABG pO2 372 mmHg (85-104) H 07/20/17 17:57 ABG O2 Saturation 100 % (95-98) H 07/20/17 17:57 PT/INR, D-dimer PT 14.2 Seconds (9.4-12.1) H 07/21/17 02:47 - VTE Documentation of Mechanical Device: Intermittent pneumatic compression device Consult Discharge Plan - Plan Referrals: Andres Arevalo, DIAGNOSTICS TECH [Primary Care Provider] -
[2017-07-28] MEDS: Acetaminophen 325 MG TABLET PO PRN (20:20)
[2017-07-28] MEDS: Piperacillin/Tazobactam 3.375 GM in 0.9 % Sodium Chloride Mini Bag 100 ML IVPB SCH (23:17)
[2017-07-29] MEDS: Ipratropium/Albuterol Neb 3 ML IH SCH ×4 (03:54→22:04)
[2017-07-29] MEDS: *HR* Enoxaparin 40 MG/0.4 ML SYRINGE SQ SCH (04:29)
[2017-07-29] MEDS: D5% in 0.45% NACL 1,000 ML IVC SCH (04:32)
[2017-07-29] MEDS: Piperacillin/Tazobactam 3.375 GM in 0.9 % Sodium Chloride Mini Bag 100 ML IVPB SCH (08:10)
[2017-07-29] MEDS: Famotidine 20 MG TABLET PO SCH (08:41)
[2017-07-29] MEDS: Megestrol Acetate 400 MG/10 ML UDC PO SCH (08:41)
[2017-07-29] MEDS: Nicotine 21 MG PATCH.TD24 TD SCH (08:41)
[2017-07-29] MEDS: Aspirin Enteric Coated 81 MG Tablet PO SCH (08:41)
[2017-07-29] MEDS: Gabapentin 300 MG CAPSULE PO SCH ×2 (08:41→21:01)
--- NOTE | 2017-07-29 13:35 | Palliative Progress Note ---
Date of Encounter: 07/29/17 Time of Encounter: 07:30 - Assessment and plan (1) Prostate CA Current Visit: Yes Status: Chronic Assessment and plan: Events of the weekend have been noted. The patient has now opted to be DNR comfort care, discussing be going home with hospice the question is was he can be going home with. That decision should be made later today with the medical power of ip technology transactions attorney is here. (2) Altered mental status Current Visit: Yes Status: Acute Assessment and plan: This appears to be waxing and waning. Was worse this morning now better. This is definitely waxing and waning.. Qualifiers: Altered mental status type: disorientation Qualified Code(s): R41.0 - Disorientation, unspecified (3) Dyspnea Current Visit: Yes Status: Acute Assessment and plan: He is moving air well and speaking easily, although his speech is garbled at times. He does not complain of being short of breath. Changes today. Qualifiers: Dyspnea type: shortness of breath Qualified Code(s): R06.02 - Shortness of breath; R06.00 - Dyspnea, unspecified; R06.01 - Orthopnea (4) Metastatic lung cancer (metastasis from lung to other site) Current Visit: Yes Status: Chronic Assessment and plan: College he has nothing further to offer. Has had Pleurx placed, is tolerating it well,. The patient has decided on hospice care the question is where this is being decided by the family as we speak be a limited disposition tomorrow. Qualifiers: Laterality: unspecified laterality Qualified Code(s): C34.90 - Malignant neoplasm of unspecified part of unspecified bronchus or lung (5) Goals of care, counseling/discussion Current Visit: Yes Status: Chronic Assessment and plan: CODE status over the weekend was changed to comfort care. The patient does wish to go out with hospice, the question now is dizzy go home with his son with hospice or decedent was brother's house with hospice this does make a difference as they are into did not entirely different areas with regard to hospice. Family should decide this evening we can make disposition as early as tomorrow. I have discussed this with Dr. Perales the - Time Spent With Patient Total time spent is greater than 50% in coordination of care (as documented) at patient's floor/unit and/or counseling patient: - Subjective Interval history: He was difficult to awaken this morning, however when I return to talk to he and family round 10:00 he is awake alert somewhat confused but able to tell me that he is not having any problems currently.. - Constitutional Vitals: Abnormal lab results WBC 18.6 K/mcL (4.3-11.1) H 07/28/17 09:20 RBC 3.39 M/mcL (4.19-5.50) L 07/28/17 09:20 Hgb 11.1 g/dL (12.9-16.9) L 07/28/17 09:20 Hct 32.9 % (37.5-50.1) L 07/28/17 09:20 RDW 15.1 % (11.5-14.5) H 07/28/17 09:20 Band Neutrophils % 10.0 % (0-4) H 07/27/17 04:00 Metamyelocytes % 4.0 % (0) H 07/21/17 02:47 Neutrophils # 15.4 K/mcL (1.6-8.9) H 07/28/17 09:20 Nucleated RBCs/100 WBC 0.1 /100 WBC (0) H 07/28/17 09:20 Reactive Lymphocytes Present (Not Present) A 07/24/17 04:00 Toxic Granulation Present (Not Present) A 07/23/17 05:23 Large Platelets Present (Not Present) A 07/23/17 05:23 Immature Plt Fraction 6.3 % (1.1-6.1) H 07/23/17 05:23 Poikilocytosis 1+ (Not Present) A 07/20/17 17:43 Anisocytosis 1+ (Not Present) A 07/28/17 09:20 Daniel Cells 1+ (Not Present) A 07/20/17 17:43 PT 14.2 Seconds (9.4-12.1) H 07/21/17 02:47 ABG pO2 372 mmHg (85-104) H 07/20/17 17:57 ABG O2 Saturation 100 % (95-98) H 07/20/17 17:57 Sodium 147 mEq/L (136-145) H 07/28/17 09:20 Potassium 3.1 mEq/L (3.5-5.1) L 07/28/17 09:20 Chloride 119 mEq/L (98-107) H 07/28/17 09:20 BUN/Creatinine Ratio 29 (6-26) H 07/28/17 09:20 Glucose 215 mg/dL (70-105) H 07/28/17 09:20 POC Glucose 143 mg/dL (70-99) H 07/29/17 03:50 Hemoglobin A1c 8.2 % (-5.6) H 07/20/17 17:43 Calculated Osmolality 314 (280-300) H 07/28/17 09:20 Calcium 8.1 mg/dL (8.6-10.3) L 07/28/17 09:20 Direct Bilirubin 0.3 mg/dL (0.0-0.2) H 07/20/17 17:43 AST 9 Units/L (13-39) L 07/27/17 04:00 Serum Total Protein 4.7 g/dL (6.4-8.9) L 07/27/17 04:00 Albumin 2.4 g/dL (3.5-5.7) L 07/27/17 04:00 Globulin 2.3 g/dL (2.4-3.5) L 07/27/17 04:00 Albumin/Globulin Ratio 1.0 (1.1-2.2) L 07/27/17 04:00 Ur Specific [place] 1.027 (1.010-1.025) H 07/20/17 18:02 General appearance: Present: no acute distress - Head Head exam: Present: atraumatic, normal inspection - Eye Eye exam: Present: normal appearance - Respiratory Respiratory exam: Present: decreased breath sounds - Cardiovascular Cardiovascular exam: Present: RRR - GI/Abdominal GI/Abdominal exam: Present: normal bowel sounds, soft. Absent: tenderness - Extremities Exam Extremities exam: Absent: tenderness - Neurological Exam Neurological exam: Present: altered - Psychiatric Psychiatric exam: Absent: agitated, anxious - Skin Skin exam: Present: dry, mottled (Model findings are noted on both legs and even a little bit on the abdomen. However the patient is not hypotensive), warm Palliative Quality Palliative Quality: Screen for Code Status: Yes, Screen for Goals of Care: Yes, Screen for Pain: Yes, If Pain Regimen Started, Initiate Bowel Regimen: NA, Screen for Nausea/Vomitting: Yes Code Status: 07/21/17 08:03 DNR [Resuscitation Status: Active] [RES] Routine Comment: Resuscitation Status: DNR-Comfort Care-Arrest 07/28/17 11:35 DNR [Resuscitation Status: Active] [RES] Routine Comment: Resuscitation Status: DNR-Comfort Care - Labs CBC & Chem 7: 07/28/17 09:20 07/28/17 09:20 Labs: Laboratory Results - last 24 hr 07/28/17 07/28/17 07/28/17 00:01 03:25 08:16 POC Glucose 96 110 H 132 H 07/28/17 07/28/17 07/28/17 11:07 15:27 20:08 POC Glucose 159 H 114 H 73 07/28/17 07/29/17 23:29 03:50 POC Glucose 175 H 143 H - Impressions Impressions Brain MRI 07/26/17 16:29 IMPRESSION: Severely motion degraded examination without obvious acute abnormal or large new brain mass. Contrast was not administered. D/ / 07/26/2017 19:37:51 Jose Salas MD / shanel Interpreting Provider: Jose Salas MD - ABG Interpretation ABG results: ABG ABG pH 7.38 pH Units (7.32-7.45) 07/20/17 17:57 ABG pCO2 40 mmHg (35-45) 07/20/17 17:57 ABG pO2 372 mmHg (85-104) H 07/20/17 17:57 ABG O2 Saturation 100 % (95-98) H 07/20/17 17:57 PT/INR, D-dimer PT 14.2 Seconds (9.4-12.1) H 07/21/17 02:47 Consult Discharge Plan - Plan Referrals: Andres Arevalo, NEEDLE LOOM SETTER [Primary Care Provider] -
--- NOTE | 2017-07-29 15:53 | Discharge Summary ---
- NOTES TO OUTPATIENT PROVIDER Notes to Outpatient Provider: Home hospice Date of Encounter: 07/29/17 Time of Encounter: 11:00 - Discharge Diagnosis (1) Metastatic lung cancer (metastasis from lung to other site) Priority: Primary Status: Chronic Qualifiers: Laterality: unspecified laterality Qualified Code(s): C34.90 - Malignant neoplasm of unspecified part of unspecified bronchus or lung (2) Generalized weakness Priority: Primary Status: Chronic (3) Prostate CA Priority: Primary Status: Chronic (4) Pleural effusion Priority: Primary Status: Chronic (5) Sepsis Priority: Primary Status: Resolved Qualifiers: Sepsis type: sepsis due to unspecified organism Qualified Code(s): A41.9 - Sepsis, unspecified organism (6) Pneumonia Priority: Primary Status: Suspected Qualifiers: Pneumonia type: aspiration pneumonia Aspiration pneumonia type: unspecified Laterality: right Lung location: lower lobe of lung Qualified Code(s): J69.0 - Pneumonitis due to inhalation of food and vomit (7) Goals of care, counseling/discussion Priority: Primary Status: Chronic Hospital course: Patient is a 71-year-old male with past medical history significant for prostate cancer, type 2 diabetes, hypertension, prior CVA and metastatic lung cancer who presents to emergency room on 07/21/17 from home due to altered mental status. Per chart review, family called EMS due to altered mental status for the last 2 days. He also reportedly experienced a fall with unknown down time. He had chemotherapy on 07/16/17 as well as gamma knife radiation to the brain for his metastatic lung cancer on 06/27/17. He also had a thoracentesis performed on 07/05 with 1.5L of fluid drained in [facility]. In the ER, patient was reportedly hypoxic with oxygen saturation of 71% on room air. Respirations 24, pulse of 99. Labs were significant for a WBC of 14.5 Imaging performed in the emergency room demonstrated right hemithorax filled pleural effusion and consolidation with heart and mediastinal shift, metastatic disease of the right adrenal gland and retroperitoneum, inferior right-sided prostate gland prominence likely malignancy, no evidence of acute trauma. Thoracentesis was performed emergency department with 2.5 L fluid obtained. His hypoxia did improve with this and oxygen administration, however his blood pressure did drop to a systolics of 80s. He was started on albumin in the emergency department. During patients hospital stay patient remained weak although altered mental status improved and patient was alert and oriented and able to respond to questions. Pulmonology was consulted, for Pleurx catheter in the future for recurrent pleural effusion with lung malignancy. MRI of brain without contrast showed known parietal brain metastasis which has not significantly enlarged. Hematology/oncology was also consulted with recommendations to no longer continue any chemotherapy therapy due to patient too weak to tolerate. Palliative care was also consulted for recommendations for hospice. Family meetings were held and family has decided to take home patient home with home hospice. Patient will be discharged with home hospice when set up. - Time Spent with Patient Total time spent providing and/or coordinating discharge services: Less than 30 minutes - Discharge Medications Home Medications: Albuterol Sulfate [Proair Hfa] 2 puff IH QID 03/25/17 [History] Aspirin Enteric Coated [Aspirin EC] 81 mg PO DAILY 03/25/17 [History] Citalopram Hydrobromide [Celexa] 20 mg PO DAILY 03/25/17 [History] Gabapentin [Neurontin] 300 mg PO TID 03/25/17 [History] Insulin ASPART [Novolog Flexpen] 6 unit SQ AD PRN 03/25/17 [History] Lisinopril [Zestril] 10 mg PO DAILY 03/25/17 [History] Metformin HCl [Glucophage] 1,000 mg PO BID 03/25/17 [History] Tiotropium [Spiriva] 18 mcg IH DAILY 03/25/17 [History] Atorvastatin [Lipitor] 40 mg PO HS 05/08/17 [History] Famotidine [Pepcid] 40 mg PO DAILY 05/08/17 [History] Dexamethasone [Decadron] 4 mg PO BID #36 tab 06/07/17 [Rx] Ondansetron HCl [Zofran] 4 mg PO Q6H PRN #30 tablet 06/07/17 [Rx] Prochlorperazine Maleate [Compazine] 10 mg PO Q6HR PRN #90 tablet 06/07/17 [Rx] Megestrol Acetate [Megace] 800 mg PO DAILY #400 mls 07/08/17 [Rx] Tramadol HCl [Ultram] 50 mg PO BID PRN 07/08/17 [History] Tetrahydrozoline HCl [Eye Drops] 1 drop OP BID 07/21/17 [History] Allergies/Adverse Reactions: 3 Allergy/AdvReac Type Severity Reaction Status Date / Time No Known Allergies Allergy Verified 07/16/17 11:03 Date of admission: 07/21/17 01:50 Primary care physician: Andres Arevalo CNP Consults: 07/22/17 09:35 Consult to Occupational Therapy [CONS] Routine Comment: Evaluate, develop and implement POC Reason for Consult: Patient fell prior to admission. Evaluating plan for Discharge. Does patient have active BEDREST order?: No Is patient medically & hemodynamically stable?: Yes Patient assessed for mobility or mobilized this visit?: No Consult to Physical Therapy [CONS] Routine Comment: Evaluate, develop and implement POC Reason for Consult: Patient fell prior to admission. Evaluating plan for discharge. Does patient have active BEDREST order?: No Is patient medically & hemodynamically stable?: Yes Patient assessed for mobility or mobilized this visit?: No 07/25/17 11:51 Consult to Oncology Hematology [CONS] Routine Consulting Provider: Urszula Callahan Reason for Consult: Known to practice, metastatic cancer Call Completed: No 07/26/17 10:39 Consult to Pulmonology [CONS] Stat Consulting Provider: [facility] Reason for Consult: probable recu rrent pleural effusion Time Notified: 10:30 Call Completed: Yes 07/28/17 16:16 Consult to Inside Sales Account Manager [CONS] Routine Reason for SW Consult: D/C PLANNING. FROM HOME. PLANNING FOR HOME WITH FAMILY AND HOSPICE VS ECF. - Constitutional Vitals: Temp Pulse Resp BP Pulse Ox 98.1 F 96 20 113/94 100 07/29/17 10:57 07/29/17 10:57 07/29/17 10:57 07/29/17 10:57 07/29/17 10:57 General appearance: Present: A&O X 0, A&O X 1, no acute distress - Respiratory Respiratory exam: Present: CTAB. Absent: accessory muscle use, rales, rhonchi, wheezes - Cardiovascular Cardiovascular exam: Present: RRR, +S1, +S2. Absent: diastolic murmur, gallop, rubs, systolic murmur - Patient Status Disposition: Hospice - Home Condition: Fair - Discharge Instructions Follow Up With: Andres Arevalo CNP [Primary Care Provider] - - VTE Documentation of Mechanical Device: Intermittent pneumatic compression device
--- NOTE | 2017-07-29 16:39 | Physician Discharge Referral ---
Home Health/Hosp Referral Info Transfer to: Hospice - Diagnosis (1) Metastatic lung cancer (metastasis from lung to other site) Priority: Primary Status: Chronic (2) Generalized weakness Priority: Primary Status: Chronic (3) Prostate CA Priority: Primary Status: Chronic (4) Pleural effusion Priority: Primary Status: Chronic (5) Sepsis Priority: Primary Status: Resolved (6) Pneumonia Priority: Primary Status: Suspected (7) Goals of care, counseling/discussion Priority: Primary Status: Chronic - Respiratory Orders Smoking Cessation: Smoking cessation has been advised. For more information, call the [place] Tobacco Quit Line at 7-609-SQDL-NOW. - Transfer Medications Home Medications: Albuterol Sulfate [Proair Hfa] 2 puff IH QID 03/25/17 [History] Aspirin Enteric Coated [Aspirin EC] 81 mg PO DAILY 03/25/17 [History] Citalopram Hydrobromide [Celexa] 20 mg PO DAILY 03/25/17 [History] Gabapentin [Neurontin] 300 mg PO TID 03/25/17 [History] Insulin ASPART [Novolog Flexpen] 6 unit SQ AD PRN 03/25/17 [History] Lisinopril [Zestril] 10 mg PO DAILY 03/25/17 [History] Metformin HCl [Glucophage] 1,000 mg PO BID 03/25/17 [History] Tiotropium [Spiriva] 18 mcg IH DAILY 03/25/17 [History] Atorvastatin [Lipitor] 40 mg PO HS 05/08/17 [History] Famotidine [Pepcid] 40 mg PO DAILY 05/08/17 [History] Dexamethasone [Decadron] 4 mg PO BID #36 tab 06/07/17 [Rx] Ondansetron HCl [Zofran] 4 mg PO Q6H PRN #30 tablet 06/07/17 [Rx] Prochlorperazine Maleate [Compazine] 10 mg PO Q6HR PRN #90 tablet 06/07/17 [Rx] Megestrol Acetate [Megace] 800 mg PO DAILY #400 mls 07/08/17 [Rx] Tramadol HCl [Ultram] 50 mg PO BID PRN 07/08/17 [History] Tetrahydrozoline HCl [Eye Drops] 1 drop OP BID 07/21/17 [History] Allergies/Adverse Reactions: 3 Allergy/AdvReac Type Severity Reaction Status Date / Time No Known Allergies Allergy Verified 07/16/17 11:03 Certification: Further, I certify that my clinical findings support that this patient is homebound (i.e. absences from home require considerable and taxing effort and are for medical reasons or roman catholic services or infrequently or short duration when for other reasons) because: Homebound Reason: Patient requires assistance of a person or device to safely leave home Attestation: My signature below is to certify that this patient is under my care and that I, or nurse practitioner, or a physician's graduate teaching assistant working with me, has a face-to -face encounter with this patient.
[2017-07-30] MEDS: D5% in 0.45% NACL 1,000 ML IVC SCH ×2 (01:09→18:33)
[2017-07-30] MEDS: Ipratropium/Albuterol Neb 3 ML IH SCH ×4 (04:00→22:00)
[2017-07-30] MEDS: *HR* Enoxaparin 40 MG/0.4 ML SYRINGE SQ SCH (06:03)
[2017-07-30] MEDS: Aspirin Enteric Coated 81 MG Tablet PO SCH (09:15)
[2017-07-30] MEDS: Nicotine 21 MG PATCH.TD24 TD SCH (09:15)
[2017-07-30] MEDS: Megestrol Acetate 400 MG/10 ML UDC PO SCH (09:15)
[2017-07-30] MEDS: Gabapentin 300 MG CAPSULE PO SCH ×2 (09:15→20:36)
[2017-07-30] MEDS: Famotidine 20 MG TABLET PO SCH (09:15)
--- NOTE | 2017-07-30 09:58 | Palliative Progress Note ---
Date of Encounter: 07/30/17 Time of Encounter: 09:20 - Assessment and plan (1) Prostate CA Current Visit: Yes Status: Chronic Assessment and plan: Discharge today with [facility] patient will be returning to [facility] to live with his brother.. (2) Altered mental status Current Visit: Yes Status: Acute Assessment and plan: This appears to be waxing and waning. Much better this morning and was doing well yesterday afternoon as well. This is definitely waxing and waning.. Qualifiers: Altered mental status type: disorientation Qualified Code(s): R41.0 - Disorientation, unspecified (3) Dyspnea Current Visit: Yes Status: Acute Assessment and plan: Doing well this morning and plan shortness of breath. Qualifiers: Dyspnea type: shortness of breath Qualified Code(s): R06.02 - Shortness of breath; R06.00 - Dyspnea, unspecified; R06.01 - Orthopnea (4) Metastatic lung cancer (metastasis from lung to other site) Current Visit: Yes Status: Chronic Assessment and plan: She will be going out of hospice this will be [facility] in [facility] as the patient will be going home to live with his brother.. Qualifiers: Laterality: unspecified laterality Qualified Code(s): C34.90 - Malignant neoplasm of unspecified part of unspecified bronchus or lung (5) Goals of care, counseling/discussion Current Visit: Yes Status: Chronic Assessment and plan: CODE status over the weekend was changed to comfort care. She will be going home with his brother will be with [facility]. - Time Spent With Patient Total time spent is greater than 50% in coordination of care (as documented) at patient's floor/unit and/or counseling patient: - Subjective Interval history: He si awake and a alert this am no c/o looking fowad to going home - Constitutional Vitals: Abnormal lab results WBC 18.6 K/mcL (4.3-11.1) H 07/28/17 09:20 RBC 3.39 M/mcL (4.19-5.50) L 07/28/17 09:20 Hgb 11.1 g/dL (12.9-16.9) L 07/28/17 09:20 Hct 32.9 % (37.5-50.1) L 07/28/17 09:20 RDW 15.1 % (11.5-14.5) H 07/28/17 09:20 Band Neutrophils % 10.0 % (0-4) H 07/27/17 04:00 Metamyelocytes % 4.0 % (0) H 07/21/17 02:47 Neutrophils # 15.4 K/mcL (1.6-8.9) H 07/28/17 09:20 Nucleated RBCs/100 WBC 0.1 /100 WBC (0) H 07/28/17 09:20 Reactive Lymphocytes Present (Not Present) A 07/24/17 04:00 Toxic Granulation Present (Not Present) A 07/23/17 05:23 Large Platelets Present (Not Present) A 07/23/17 05:23 Immature Plt Fraction 6.3 % (1.1-6.1) H 07/23/17 05:23 Poikilocytosis 1+ (Not Present) A 07/20/17 17:43 Anisocytosis 1+ (Not Present) A 07/28/17 09:20 Bennett Cells 1+ (Not Present) A 07/20/17 17:43 PT 14.2 Seconds (9.4-12.1) H 07/21/17 02:47 ABG pO2 372 mmHg (85-104) H 07/20/17 17:57 ABG O2 Saturation 100 % (95-98) H 07/20/17 17:57 Sodium 147 mEq/L (136-145) H 07/28/17 09:20 Potassium 3.1 mEq/L (3.5-5.1) L 07/28/17 09:20 Chloride 119 mEq/L (98-107) H 07/28/17 09:20 BUN/Creatinine Ratio 29 (6-26) H 07/28/17 09:20 Glucose 215 mg/dL (70-105) H 07/28/17 09:20 POC Glucose 217 mg/dL (70-99) H 07/29/17 23:21 Hemoglobin A1c 8.2 % (-5.6) H 07/20/17 17:43 Calculated Osmolality 314 (280-300) H 07/28/17 09:20 Calcium 8.1 mg/dL (8.6-10.3) L 07/28/17 09:20 Direct Bilirubin 0.3 mg/dL (0.0-0.2) H 07/20/17 17:43 AST 9 Units/L (13-39) L 07/27/17 04:00 Serum Total Protein 4.7 g/dL (6.4-8.9) L 07/27/17 04:00 Albumin 2.4 g/dL (3.5-5.7) L 07/27/17 04:00 Globulin 2.3 g/dL (2.4-3.5) L 07/27/17 04:00 Albumin/Globulin Ratio 1.0 (1.1-2.2) L 07/27/17 04:00 Ur Specific [place] 1.027 (1.010-1.025) H 07/20/17 18:02 General appearance: Present: no acute distress - Respiratory Respiratory exam: Present: decreased breath sounds - Cardiovascular Cardiovascular exam: Present: RRR - GI/Abdominal GI/Abdominal exam: Present: normal bowel sounds, soft. Absent: tenderness - Extremities Exam Extremities exam: Absent: tenderness - Neurological Exam Neurological exam: Present: alert - Psychiatric Psychiatric exam: Absent: agitated, anxious - Skin Skin exam: Present: dry, warm Palliative Quality Palliative Quality: Screen for Code Status: Yes, Screen for Goals of Care: Yes, Screen for Pain: Yes, If Pain Regimen Started, Initiate Bowel Regimen: NA, Screen for Nausea/Vomitting: Yes Code Status: 07/21/17 08:03 DNR [Resuscitation Status: Active] [RES] Routine Comment: Resuscitation Status: DNR-Comfort Care-Arrest 07/28/17 11:35 DNR [Resuscitation Status: Active] [RES] Routine Comment: Resuscitation Status: DNR-Comfort Care - Labs CBC & Chem 7: 07/28/17 09:20 07/28/17 09:20 Labs: Laboratory Results - last 24 hr 07/29/17 07/29/17 07/29/17 07:24 11:04 16:27 POC Glucose 120 H 245 H 199 H 07/29/17 07/29/17 20:59 23:21 POC Glucose 201 H 217 H - ABG Interpretation ABG results: ABG ABG pH 7.38 pH Units (7.32-7.45) 07/20/17 17:57 ABG pCO2 40 mmHg (35-45) 04/07/18 17:57 ABG pO2 372 mmHg (85-104) H 07/20/17 17:57 ABG O2 Saturation 100 % (95-98) H 07/20/17 17:57 PT/INR, D-dimer PT 14.2 Seconds (9.4-12.1) H 07/21/17 02:47 Consult Discharge Plan - Plan Referrals: Andres Arevalo, FELIX [Primary Care Provider] - Prescriptions: HYDROcodone/Acet 5/325 mg [[place] 5-325 mg] 1 tab PO Q4H PRN 5 Days #30 tab PRN Reason: pain or sob
--- NOTE | 2017-07-30 15:55 | Internal Med Progress Note ---
Date of Encounter: 07/30/17 Time of Encounter: 14:40 - Assessment and plan (1) Pleural effusion Current Visit: Yes Status: Chronic Assessment and plan: Massive right-sided pleural effusion status post thoracentesis in the emergency room with 1 L of serosanguineous fluid aspiration. Fluid analysis was not sent, but effusion likely thought to be malignant. Noted to have reaccumulation of pleural effusion, now on Pleurx catheter. Continue supportive care and supplemental oxygen. Stable for discharge home with home hospice, discharge pending delivery of all necessary DME. 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 Oncology has been on board, recommended palliative care with no further plans for chemotherapy due to patient's deteriorating functional status and debilitation. Qualifiers: Laterality: unspecified laterality Qualified Code(s): C34.90 - Malignant neoplasm of unspecified part of unspecified bronchus or lung (5) Goals of care, counseling/discussion Current Visit: Yes Status: Chronic (6) Sepsis Current Visit: Yes Status: Resolved Qualifiers: Sepsis type: sepsis due to unspecified organism Qualified Code(s): A41.9 - Sepsis, unspecified organism (7) Pneumonia Current Visit: Yes Status: Suspected Assessment and plan: Completed a 9 day course of IV Zosyn. Qualifiers: Pneumonia type: aspiration pneumonia Aspiration pneumonia type: unspecified Laterality: right Lung location: lower lobe of lung Qualified Code(s): J69.0 - Pneumonitis due to inhalation of food and vomit - Time Spent With Patient Total time spent is greater than 50% in coordination of care (as documented) at patient's floor/unit and/or counseling patient: - Subjective Interval history: Noted to be confused and weak, unable to provide history due to altered mental status. Denies pain, shortness of breath. Awaiting discharge with home hospice. - Constitutional Vitals: Temp Pulse Resp BP Pulse Ox 97.1 F L 88 24 123/77 91 07/30/17 15:39 07/30/17 15:39 07/30/17 15:39 07/30/17 15:39 07/30/17 15:39 General appearance: Present: A&O X 1. Absent: answers questions appropriately - Respiratory Respiratory exam: Present: decreased breath sounds (At the right base), CTAB. Absent: accessory muscle use, rales, rhonchi, wheezes - Cardiovascular Cardiovascular exam: Present: RRR, +S1, +S2. Absent: diastolic murmur, gallop, rubs, systolic murmur - GI/Abdominal GI/Abdominal exam: Present: normal bowel sounds, soft, no peritoneal signs. Absent: distended, tenderness Internal Medicine: Result - Labs CBC & Chem 7: 07/28/17 09:20 07/28/17 09:20 - ABG Interpretation ABG results: ABG ABG pH 7.38 pH Units (7.32-7.45) 07/20/17 17:57 ABG pCO2 40 mmHg (35-45) 07/20/17 17:57 ABG pO2 372 mmHg (85-104) H 07/20/17 17:57 ABG O2 Saturation 100 % (95-98) H 07/20/17 17:57 PT/INR, D-dimer PT 14.2 Seconds (9.4-12.1) H 07/21/17 02:47 - VTE Documentation of Mechanical Device: Intermittent pneumatic compression device Consult Discharge Plan - Plan Referrals: Andres Arevalo CNP [Primary Care Provider] - Prescriptions: HYDROcodone/Acet 5/325 mg [[place] 5-325 mg] 1 tab PO Q4H PRN 5 Days #30 tab PRN Reason: pain or sob
[2017-07-31 03:58] VITALS: BP 107/49
[2017-07-31] MEDS: Ipratropium/Albuterol Neb 3 ML IH SCH ×2 (04:21→11:15)
[2017-07-31] MEDS: *HR* Enoxaparin 40 MG/0.4 ML SYRINGE SQ SCH (06:35)
--- NOTE | 2017-07-31 08:04 | Palliative Progress Note ---
Date of Encounter: 07/31/17 Time of Encounter: 07:00 - Assessment and plan (1) Prostate CA Current Visit: Yes Status: Chronic Assessment and plan: Discharge today with [facility] patient will be returning to [facility] to live with his brother.. The plan yesterday, hopefully to be the plan today. Plan is dependent on hospice having all the gear in the house and the family being available to sign for him. (2) Altered mental status Current Visit: Yes Status: Acute Qualifiers: Altered mental status type: disorientation Qualified Code(s): R41.0 - Disorientation, unspecified (3) Dyspnea Current Visit: Yes Status: Acute Assessment and plan: Doing well this morning and plan shortness of breath. Qualifiers: Dyspnea type: shortness of breath Qualified Code(s): R06.02 - Shortness of breath; R06.00 - Dyspnea, unspecified; R06.01 - Orthopnea (4) Metastatic lung cancer (metastasis from lung to other site) Current Visit: Yes Status: Chronic Assessment and plan: he will be going out with hospice this will be [facility] in [facility] as the patient will be going home to live with his brother.. For the patient revealed go out today this is just pending me set up and having the family available to sign for him. Qualifiers: Laterality: unspecified laterality Qualified Code(s): C34.90 - Malignant neoplasm of unspecified part of unspecified bronchus or lung (5) Goals of care, counseling/discussion Current Visit: Yes Status: Chronic Assessment and plan: CODE status over the weekend was changed to comfort care. he will be going home with his brother will be with [facility]. Before this can take place today. DME should have been set up yesterday - Time Spent With Patient Total time spent is greater than 50% in coordination of care (as documented) at patient's floor/unit and/or counseling patient: - Subjective Interval history: He is awake and a alert this am complains of a little pain in the side, but does not feel as bad enough to ask for anything. Speech is intelligible but his lower words is sometimes quite hard to follow. I believe that he real significant complaints as he is not complaining of anything other than very minor pain for which he does not wish to have anything, that appear to be in any discomfort. Discharge is pending having all the equipment set up by hospice and hopefully we will get out today. - Constitutional Vitals: Abnormal lab results WBC 18.6 K/mcL (4.3-11.1) H 07/28/17 09:20 RBC 3.39 M/mcL (4.19-5.50) L 07/28/17 09:20 Hgb 11.1 g/dL (12.9-16.9) L 07/28/17 09:20 Hct 32.9 % (37.5-50.1) L 07/28/17 09:20 RDW 15.1 % (11.5-14.5) H 07/28/17 09:20 Band Neutrophils % 10.0 % (0-4) H 07/27/17 04:00 Metamyelocytes % 4.0 % (0) H 07/21/17 02:47 Neutrophils # 15.4 K/mcL (1.6-8.9) H 07/28/17 09:20 Nucleated RBCs/100 WBC 0.1 /100 WBC (0) H 07/28/17 09:20 Reactive Lymphocytes Present (Not Present) A 07/24/17 04:00 Toxic Granulation Present (Not Present) A 07/23/17 05:23 Large Platelets Present (Not Present) A 07/23/17 05:23 Immature Plt Fraction 6.3 % (1.1-6.1) H 07/23/17 05:23 Poikilocytosis 1+ (Not Present) A 07/20/17 17:43 Anisocytosis 1+ (Not Present) A 07/28/17 09:20 Daniel Cells 1+ (Not Present) A 07/20/17 17:43 PT 14.2 Seconds (9.4-12.1) H 07/21/17 02:47 ABG pO2 372 mmHg (85-104) H 07/20/17 17:57 ABG O2 Saturation 100 % (95-98) H 07/20/17 17:57 Sodium 147 mEq/L (136-145) H 07/28/17 09:20 Potassium 3.1 mEq/L (3.5-5.1) L 07/28/17 09:20 Chloride 119 mEq/L (98-107) H 07/28/17 09:20 BUN/Creatinine Ratio 29 (6-26) H 07/28/17 09:20 Glucose 215 mg/dL (70-105) H 07/28/17 09:20 POC Glucose 205 mg/dL (70-99) H 07/30/17 10:59 Hemoglobin A1c 8.2 % (-5.6) H 07/20/17 17:43 Calculated Osmolality 314 (280-300) H 07/28/17 09:20 Calcium 8.1 mg/dL (8.6-10.3) L 07/28/17 09:20 Direct Bilirubin 0.3 mg/dL (0.0-0.2) H 07/20/17 17:43 AST 9 Units/L (13-39) L 07/27/17 04:00 Serum Total Protein 4.7 g/dL (6.4-8.9) L 07/27/17 04:00 Albumin 2.4 g/dL (3.5-5.7) L 07/27/17 04:00 Globulin 2.3 g/dL (2.4-3.5) L 07/27/17 04:00 Albumin/Globulin Ratio 1.0 (1.1-2.2) L 07/27/17 04:00 Ur Specific [place] 1.027 (1.010-1.025) H 07/20/17 18:02 General appearance: Present: no acute distress - Respiratory Respiratory exam: Present: decreased breath sounds - Cardiovascular Cardiovascular exam: Present: RRR - GI/Abdominal GI/Abdominal exam: Present: normal bowel sounds, soft. Absent: tenderness - Extremities Exam Extremities exam: Present: normal inspection - Neurological Exam Neurological exam: Present: alert. Absent: oriented X3 (Oriented to self only) - Psychiatric Psychiatric exam: Absent: agitated, anxious - Skin Skin exam: Present: dry, warm Palliative Quality Palliative Quality: Screen for Code Status: Yes, Screen for Goals of Care: Yes, Screen for Pain: Yes, If Pain Regimen Started, Initiate Bowel Regimen: NA, Screen for Nausea/Vomitting: Yes Code Status: 07/21/17 08:03 DNR [Resuscitation Status: Active] [RES] Routine Comment: Resuscitation Status: DNR-Comfort Care-Arrest 07/28/17 11:35 DNR [Resuscitation Status: Active] [RES] Routine Comment: Resuscitation Status: DNR-Comfort Care - Labs CBC & Chem 7: 04/15/18 09:20 07/28/17 09:20 Labs: Laboratory Results - last 24 hr 07/30/17 07/30/17 07:45 10:59 POC Glucose 134 H 205 H - ABG Interpretation ABG results: ABG ABG pH 7.38 pH Units (7.32-7.45) 07/20/17 17:57 ABG pCO2 40 mmHg (35-45) 07/20/17 17:57 ABG pO2 372 mmHg (85-104) H 07/20/17 17:57 ABG O2 Saturation 100 % (95-98) H 07/20/17 17:57 PT/INR, D-dimer PT 14.2 Seconds (9.4-12.1) H 07/21/17 02:47 Consult Discharge Plan - Plan Referrals: Andres Arevalo, SHREDDER TENDER [Primary Care Provider] - Prescriptions: HYDROcodone/Acet 5/325 mg [[place] 5-325 mg] 1 tab PO Q4H PRN 5 Days #30 tab PRN Reason: pain or sob
[2017-07-31] MEDS: D5% in 0.45% NACL 1,000 ML IVC SCH (08:21)
[2017-07-31] MEDS: Nicotine 21 MG PATCH.TD24 TD SCH (08:34)
[2017-07-31] MEDS: Famotidine 20 MG TABLET PO SCH (08:35)
[2017-07-31] MEDS: Megestrol Acetate 400 MG/10 ML UDC PO SCH (08:35)
[2017-07-31] MEDS: Gabapentin 300 MG CAPSULE PO SCH (08:35)
[2017-07-31] MEDS: Aspirin Enteric Coated 81 MG Tablet PO SCH (08:35)
--- NOTE | 2017-07-31 15:54 | Internal Med Progress Note ---
Date of Encounter: 07/31/17 Time of Encounter: 11:00 - Assessment and plan (1) Pleural effusion Status: Chronic Assessment and plan: Massive right-sided pleural effusion status post thoracentesis in the emergency room with 1 L of serosanguineous fluid aspiration. Fluid analysis was not sent, but effusion likely thought to be malignant. Noted to have reaccumulation of pleural effusion, now on Pleurx catheter. Continue supportive care and supplemental oxygen. Stable for discharge home with home hospice, discharge pending delivery of all necessary DME, most likely today. (2) Prostate CA Status: Chronic (3) Generalized weakness Status: Chronic Assessment and plan: Likely due to metastatic cancer Goals of care discussed with family for palliative and hospice as above (4) Metastatic lung cancer (metastasis from lung to other site) Status: Chronic Qualifiers: Laterality: unspecified laterality Qualified Code(s): C34.90 - Malignant neoplasm of unspecified part of unspecified bronchus or lung (5) Goals of care, counseling/discussion Status: Chronic (6) Sepsis Status: Resolved Qualifiers: Sepsis type: sepsis due to unspecified organism Qualified Code(s): A41.9 - Sepsis, unspecified organism (7) Pneumonia Status: Suspected Qualifiers: Pneumonia type: aspiration pneumonia Aspiration pneumonia type: unspecified Laterality: right Lung location: lower lobe of lung Qualified Code(s): J69.0 - Pneumonitis due to inhalation of food and vomit - Time Spent With Patient Total time spent is greater than 50% in coordination of care (as documented) at patient's floor/unit and/or counseling patient: - Subjective Interval history: Noted to be confused and weak, unable to provide history due to altered mental status. Speaks inappropriately, but reports he is doing okay; plan of care d/w patient's [id number] at bedside, patient is awaiting transfer home with Hospice care today; - Constitutional Vitals: Temp Pulse Resp BP Pulse Ox 97.6 F 96 17 107/49 95 07/31/17 03:55 07/31/17 03:55 07/31/17 11:16 07/31/17 04:21 07/31/17 11:16 General appearance: Present: A&O X 1. Absent: answers questions appropriately - Cardiovascular Cardiovascular exam: Present: RRR, +S1, +S2. Absent: diastolic murmur, gallop, rubs, systolic murmur Internal Medicine: Result - Labs CBC & Chem 7: 07/28/17 09:20 07/28/17 09:20 - ABG Interpretation ABG results: ABG ABG pH 7.38 pH Units (7.32-7.45) 07/20/17 17:57 ABG pCO2 40 mmHg (35-45) 07/20/17 17:57 ABG pO2 372 mmHg (85-104) H 07/20/17 17:57 ABG O2 Saturation 100 % (95-98) H 07/20/17 17:57 PT/INR, D-dimer PT 14.2 Seconds (9.4-12.1) H 07/21/17 02:47 - VTE Documentation of Mechanical Device: Intermittent pneumatic compression device Consult Discharge Plan - Plan Instructions: Hydrocodone/Acetaminophen (By mouth) Referrals: Andres Arevalo, STORE CLERK [Primary Care Provider] - (THIS PATIENT IS GOING TO HOSPICE SO THEY WILL MAKE HIS APPOINTMENT IF ONE IS NEEDED) Prescriptions: HYDROcodone/Acet 5/325 mg [[place] 5-325 mg] 1 tab PO Q4H PRN 5 Days #30 tab PRN Reason: pain or sob
--- NOTE | 2017-08-02 09:14 | Electrocardiograph Report ---
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
== END 2017-07-31 12:46 | disposition hospice, home (50) | DRG 871 ==
LOC: 2NNU 17:23 → EMEROO 17:23 → 2NNU 22:36 → SUATTDRO 07-21 01:50
PROVIDERS: ADMIT Family Medicine; ATTEND Internal Medicine